=== PATIENT | female | born 1960 | race African-American/Black ===

== ENCOUNTER 2017-12-08 15:16 | Observation (INO) | payer OTHER ==
[2017-12-08] MEDS ORDERED: ONDANSETRON 4 MG/2 ML VIAL ONE ×2 (16:13→17:32)
[2017-12-08] MEDS ORDERED: ASPIRIN 81 MG CHEWABLE TABLET ONE (16:13)
[2017-12-08] MEDS ORDERED: PANTOPRAZOLE 40 MG INJ ONE (16:13)
[2017-12-08] MEDS ORDERED: Morphine 2 MG/2 ML SYR ONE (16:15)
[2017-12-08 16:37] LABS: Absolute Monocytes 0.8 K/uL (0.1-1.3); Absolute Neutrophil 8.5 K/uL (1.8-8.0); Basophils % 0.6 % (0-1.3); Eosinophils % 2.3 % (0-4.4); Hematocrit 38.9 % (36.0-45.0); Lymphocytes % 23.9 % (15.3-44.8); MCH 26.4 pg (27.0-35.0); MCV 83.2 fL (80-100); MPV 9.2 fL (7.6-11.3); RBC Red Blood Cell Count 4.68 M/uL (3.86-4.86)
[2017-12-08 16:45] LABS: Protime INR 0.97
[2017-12-08 16:48] LABS: Bicarbonate 26 mEq/L (21-31); Glucose Level 232 mg/dL (65-120); Potassium 3.4 mEq/L (3.6-5.0); Sodium Level 137 mEq/L (135-145)
[2017-12-08 16:54] LABS: ALT/SGPT 22 IU/L (10-60); AST/SGOT 21 IU/L (10-42); Albumin 3.7 g/dL (3.2-5.5); Alkaline Phosphatase 72 IU/L (42-121); BUN Blood Urea Nitrogen 10 mg/dL (6-20); Bilirubin Direct 0.1 mg/dL (0-0.2); Bilirubin Total 0.5 mg/dL (0.3-1.2); Creatine Phosphokinase 76 IU/L (22-269); Magnesium 1.8 mg/dL (1.8-2.5); Protein, Total 7.1 g/dL (6.0-8.3)
--- NOTE | 2017-12-08 16:54 | RAD REPORT ---
EXAM DESCRIPTION: RAD - Chest Single View - 12/08/2017 4:29 pm CLINICAL HISTORY: Chest pain COMPARISON: June 2017 TECHNIQUE: AP portable chest image was obtained 1625 hours . FINDINGS: Lungs are clear. Heart and vasculature are normal. No measurable pleural effusion and no p neumothorax. No gross bony abnormality seen. No acute aortic findings suspected. IMPRESSION: No acute cardiopulmonary process. No significant interval change.
[2017-12-08 16:57] LABS: CKMB Creatine Kinase MB 1.2 ng/ml (0.3-4.0)
[2017-12-08 17:04] LABS: Lipase 22 U/L (22-51)
[2017-12-08] MEDS ORDERED: FENTANYL CITR 100 MCG/2 ML ONE (17:32)
--- NOTE | 2017-12-08 18:08 | ER ---
Nurse's Notes [facility] Name: Karen Lyons Age: 57 yrs Sex: Female : 1960 Arrival Date: 12/08/2017 Time: 15:18 Bed 20 Private MD: Mila Moraes C Diagnosis: Chest pain, unspecified Presentation: 12/08 15:39 Presenting complaint: Patient states: " I started having CP at around 1030 and it ph hasn't gone away. I have also been having trouble keeping my blood sugar under 300." Pt reports sharp pain in center of chest, also reports nausea, denies SOB. Transition of care: patient was not received from another setting of care. Onset of symptoms was December 08, 2017. Initial Sepsis Screen: Does the patient meet any 2 criteria? No. Patient's initial sepsis screen is negative. Does the patient have a suspected source of infection? No. Patient's initial sepsis screen is negative. Care prior to arrival: None. 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 - Social history:: Smoking status: Patient/guardian denies using tobacco. Screenin:01 Abuse screen: Denies threats or abuse. Denies injuries from another. Nutritional aj1 screening: No deficits noted. Tuberculosis screening: No symptoms or risk factors identified. 19:45 Fall Risk No fall in past 12 months (0 pts). No secondary diagnosis (0 pts). IV access aj1 (20 points). Ambulatory Aid- None/Bed Rest/Nurse Assist (0 pts). Gait- Normal/Bed Rest/Wheelchair (0 pts) Mental Status- Oriented to own ability (0 pts). Total Dumont Fall Scale indicates No Risk (0-24 pts). Assessment: 16:01 General: Appears in no apparent distress. uncomfortable, Behavior is calm, cooperative, aj1 appropriate for age. Pain: Complains of pain in mid-sternal area Pain radiates to neck Pain currently is 8 out of 10 on a pain scale. Quality of pain is described as pressure, stabbing, Pain began at approximately 11:00 today Is continuous, Alleviated by nothing. Aggravated by nothing. Neuro: Level of Consciousness is awake, alert, obeys commands, Oriented to person, place, time, situation, Speech is normal, Facial symmetry appears normal. Cardiovascular: Reports chest pain, lightheadedness, Denies diaphoresis, palpitations, shortness of breath, syncope, Heart tones S1 S2 present Patient's skin is warm and dry. Rhythm is regular Chest pain is described as Pain is 8 out of 10 on a pain scale. quality is pressure, stabbing, is located in substernal area radiates neck began at 11:00 today. Respiratory: Airway is patent Respiratory effort is even, unlabored, Respiratory pattern is regular, symmetrical. GI: No signs and/or symptoms were reported involving the gastrointestinal system. : No signs and/or symptoms were reported regarding the genitourinary system. EENT: No signs and/or symptoms were reported regarding the EENT system. Derm: No signs and/or symptoms reported regarding the dermatologic system. Skin is pink, warm \\T\\ dry. normal. Musculoskeletal: No signs and/or symptoms reported regarding the musculoskeletal system. Circulation, motion, and sensation intact. 16:49 Reassessment: Patient appears in no apparent distress at this time. No changes from aj1 previously documented assessment. Patient and/or family updated on plan of care and expected duration. Pain level reassessed. Patient is alert, oriented x 3, equal unlabored respirations, skin warm/dry/pink. 17:40 Reassessment: Patient appears in no apparent distress at this time. No changes from aj1 previously documented assessment. Patient and/or family updated on plan of care and expected duration. Pain level reassessed. Patient is alert, oriented x 3, equal unlabored respirations, skin warm/dry/pink. Patient reports continued nausea and chest pain. Notified SENTHIL Bruno. 18:40 Reassessment: Patient appears in no apparent distress at this time. No changes from aj1 previously documented assessment. Patient and/or family updated on plan of care and expected duration. Pain level reassessed. Patient is alert, oriented x 3, equal unlabored respirations, skin warm/dry/pink. 19:40 Reassessment: Patient appears in no apparent distress at this time. No changes from aj1 previously documented assessment. Patient and/or family updated on plan of care and expected duration. Pain level reassessed. Patient is alert, oriented x 3, equal unlabored respirations, skin warm/dry/pink. Vital Signs: 15:40 BP 112 / 54; Pulse 87; Resp 18; Temp 97.9; Pulse Ox 99% ; Weight 108.41 kg; Height 5 ph ft. 5 in. (165.10 cm); Pain 7/10; 16:54 BP 122 / 66; Pulse 80; Resp 18; Pulse Ox 97% on R/A; aj1 17:45 BP 112 / 55; Pulse 72; Resp 18; Pulse Ox 99% ; aj1 18:45 BP 116 / 66; Pulse 76; Resp 18; Pulse Ox 95% on R/A; aj1 19:45 BP 117 / 58; Pulse 54; Resp 18; Pulse Ox 98% on R/A; aj1 15:40 Body Mass Index 39.77 (108.41 kg, 165.10 cm) ph ED Course: 15:18 Patient arrived in ED. mr 15:19 Mila Moraes MD is Private Physician. mr 15:33 [facility] Clark [facility]. cp 15:33 Brett Batista MD is Attending Physician. cp 15:40 Triage completed. ph 15:43 Arm band placed on Patient placed in an exam room. ph 16:01 Ivory Rogel, RN is Primary Nurse. aj1 16:01 Patient has correct armband on for positive identification. automobile sales consultant on. Pulse aj1 ox on. NIBP on. 16:01 No provider procedures requiring assistance completed. Patient maintains SpO2 aj1 saturation greater than 95% on room air. 16:10 EKG done, by laser technician. reviewed by Dilan NDIAYE. 3 16:28 XRAY Chest (1 view) In Process Unspecified. EDMS 16:28 Initial lab(s) drawn, by me, sent to lab. Missed attempt(s): 20 gauge in right dh3 antecubital area. Bleeding controlled, band aid applied, catheter tip intact. Missed attempt(s): 24 gauge in right wrist. Bleeding controlled, band aid applied, catheter tip intact. 16:40 Inserted saline lock: 22 gauge in right forearm, using aseptic technique. aj1 18:06 Mila Moraes MD is Hospitalizing Provider. cp 19:45 Report given to MINERVA Sloan on 2nd floor. aj1 19:45 Patient admitted, IV remains in place. aj1 Administered Medications: 16:40 Drug: Zofran 4 mg Route: IVP; Site: right forearm; aj1 20:46 Follow up: Response: No adverse reaction aj1 16:47 Drug: Aspirin Chewable Tablet 324 mg Route: PO; aj1 20:45 Follow up: Response: No adverse reaction aj1 16:47 Drug: morphine 2 mg Route: IVP; Site: right forearm; aj1 20:46 Follow up: Response: No adverse reaction aj1 16:47 Drug: ProTONIX 40 mg Route: IVP; Site: right forearm; aj1 20:46 Follow up: Response: No adverse reaction aj1 17:45 Drug: fentaNYL (PF) 25 mcg Route: IVP; Site: right forearm; aj1 20:47 Follow up: Response: No adverse reaction aj1 17:45 Drug: Zofran 4 mg Route: IVP; Site: right forearm; aj1 20:48 Follow up: Response: No adverse reaction aj1 18:21 Drug: Metoprolol 25 mg Route: PO; aj1 20:47 Follow up: Response: No adverse reaction aj1 18:22 Drug: GI Cocktail without - (Maalox Suspension 30 ml, Lidocaine Liquid 2 % 15 aj1 ml) Route: PO; 20:47 Follow up: Response: No adverse reaction aj1 18:22 Drug: Lovenox 40 mg Route: Sub-Q; Site: left lower abdomen; aj1 20:47 Follow up: Response: No adverse reaction aj1 Outcome: 18:07 Decision to Hospitalize by Provider. cp 20:00 Admitted to Tele accompanied by tech, via wheelchair, with chart. aj1 20:00 Condition: stable 20:00 Discharge instructions given to patient, Instructed on the need for admit, Demonstrated understanding of instructions. 20:48 Patient left the ED. aj1 Signatures: Dispatcher [employer] EDMS Ivory Rogel RN RN aj1 Alis Vasquez Patricia, RN RN ph Dilan Clark PA PA cp Herrera, Deanna dh3 Radha Diaz 3 Corrections: (The following items were deleted from the chart) 20: Admitted to Tele accompanied by tech, via wheelchair, with chart, aj1 aj1 20:43 Condition: stable aj1 aj1 20:43 Discharge instructions given to patient, Instructed on the need for admit, aj1 Demonstrated understanding of instructions, aj1
--- NOTE | 2017-12-08 18:08 | EDPHYS ---
Physician Documentation [facility] Name: Karen Lyons Age: 57 yrs Sex: Female : 1960 Arrival Date: 12/08/2017 Time: 15:18 Bed 20 Private MD: Mila Moraes C ED Physician Brett Batista HPI: 12/08 16:05 This 57 yrs old Black Female presents to ER via Ambulatory with complaints of Chest cp Pain. 16:05 The patient or guardian reports chest pain that is located primarily in the substernal cp area. 16:05 Onset: yesterday, and became worse this morning. cp 16:05 The pain radiates to neck. cp 16:05 Associated signs and symptoms: Pertinent positives: nausea, Pertinent negatives: cp abdominal pain, cough, dizziness, headache, lower extremity pain, lower extremity swelling, shortness of breath, syncope, vomiting. The chest pain is described as a pressure. Duration: The patient or guardian reports multiple episodes, that are intermittent. 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 - Social history:: Smoking status: Patient/guardian denies using tobacco. ROS: 16:08 Constitutional: Negative for body aches, chills, fever, poor PO intake. cp 16:08 Eyes: Negative for injury, pain, redness, and discharge. cp 16:08 ENT: Negative for drainage from ear(s), ear pain, sore throat, difficulty swallowing, difficulty handling secretions. 16:08 Neck: Negative for pain with movement, pain at rest, stiffness, tenderness, bony tenderness. 16:08 Cardiovascular: Positive for chest pain, Negative for edema, palpitations. 16:08 Respiratory: Negative for cough, shortness of breath, wheezing. 16:08 Abdomen/GI: Negative for abdominal pain, nausea, vomiting, and diarrhea, black/tarry stool, rectal bleeding. 16:08 Back: Negative for pain at rest, pain with movement, radiated pain. 16:08 : Negative for urinary symptoms. 16:08 Skin: Negative for cellulitis, rash. 16:08 Neuro: Negative for altered mental status, dizziness, headache, weakness. 16:08 All other systems are negative. Exam: 15:40 ECG was reviewed by the Attending Physician. cp 16:15 Constitutional: The patient appears in no acute distress, alert, awake, cp non-diaphoretic, non-toxic, well developed, well nourished, uncomfortable, overweight 16:15 Head/Face: Normocephalic, atraumatic. Eyes: Pupils equal round and reactive to light, cp extra-ocular motions intact. Lids and lashes normal. Conjunctiva and sclera are non-icteric and not injected. Cornea within normal limits. Periorbital areas with no swelling, redness, or edema. ENT: Nares patent. No nasal discharge, no septal abnormalities noted. Tympanic membranes are normal and external auditory canals are clear. Oropharynx with no redness, swelling, or masses, exudates, or evidence of obstruction, uvula midline. Mucous membranes moist. Neck: Trachea midline, no thyromegaly or masses palpated, and no cervical lymphadenopathy. Supple, full range of motion without nuchal rigidity, or vertebral point tenderness. No Meningismus. Chest/axilla: Normal chest wall appearance and motion. Nontender with no deformity. No lesions are appreciated. 16:15 Cardiovascular: Rate: normal, Rhythm: regular, Pulses: Pulses are 2+ in right radial artery and left radial artery. Edema: is not appreciated, JVD: is not appreciated. 16:15 Respiratory: the patient does not display signs of respiratory distress, Respirations: normal, no use of accessory muscles, no retractions, no splinting, no tachypnea, labored breathing, is not present, Breath sounds: are clear throughout, no decreased breath sounds, no stridor, no wheezing. 16:15 Abdomen/GI: Inspection: obese Bowel sounds: active, all quadrants, Palpation: abdomen is soft and non-tender, in all quadrants, rebound tenderness, is not appreciated, voluntary guarding, is not appreciated, involuntary guarding, is not appreciated. 16:15 Back: pain, is absent, ROM is normal. 16:15 Skin: cellulitis, is not appreciated, no rash present. 16:15 Neuro: Orientation: to person, place \T\ time. Mentation: lucid, able to follow commands, Cerebellar function: is grossly normal, Motor: moves all fours, strength is normal, Sensation: is normal. Vital Signs: 15:40 BP 112 / 54; Pulse 87; Resp 18; Temp 97.9; Pulse Ox 99% ; Weight 108.41 kg; Height 5 ph ft. 5 in. (165.10 cm); Pain 7/10; 16:54 BP 122 / 66; Pulse 80; Resp 18; Pulse Ox 97% on R/A; aj1 17:45 BP 112 / 55; Pulse 72; Resp 18; Pulse Ox 99% ; aj1 18:45 BP 116 / 66; Pulse 76; Resp 18; Pulse Ox 95% on R/A; aj1 19:45 BP 117 / 58; Pulse 54; Resp 18; Pulse Ox 98% on R/A; aj1 15:40 Body Mass Index 39.77 (108.41 kg, 165.10 cm) ph MDM: 15:33 Patient medically screened. cp 18:00 The patient was given aspirin in the Emergency Department. cp 18:00 Differential diagnosis: abnormal EKG, acute myocardial infarction, chest wall pain, cp gastroesophageal reflux disease (GERD), pericarditis, pleurisy, pneumonia, pneumothorax, pulmonary embolus, stable angina, unstable angina. Data reviewed: vital signs, nurses notes, lab test result(s), EKG, radiologic studies, plain films. Test interpretation: by ED physician or midlevel provider: ECG, plain radiologic studies. 18:05 Physician consultation: A Dimitry HU was called at 18:00, was contacted at 18:00, regarding admission, to the telemetry unit. patient's condition. 12/08 16:00 Order name: Basic Metabolic Panel; Complete Time: 17:07 12/08 17:07 Interpretation: Normal except: K 3.4; GLUC 232. 12/08 16:00 Order name: BNP; Complete Time: 17:07 12/08 16:00 Order name: CBC with Diff; Complete Time: 16:43 12/08 16:43 Interpretation: Normal except: WBC 12.6; MCH 26.4; MCHC 31.7; NEUT A 8.5. 12/08 16:00 Order name: Ckmb; Complete Time: 17:07 12/08 16:00 Order name: CPK; Complete Time: 17:07 cp 12/08 16:00 Order name: LFT's; Complete Time: 17:07 cp 12/08 16:00 Order name: Magnesium; Complete Time: 17:07 cp 12/08 16:00 Order name: PT-INR; Complete Time: 17:07 cp 12/08 16:00 Order name: Ptt, Activated; Complete Time: 17:07 cp 12/08 16:00 Order name: Troponin (emerg Dept Use Only); Complete Time: 17:07 cp 12/08 16:00 Order name: Lipase; Complete Time: 17:07 cp 12/08 18:13 Order name: Basic Metabolic Panel EDMS 12/08 18:13 Order name: Basic Metabolic Panel EDMS 12/08 18:13 Order name: CBC with Automated Diff EDMS 12/08 16:00 Order name: XRAY Chest (1 view); Complete Time: 17:07 cp 12/08 16:00 Order name: EKG; Complete Time: 16:01 cp 12/08 18:13 Order name: CONS Physician Consult EDMS 12/08 18:13 Order name: CBC with Automated Diff EDMS 12/08 18:13 Order name: Troponin I EDMS 12/08 18:13 Order name: Troponin I EDME 12/08 18:13 Order name: Troponin I EDME 12/08 16:00 Order name: Cardiac monitoring; Complete Time: 16:47 cp 12/08 16:00 Order name: EKG - Nurse/Tech; Complete Time: 16:48 cp 12/08 16:00 Order name: IV Saline Lock; Complete Time: 16:47 cp 12/08 16:00 Order name: Labs collected and sent; Complete Time: 16:48 cp 12/08 16:00 Order name: O2 Per Protocol; Complete Time: 16:48 cp 12/08 16:00 Order name: O2 Sat Monitoring; Complete Time: 16:48 cp 12/08 18:13 Order name: Regular EDMS 12/08 18:13 Order name: EKG Electrocardiogram EDMS 12/08 18:13 Order name: EKG Electrocardiogram EDMS 12/08 18:13 Order name: EKG Electrocardiogram EDMS 12/08 18:13 Order name: EKG Electrocardiogram EDME EC:40 Rate is 89 beats/min. Rhythm is regular. NV interval is normal. QRS interval is normal. cp QT interval is normal. No ST changes noted. Interpreted by me. Reviewed by me. Administered Medications: 16:40 Drug: Zofran 4 mg Route: IVP; Site: right forearm; aj1 20:46 Follow up: Response: No adverse reaction aj1 16:47 Drug: Aspirin Chewable Tablet 324 mg Route: PO; aj1 20:45 Follow up: Response: No adverse reaction aj1 16:47 Drug: morphine 2 mg Route: IVP; Site: right forearm; aj1 20:46 Follow up: Response: No adverse reaction aj1 16:47 Drug: ProTONIX 40 mg Route: IVP; Site: right forearm; aj1 20:46 Follow up: Response: No adverse reaction aj1 17:45 Drug: fentaNYL (PF) 25 mcg Route: IVP; Site: right forearm; aj1 20:47 Follow up: Response: No adverse reaction aj1 17:45 Drug: Zofran 4 mg Route: IVP; Site: right forearm; aj1 20:48 Follow up: Response: No adverse reaction aj1 18:21 Drug: Metoprolol 25 mg Route: PO; aj1 20:47 Follow up: Response: No adverse reaction aj1 18:22 Drug: GI Cocktail without - (Maalox Suspension 30 ml, Lidocaine Liquid 2 % 15 aj1 ml) Route: PO; 20:47 Follow up: Response: No adverse reaction aj1 18:22 Drug: Lovenox 40 mg Route: Sub-Q; Site: left lower abdomen; aj1 20:47 Follow up: Response: No adverse reaction aj1 Disposition: 21:05 Co-signature as Attending Physician, Brett Batista MD. rn Disposition: 12/08/17 18:07 Hospitalization ordered by Mila Moraes for Observation. Preliminary diagnosis is Chest pain, unspecified. - Bed requested for Telemetry/MedSurg (observation). - Status is Observation. aj1 - Condition is Stable. - Problem is new. - Symptoms have improved. UTI on Admission? No Signatures: Dispatcher [employer] EDMS Ivory Rogel RN RN aj1 Nicolasa Harkins RN RN mw Nieto, Roman, MD MD rn Hall, Patricia, RN RN Dilan Clark PA PA cp Corrections: (The following items were deleted from the chart) 19:29 18:07 Hospitalization Ordered by A Dimitry HU for Observation. Preliminary diagnosis is mw Chest pain, unspecified. Bed requested for Telemetry/MedSurg (observation). Status is Observation. Condition is Stable. Problem is new. Symptoms have improved. UTI on Admission? No. cp 20:48 19:29 12/08/2017 18:07 Hospitalization Ordered by A Dimitry HU for Observation. aj1 Preliminary diagnosis is Chest pain, unspecified. Bed requested for Telemetry/MedSurg (observation). Status is Observation. Condition is Stable. Problem is new. Symptoms have improved. UTI on Admission? No. mw
[2017-12-08] MEDS ORDERED: ACETAMINOPHEN 500 MG TAB PO PRN (18:09)
[2017-12-08] MEDS ORDERED: ONDANSETRON 4 MG/2 ML VIAL IV PRN (18:09)
[2017-12-08] MEDS ORDERED: Morphine 2 MG/2 ML SYR IV PRN (18:09)
[2017-12-08] MEDS ORDERED: GLUCAGON 1 MG/VIAL IM PRN (18:09)
[2017-12-08] MEDS ORDERED: D50W 25 GM/50 ML SYRINGE IV PRN (18:09)
[2017-12-08] MEDS ORDERED: MAGNE/ALUM HYDROXD 30 ML UCUP ONE (18:11)
[2017-12-08] MEDS ORDERED: METOPROLOL TAR 25 MG TAB ONE (18:11)
[2017-12-08] MEDS ORDERED: ENOXAPARIN 40 MG/0.4 ML SQ ONE (18:12)
[2017-12-08] MEDS ORDERED: LIDOCAINE VISCOUS 2% SOLN 15 ML UDC ONE (18:12)
[2017-12-08] MEDS: ENOXAPARIN 30 MG/0.3 ML SQ SCH (21:00)
[2017-12-08] MEDS: INSULIN -REGULAR HUMAN 50 UNIT/0.5 ML ML SQ SCH (21:00)
[2017-12-08 23:42] VITALS: BMI 39.7
[2017-12-09 04:54] LABS: Absolute Lymphocytes (CBC) 3.4 K/uL (0.7-4.9); Absolute Monocytes 0.9 K/uL (0.1-1.3); Absolute Neutrophil 6.6 K/uL (1.8-8.0); Basophils % 0.6 % (0-1.3); Eosinophils % 1.8 % (0-4.4); Hematocrit 37.9 % (36.0-45.0); Lymphocytes % 30.6 % (15.3-44.8); MCH 26.7 pg (27.0-35.0); MCV 83.7 fL (80-100); MPV 9.6 fL (7.6-11.3); RBC Red Blood Cell Count 4.53 M/uL (3.86-4.86)
[2017-12-09 06:01] LABS: Magnesium 1.9 mg/dL (1.8-2.5); Potassium 4.4 mEq/L (3.6-5.0); Thyroid Stimulating Hormone 2.53 uIU/mL (0.34-5.60)
--- NOTE | 2017-12-09 06:23 | HP ---
Date of Admission: 12/08/2017 Chief Complaint: Chest pain. History Of Present Illness: Ms. Lyons is a pleasant 57-year-old female patient who started to have some chest pain with left arm pain and pain in her left side of neck and left jaw area about a week a go and she took 1 aspirin at that particular time after she talked to her daughter and did not seek a md medical attention. She was doing fine until today when she [place] [facility] [place] when she started to have significant pressure type of pain in the center of her chest, and it was radiating to her neck and left jaw area. This intense pain lasted for 2-3 minutes and then her pain continued to a lesser severity and she went to [place] with her , and she wa s not feeling any better at all. So, they came back to [facility] and came to emergency room and her pain continued throughout this time until she received her aspirin and morphine in the emergency room, aft er that her pain has improved. Denies any shortness of breath but has some nausea associated with th is. I saw her in the emergency room this evening for this hospital admission. Allergies: NO KNOWN ALLERGIES. Medications: According to office records, she is on glimepiride 4 mg 2 times a day, Januvia 100 mg d aily, metformin 850 mg every day. Review of Systems: Cardiovascular: As mentioned above. All other systems reviewed and negative. Past Medical History: Significant for breast cancer, type 2 diabetes mellitus, uncontrolled. Past Surgical History: Hysterectomy in 2010, appendectomy, partial colectomy in 2010 and lumpectomy of left breast in 2002 due to breast cancer. Family History: Not pertinent. Social History: Prior history of smoking, not at present time. Use of alcohol negative. Physical Examination: Vital Signs: When she came into emergency room blood pressure 112/54, pulse 87, respiratory rate 18, temperature 97.9, pulse ox 99%, weight 108.41 kg, height 5 feet 5 inches. General: Awake, alert, oriented, not in distress. HEENT: Head atraumatic, normocephalic. Conjunctivae nonerythematous. Sclerae white. Mouth, no thr ush or edema noted. Ears/Nose, no mass, lesion, discharge noted. Neck: Supple. No JVD, lymph nodes, bruit, thyromegaly noted. Lungs: Bilateral good equal air entry. Clear to auscultation. No rhonchi. No rales. Heart: Normal heart sounds, no murmur or gallop. Abdomen: Soft, bowel sounds normal. No guarding, rigidity, tenderness, mass, hepatosplenomegaly, dis tention, or bruit noted. Extremities: No leg edema. No calf tenderness. Skin: No rash, ulcer, cellulitis. Lymphatics: No lymph node enlargement in neck, supraclavicular, infraclavicular region. Neuro: No focal neurological deficit. Chest: Unremarkable. External Genitalia: Deferred. Rectal: Deferred. Laboratory Data: EKG normal sinus rhythm, no acute ST-T wave changes. Chest x-ray, no acute cardiop ulmonary changes. White count 12.6, hemoglobin 12.4, platelets 352, PT and PTT normal. Sodium 137, potassium 3.4, chloride 103, bicarb 26, BUN 10, creatinine 0.76, glucose 232. Liver function tests u nremarkable. BNP 52. Troponin less than 0.03. Lipase 22. Impression: 1.Chest pain. 2.Hypokalemia. 3.Gyq-vnwjvbe-rimtuyfuy diabetes mellitus, uncontrolled. 4.Breast cancer, left breast. Plan: We will go ahead and admit the patient to hospital for further evaluation and management of th is problem. The patient is appropriate for observation. We will get serial cardiac enzymes. Consul t Cardiology. Replace electrolyte per protocol. We will get hemoglobin A1c and lipid profile done t omorrow morning. The patient is not compliant with her diet, exercise, or followup appointment and d epending on A1c results, we will decide further need for adjustment on diabetes medication. We will order echocardiogram and stress test to be done tomorrow morning. If her cardiac enzyme comes back a bnormal then we may have to consider a cardiac cath instead of stress test. We will give Lovenox per order. I will see her tomorrow for followup. SATINDER/MODL Voice ID: [id number]
[2017-12-09] MEDS ORDERED: ENOXAPARIN 30 MG/0.3 ML SQ ONE (06:30)
--- NOTE | 2017-12-09 06:35 | EKG ---
Test Date: 2017-12-08 Test Time: 15:32:55 School Laboratory Technician: SAADIA MEASUREMENT RESULTS: Intervals: Rate: 89 TX: 158 QRSD: 74 QT: 350 QTc: 425 [place]: P: 81 TX: 158 QRS: 34 T: 34 INTERPRETIVE STATEMENTS: Normal sinus rhythm Normal ECG Compared to ECG 07/23/2017 13:00:58 No significant changes Electronically Signed On 12-09-17 06:34:39 CDT by Otis Holder
[2017-12-09] MEDS: INSULIN -REGULAR HUMAN 50 UNIT/0.5 ML ML SQ SCH ×4 (07:30→20:29)
[2017-12-09] MEDS: ENOXAPARIN 30 MG/0.3 ML SQ SCH ×2 (07:48→20:29)
[2017-12-09] MEDS ORDERED: REGADENOSON 0.4 MG/5 ML SYR IV ONE (08:23)
[2017-12-09] MEDS: SITAGLIPTIN PHOS 100 MG TAB PO SCH (09:00)
--- NOTE | 2017-12-09 10:59 | ECHO ---
HEIGHT: 5 ft 5 in WEIGHT: 239 lb 0 oz DATE OF STUDY: 12/09/[address]: 2-DIMENSIONAL: YES M.MODE: YES DOPPLER: YES COLOR FLOW: YES TDS: NO PORTABLE: NO DEFINITY: NO BUBBLE STUDY: NO DIAGNOSIS: CHEST PAIN CARDIAC HISTORY: CATHERIZATION: NO SURGERY: NO PROSTHETIC VALVE: NO PACEMAKER: NO MEASUREMENTS (cm) DIASTOLIC (NORMALS) SYSTOLIC (NORMALS) IVSd 1.0 (0.6-1.2) LA Diam 3.5 (1.9-4.0) LVEF 52% LVIDd 4.4 (3.5-5.7) LVIDs 3.2 (2.0-3.5) %FS 26% LVPWd 1.0 (0.6-1.2) Ao Diam 2.5 (2.0-3.7) 2 DIMENSIONAL ASSESSMENT: RIGHT ATRIUM: NORMAL LEFT ATRIUM: NORMAL RIGHT VENTRICLE: NORMAL LEFT VENTRICLE: NORMAL TRICUSPID VALVE: NORMAL MITRAL VALVE: NORMAL PULMONIC VALVE: NORMAL AORTIC VALVE: NORMAL PERICARDIAL EFFUSION: NONE AORTIC ROOT: NORMAL LEFT VENTRICULAR WALL MOTION: DOPPLER/COLOR FLOW: TRACE MITRAL AND TRICUSPID REGURGITATION COMMENTS: NORMAL 2D ECHOCARDIOGRAM. TRACE MITRAL AND TRICUSPID REGURGITATION. TECHNOLOGIST: JOSE MANUEL HURTADO RDCS
--- NOTE | 2017-12-09 11:08 | RAD REPORT ---
EXAM DESCRIPTION: US - Abdomen Exam Complete - 12/09/2017 9:44 am CLINICAL HISTORY: Abdominal pain, possible cholelithiasis, breast cancer history COMPARISON: None. FINDINGS: Gallbladder size is normal. No gallstones, wall thickening or pericholecystic fluid. Commo n bile duct is normal with no common duct stone identified. Liver and spleen are normal in size. No f ocal splenic lesion. The liver shows a very coarsened, increased echogenicity with a diminished sonog raphic penetrance. This is a pattern typical for diffuse fatty infiltration. Other hepatic parenchyma l disease processes can give this pattern. No focal liver lesions seen. Ability to detect liver lesio ns is diminished in a fatty infiltration pattern. The pancreas is obscured. No hydronephrosis or suspicious mass in either kidney. Benign renal cysts are present. Aorta is obscured. No ascites or bulky lymphadenopathy. IMPRESSION: No gallbladder or biliary tree abnormality. Diffuse fatty infiltration pattern of the liver. This pattern can be seen as well other hepatic paren chymal disease processes. Ability to detect liver lesions is diminished in this setting. Pancreas and aorta are too obscured by bowel gas. Concerns for focal liver lesion, pancreatic abnormality or aortic aneurysm can be addressed with CT i maging.
[2017-12-09] MEDS: ASPIRIN EC 81 MG TAB PO SCH (12:23)
--- NOTE | 2017-12-09 12:29 | RAD REPORT ---
EXAM DESCRIPTION: NM - Rest Stress Cardiac Imaging - 12/09/2017 11:55 am CLINICAL HISTORY: Chest pain COMPARISON: October 2013 TECHNIQUE: The patient was administered 10.6 mCi of Tc 99m Sestamibi prior to resting SPECT imaging of the heart. The patient was then administered 31.9 mCi of Tc 99m Sestamibi following exercise or ph armacologic stress. Multiplanar SPECT images were reviewed. FINDINGS: The end diastolic volume is 83 ml, the end systolic volume is 38 ml, and the ejection frac tion is 55 %. End-diastolic volume measure slightly larger and ejection fraction measures 12 percenta ge points lower than the 2014 study. No stress-induced ischemic changes are identifiable. A small fixed defect is seen at the apex matchin g the 2014 study. A larger moderately large fixed defect involves the inferior wall. This was not pre sent on the prior study. IMPRESSION: No stress-induced ischemic change. Moderately large fixed defect inferior wall new from the 2014 study. This is favored to be scarring r ather than diaphragm attenuation artifact. Ventricular volumes and ejection fraction are normal range. However, the ejection fraction has decrea sed by 12 percentage points since 2014.
[2017-12-09 12:47] LABS: Urine Appearance CLEAR; Urine Bilirubin NEGATIVE (NEG); Urine Blood NEGATIVE (NEG); Urine Color YELLOW; Urine Glucose NEGATIVE (NEG); Urine Protein NEGATIVE (NEG); Urine Urobilinogen 0.2 mg/dL (0.2-1.0)
[2017-12-09 12:48] LABS: Urine Microscopic Reflex NO UMIC
--- NOTE | 2017-12-09 13:04 | CON ---
Identification: A 57-year-old woman. Chief Complaint: Chest pain. History Of Present Illness: Ms. Lyons has had chest pain twice in the last few weeks. One it was a ll in the left arm, numbness, not so much pain. She sought no medical attention for that. Then yest erday, about 10 hours or so after eating, she developed pain. She was in a car driving. She managed to do her errands 50 miles away from home. The pain continued. She came home. The pain continued and then she came to the emergency room. Since being in the emergency room, she has had normal cardi ac enzymes, normal EKG, and chest pain has resolved. Past Medical History: The patient has no history of heart disease. She had breast cancer in 2002 an d had chemotherapy, 5 rounds with a regimen that included 5-FU. It was in the left breast. She had a hysterectomy. She had a brachial plexus injury in the right arm. Multigravida. She does not have hypertension. She has underlying diabetes. Social History: She uses no tobacco. She is morbidly obese. Physical Examination: Vital Signs: 5 feet 5 inches, 239 pounds. HEENT: Normal. Lungs: Clear. Heart: no friction rub. No murmur or gallop. Abdomen: Soft. Extremities: Normal pulses. No cyanosis, clubbing, or edema. EKG normal. She is scheduled for a pharmacologic nuclear stress test and an echocardiogram. If those are normal, I would be very concerned that we should do a CT of the chest to rule out pulmonary embolus and do a n ultrasound of the abdomen to rule out gallstones. Thank you very much for your kind referral of Ms. Lyons. I will follow her with you. LINSEY Voice ID: [id number] Report ID: [id number]
--- NOTE | 2017-12-09 13:14 | TREADPHA ---
DX: CHEST PAIN Date of Study: 12/09/17 Ht: 5 5 Wt: 239 lb 0 oz Consulting Physician: JEAN MARIE MEDICATIONS: TYLENOL, ASPIRIN, DEXTROSE, GLUCAGEN, LOVENOX, NOVOLIN R ZOFRAN, JANUVIA. HISTORY: 57 YEAR OLD FEMALE WITH COMPLAINTS OF CHEST PAIN. HISTORY OF DIABETES MELLITUS. PHYSICIAL EXAMINATION: RESTING B.P.: 116/55 RESTING H.R.: 69 RESTING EKG: NORMAL. PROTOCOL: LEXISCAN EXERCISE TIME: 3:30 B.P. AT PEAK STRESS: 119/73 135/96 IMPRESSION: LEXISCAN INJECTED, CARDIOLITE INJECTED PER PROTOCOL, SEE NUCLEAR MEDICINE REPORT. NO CHEST PAIN. OCCASIONAL PREMATURE VENTRICULAR COMPLEXES NOTED THROUGHOUT TEST. NO SUPRA VENTRICULAR TACHYCARDA, NO VENTRICULAR TACHYCARDIA. NON DIAGNOSTIC EKG WITH LEXISCAN STRESS.
[2017-12-09 14:20] LABS: A1c Component 1.08 mg/dL; Hemoglobin A1c 10.1 % (4-6.0)
--- NOTE | 2017-12-09 19:49 | RAD REPORT ---
EXAM DESCRIPTION: CT - Chest For Pe Angio - 12/09/2017 7:33 pm CLINICAL HISTORY: Chest pain COMPARISON: 2014 TECHNIQUE: Dynamically enhanced axial 3 mm thick images of the chest were obtained during administra tion of <100> mL Isovue 370 IV contrast. Coronal and oblique reconstruction images were generated and reviewed. Exam utilizes a protocol for optimal evaluation of pulmonary arterial tree. All CT scans are performed using dose optimization technique as appropriate and may include automated exposure control or mA/KV adjustment according to patient size. FINDINGS: A pulmonary embolus is not seen. A thoracic aortic aneurysm is not noted. Mild hilar and mediastinal lymphadenopathy is stable A pleural effusion is not seen. A pericardial effusion is not seen. A 6.5 millimeter nodule is present within the lingula is unchanged and likely benign IMPRESSION: Negative for a pulmonary embolism.
--- NOTE | 2017-12-10 00:34 | PN ---
Date of Progress Note: 12/09/2017 Subjective: The patient was seen this morning for followup. No new complaints or problems reported by patient. Lying in bed, not in any distress. Objective: Vital Signs: Reviewed. HEENT: Unremarkable. Lungs: Clear to auscultation. Heart: Heart sounds normal. Abdomen: Soft. Bowel sounds normal. No guarding, rigidity, tenderness, or distention. Extremities: No leg edema. Laboratory Data: White count 11.1, hemoglobin 12.1, platelets 324. Sodium 139, potassium 4.4, chlor king 107, bicarb 27, BUN 12, creatinine 0.91, glucose 302, hemoglobin A1c 10.1, TSH 2.53, triglyceride 211, total cholesterol 145, LDL 67. The patient's stress test came back negative for stress-induced ischemia. Echocardiogram was unremarkable. Abdominal ultrasound showed fatty liver. No other acut e changes. Impression: 1.Chest pain. 2.Type 2 diabetes mellitus, uncontrolled. 3.Hyperlipidemia. 4.Fatty liver disease. Plan: We will continue current diabetes medications. Cardiology consultation is appreciated. We wi ll go ahead and get a CAT scan of the chest done per PE protocol to rule out pulmonary embolism and t hen decide further plan of treatment. We will make adjustment on her diabetes medication upon discha rge and consider to start her on statin therapy. The patient was advised to be compliant with her diet, exercise, and weight loss. SATINDER/MODL Voice ID: [id number] Report ID: [id number]
[2017-12-10 05:22] VITALS: O2SAT 97
[2017-12-10] MEDS: INSULIN -REGULAR HUMAN 50 UNIT/0.5 ML ML SQ SCH (08:05)
[2017-12-10] MEDS: SITAGLIPTIN PHOS 100 MG TAB PO SCH (08:05)
[2017-12-10] MEDS: ENOXAPARIN 30 MG/0.3 ML SQ SCH (08:05)
[2017-12-10] MEDS: ASPIRIN EC 81 MG TAB PO SCH (08:05)
[2017-12-10] MEDS ORDERED: MORPHINE 4 MG/ML SYR IV PRN (08:37)
[2017-12-10 12:46] VITALS: BP 109/53; TEMP 97.9
--- NOTE | 2017-12-11 06:01 | DS ---
Date of Discharge: 12/10/2017 Disposition: Discharged to go home. Physical Examination: HEENT: Unremarkable. Lungs: Clear to auscultation. Heart: Sounds normal. Abdomen: Soft, bowel sounds normal. No guarding, rigidity, tenderness, or distention. Extremities: No leg edema. Laboratory Data: White count yesterday 11.1, hemoglobin 12, platelets 324. Troponin less than 0.03 x3, triglyceride 211, cholesterol 145, hemoglobin A1c 10.1. Chest x-ray unremarkable. CAT scan of t he chest per PE protocol, negative for pulmonary embolism and approximately 6 mm pulmonary nodule in lung unchanged from 2016. Stress test negative for stress-induced ischemia. Echocardiogram shows ej ection fraction 53%, otherwise unremarkable. Hospital Course: A 57-year-old female patient admitted to the hospital with complaints of chest pain . Please see dictated H and P for more information. The patient was evaluated in the ER. She was a dmitted to the hospital. Cardiology consultation was obtained. CA was ruled out by getting serial c ardiac enzymes. The patient had a negative stress test. Abdominal ultrasound showed evidence of fat ty liver disease, otherwise no other acute changes. Her diabetes is not under good control. She brett es her medication as prescribed, but not doing any exercise and probably not compliant with diet. We did talk about importance of controlling her diabetes with diet, exercise, weight loss, and medicati ons. At this point, we will go ahead and stop all her oral hypoglycemic medication and I have instru cted her to start taking Toujeo insulin. She was started at 15 units at bedtime and every 3 days, sh e will need 3 more units as long as her morning blood sugar reading before breakfast remains higher t fish 130. The patient will also start Victoza in the morning 0.6 mg subcutaneous injection daily for 1 week then 1.2 mg subcutaneous injection daily for 1 week, and then 1.8 mg subcutaneous injection da modesta to continue. We will also start her on atorvastatin 20 mg daily in the evening time and aspirin 81 mg p.o. daily. The patient will follow up at my office in 2-3 weeks and she will bring her finger stick blood sugar readings result and she was advised to check her sugar before breakfast and before supper. The patient was given written instruction regarding her medication and also gave her all thi s instruction personally and then after discharge from the hospital, she came to office and she was g iven sample of Farhat and Marlene and I explained how to use those medications. Final Diagnoses: 1.Chest pain. 2.Type 2 diabetes mellitus, uncontrolled. 3.Mixed hyperlipidemia. 4.Left breast cancer. 5.Pulmonary nodule. 6.Hypokalemia. 7.Fatty liver disease. SATINDER/MODL Voice ID: [id number] Report ID: [id number]
== END 2017-12-10 10:50 | disposition home or self-care (01) ==
LOC: ER 15:16 → ERHOLD 18:09 → 2ND 19:49
PROVIDERS: ADMIT Internal Medicine; ATTEND Internal Medicine
DX: R07.9 Chest pain, unspecified (principal); E11.65 Type 2 diabetes mellitus with hyperglycemia; E78.2 Mixed hyperlipidemia; R91.1 Solitary pulmonary nodule; E87.6 Hypokalemia; K76.0 Fatty (change of) liver, not elsewhere classified; Z85.3 Personal history of malignant neoplasm of breast; Z91.040 Latex allergy status; E66.01 Morbid (severe) obesity due to excess calories; Z68.39 Body mass index [BMI] 39.0-39.9, adult
CPT/HCPCS: 36415; 71045; 71275; 76700; 78452; 80048; 80061; 80076; 81003; 82550; 82553; 82962; 83036; 83690; 83735; 83880; 84443; 84484; 85025; 85610; 85730; 93005; 93017; 93306; 96372; 96374; 96375; 99285; A9500; C9113; G0378; J1650; J2270; J2405; J2785; J3010; Q9967

== ENCOUNTER 2018-03-12 16:24 | Emergency (ER) | payer OTHER ==
[2018-03-12] MEDS ORDERED: NA CHLORIDE 0.9% 1,000 ML ONE ×2 (17:47→20:00)
[2018-03-12] MEDS ORDERED: ONDANSETRON 4 MG/2 ML VIAL ONE ×2 (17:47→20:37)
[2018-03-12 18:17] LABS: ALT/SGPT 26 U/L (12-78); AST/SGOT 18 U/L (15-37); Albumin 3.8 g/dL (3.4-5.0); Alkaline Phosphatase 81 U/L (45-117); BUN Blood Urea Nitrogen 7 mg/dL (7-18); Bicarbonate 29 mmol/L (21-32); Bilirubin Direct 0.1 mg/dL (0-0.2); Bilirubin Total 0.5 mg/dL (0.2-1.0); CKMB Creatine Kinase MB < 1.0 ng/mL (0.3-3.6); Creatine Phosphokinase 78 U/L (26-192); Glucose Level 105 mg/dL (74-106); Lipase 82 U/L (73-393); Magnesium 2.3 mg/dL (1.8-2.4); NT PRO-BNP 26 pg/mL (<125); Potassium 3.8 mmol/L (3.5-5.1); Protein, Total 8.3 g/dL (6.4-8.2); Sodium Level 139 mmol/L (136-145)
--- NOTE | 2018-03-12 18:46 | RAD REPORT ---
EXAM DESCRIPTION: RAD - Chest Single View - 03/12/2018 6:25 pm CLINICAL HISTORY: Chest pain COMPARISON: November 2017 TECHNIQUE: AP portable chest image was obtained 1822 hours . FINDINGS: Lungs are clear. Heart and vasculature are normal. No measurable pleural effusion and no p neumothorax. No gross bony abnormality seen. No acute aortic findings suspected. IMPRESSION: No acute cardiopulmonary process. No significant interval change.
[2018-03-12 19:05] LABS: Absolute Lymphocytes (CBC) 2.1 K/uL (0.7-4.9); Absolute Monocytes 0.7 K/uL (0.1-1.3); Absolute Neutrophil 7.7 K/uL (1.8-8.0); Basophils % 0.4 % (0-1.3); Eosinophils % 0.6 % (0-4.4); Hematocrit 26.1 % (36.0-45.0); MCV 82.7 fL (80-100); MPV 9.2 fL (7.6-11.3); Monocytes % 6.2 % (3.3-12.3); RBC Red Blood Cell Count 3.16 M/uL (3.86-4.86)
[2018-03-12 19:07] LABS: Protime INR 1.4
[2018-03-12] MEDS ORDERED: MAGNE/ALUM HYDROXD 30 ML UCUP ONE (19:32)
[2018-03-12] MEDS ORDERED: LIDOCAINE VISCOUS 2% SOLN 15 ML UDC ONE (19:33)
--- NOTE | 2018-03-12 19:54 | RAD REPORT ---
EXAM DESCRIPTION: US - Abdomen Exam Limited - 03/12/2018 7:11 pm CLINICAL HISTORY: Abdominal pain COMPARISON: None. FINDINGS: No gallstones, sludge or other abnormalities within the gallbladder lumen. There is no wal l thickening or pericholecystic fluid. No common duct stone or biliary tree dilatation identified. Partially imaged liver shows diffuse fatty infiltration. This has been previously diagnosed. IMPRESSION: Normal gallbladder and biliary tree ultrasound. Fatty liver.
[2018-03-12] MEDS ORDERED: FAMOTIDINE 20 MG/2 ML VIAL IV ONE (20:00)
[2018-03-12] MEDS ORDERED: PANTOPRAZOLE 40 MG INJ ONE (20:37)
--- NOTE | 2018-03-12 20:37 | ER ---
Nurse's Notes [facility] Name: Karen Lyons Age: 57 yrs Sex: Female : 1960 Arrival Date: 03/12/2018 Time: 16:27 Bed 23 Private MD: Mayank Moraes Diagnosis: Nausea and vomiting;Epigastric abdominal tenderness Presentation: 03/12 16:32 Presenting complaint: Patient states: epigastric pain, vomiting, pain in neck and left la1 arm since this morning. Transition of care: patient was not received from another setting of care. Onset of symptoms was March 12, 2018. Risk Assessment: Do you want to hurt yourself or someone else? Patient reports no desire to harm self or others. Initial Sepsis Screen: Does the patient meet any 2 criteria? HR > 90 bpm. No. Patient's initial sepsis screen is negative. Does the patient have a suspected source of infection? No. Patient's initial sepsis screen is negative. Care prior to arrival: None. 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 - Social history:: Smoking status: Patient/guardian denies using tobacco. - Ebola Screening: : No symptoms or risks identified at this time. Screenin:58 Abuse screen: Denies threats or abuse. Denies injuries from another. Nutritional aj screening: No deficits noted. Tuberculosis screening: No symptoms or risk factors identified. Fall Risk None identified. Assessment: 17:58 General: Appears in no apparent distress. comfortable, Behavior is calm, cooperative, aj appropriate for age. Pain: Complains of pain in epigastric area and right upper quadrant. Neuro: Level of Consciousness is awake, alert, obeys commands, Oriented to person, place, time, situation, Appropriate for age. Respiratory: Airway is patent Respiratory effort is even, unlabored, Respiratory pattern is regular, symmetrical. GI: Abdomen is obese, Bowel sounds present X 4 quads. Abd is soft and non tender X 4 quads. Reports upper abdominal pain, epigastric pain, nausea, vomiting. Derm: Skin is intact, is healthy with good turgor, Skin is pink, warm \T\ dry. normal. 20:45 Reassessment: Patient appears in no apparent distress at this time. No changes from aj previously documented assessment. Patient and/or family updated on plan of care and expected duration. Pain level reassessed. Patient is alert, oriented x 3, equal unlabored respirations, skin warm/dry/pink. Patient PO challenging on Diet lemon venetie ira soda Patient states symptoms have improved. Vital Signs: 16:33 BP 121 / 69; Pulse 118; Resp 19; Temp 98.3(TE); Pulse Ox 100% on R/A; Weight 104.33 kg; la1 Height 5 ft. 5 in. (165.10 cm); Pain 8/10; 17:58 BP 116 / 65; Pulse 112; Resp 22; Pulse Ox 97% on R/A; aj 18:50 BP 111 / 66; Pulse 108; Resp 18; Pulse Ox 99% on R/A; aj 20:43 BP 118 / 64; Pulse 96; Resp 18; Pulse Ox 99% on R/A; aj 16:33 Body Mass Index 38.27 (104.33 kg, 165.10 cm) la1 ED Course: 16:27 Patient arrived in ED. mr 16:27 Mayank Moraes MD is Private Physician. mr 16:33 Triage completed. la1 16:34 Arm band placed on left wrist. la1 16:43 Masoud Ventura MD is Attending Physician. gs 17:02 EKG done, by a&p technician. reviewed by Masoud Ventura MD. dt2 17:34 Doreen Robert, MINERVA is Primary Nurse. aj 17:58 Patient has correct armband on for positive identification. Placed in gown. Bed in low aj position. stamping die maker on. Pulse ox on. NIBP on. 17:58 Inserted saline lock: 22 gauge in right wrist, using aseptic technique. Blood collected.aj 18:25 XRAY Chest (1 view) In Process Unspecified. EDMS 19:10 Ultrasound completed. Patient tolerated well. sg3 19:11 US Abdomen Limited In Process Unspecified. EDMS 19:45 Dilan Clark PA is PHCP. cp 20:36 Sharan Mcleod MD is Referral Physician. cp 20:45 No provider procedures requiring assistance completed. aj 20:59 IV discontinued, intact, bleeding controlled, No redness/swelling at site. Pressure aj dressing applied. Administered Medications: 17:49 Drug: NS 0.9% 1000 ml Route: IV; Rate: 1 bolus; Site: right wrist; aj 18:30 Follow up: Response: No adverse reaction; IV Status: Completed infusion; IV Intake: aj 1000ml 17:49 Drug: Zofran 4 mg Route: IVP; Site: right wrist; aj 18:18 Follow up: Response: Nausea is decreased aj 19:31 Drug: GI Cocktail without - (Maalox Suspension 30 ml, Lidocaine Liquid 2 % 15 aj ml) Route: PO; 20:36 Follow up: Response: No adverse reaction aj 19:58 Drug: NS 0.9% 1000 ml Route: IV; Rate: 1 bolus; Site: right wrist; aj 21:01 Follow up: Response: No adverse reaction; IV Status: Order to discontinue infusion; IV aj Intake: 500ml 19:58 Drug: Pepcid 20 mg Route: IVP; Site: right wrist; aj 20:36 Follow up: Response: No adverse reaction aj 20:35 Drug: Zofran 4 mg Route: IVP; Site: right wrist; aj 21:01 Follow up: Response: No adverse reaction; Nausea is decreased aj 20:36 Drug: ProTONIX 40 mg Route: IVP; Site: right wrist; aj 21:01 Follow up: Response: No adverse reaction aj Intake: 18:30 IV: 1000ml; Total: 1000ml. aj 21:01 IV: 500ml; Total: 1500ml. aj Outcome: 20:37 Discharge ordered by . cp 20:59 Discharged to home ambulatory. aj 20:59 Condition: good 20:59 Discharge instructions given to patient, Instructed on discharge instructions, follow up and referral plans. medication usage, Demonstrated understanding of instructions, follow-up care, medications, Prescriptions given X 3. 21:08 Patient left the ED. aj Signatures: Dispatcher [employer] EDHI Doreen Robert RN RN aj Rivera, Maria mr Attema, Lee, RN RN la1 Dilan Clark PA PA cp Starr, Gregory, MD MD Yohana Spencer sg3 Ellen Cabrera dt2 Corrections: (The following items were deleted from the chart) 19:58 19:58 NS 0.9% 1000 ml IV at 1 bolus in right antecubital aj aj
--- NOTE | 2018-03-12 20:37 | EDPHYS ---
Physician Documentation [facility] Name: Karen Lyons Age: 57 yrs Sex: Female : 1960 Arrival Date: 03/12/2018 Time: 16:27 Bed 23 Private MD: Mayank Villagomez ED Physician Masoud Ventura HPI: 03/13 07:45 This 57 yrs old Black Female presents to ER via Ambulatory with complaints of Abdominal gs Pain, Vomiting. 07:45 The patient presents to the emergency department with nausea, vomiting. Onset: The gs symptoms/episode began/occurred yesterday. Possible causes: possible restart of dm meds has happened before. The symptoms are aggravated by food , The symptoms are alleviated by nothing. Associated signs and symptoms: Pertinent negatives: diarrhea. Severity of symptoms: At their worst the symptoms were severe in the emergency department the symptoms are unchanged. The patient has experienced similar episodes in the past, a few times. radiated up in chest is burning. OPERATIONS LEAD: 03/12 21:00 LMP N/A - Hysterectomy aj Historical: - Allergies: 16:33 Latex, Natural Rubber; la1 - Home Meds: 21:00 Glipizide Oral [Active]; Januvia Oral [Active]; Metformin Oral [Active]; aj - PMHx: 16:33 Cancer, Breast; Diabetes - NIDDM; la1 - PSHx: 21:00 Left Breast Sx; Hysterectomy; aj - Immunization history:: Adult Immunizations up to date. - Social history:: Smoking status: Patient/guardian denies using tobacco. - Ebola Screening: : No symptoms or risks identified at this time. ROS: 03/13 07:45 All other systems are negative. gs Exam: 07:45 Head/Face: Normocephalic, atraumatic. Eyes: Pupils equal round and reactive to light, gs extra-ocular motions intact. Lids and lashes normal. Conjunctiva and sclera are non-icteric and not injected. Cornea within normal limits. Periorbital areas with no swelling, redness, or edema. ENT: Nares patent. No nasal discharge, no septal abnormalities noted. Tympanic membranes are normal and external auditory canals are clear. Oropharynx with no redness, swelling, or masses, exudates, or evidence of obstruction, uvula midline. Mucous membranes moist. Neck: Trachea midline, no thyromegaly or masses palpated, and no cervical lymphadenopathy. Supple, full range of motion without nuchal rigidity, or vertebral point tenderness. No Meningismus. Chest/axilla: Normal chest wall appearance and motion. Nontender with no deformity. No lesions are appreciated. Cardiovascular: Regular rate and rhythm with a normal S1 and S2. No gallops, murmurs, or rubs. Normal PMI, no JVD. No pulse deficits. Respiratory: Lungs have equal breath sounds bilaterally, clear to auscultation and percussion. No rales, rhonchi or wheezes noted. No increased work of breathing, no retractions or nasal flaring. Back: No spinal tenderness. No costovertebral tenderness. Full range of motion. Skin: Warm, dry with normal turgor. Normal color with no rashes, no lesions, and no evidence of cellulitis. MS/ Extremity: Pulses equal, no cyanosis. Neurovascular intact. Full, normal range of motion. Neuro: Awake and alert, GCS 15, oriented to person, place, time, and situation. Cranial nerves II-XII grossly intact. Motor strength 5/5 in all extremities. Sensory grossly intact. Cerebellar exam normal. Normal gait. 07:45 Constitutional: The patient appears alert, awake. 07:45 Abdomen/GI: Palpation: moderate abdominal tenderness, in the epigastric area and right upper quadrant, rebound tenderness, is not appreciated. 07:45 ECG was reviewed by the Attending Physician. Vital Signs: 03/12 16:33 BP 121 / 69; Pulse 118; Resp 19; Temp 98.3(TE); Pulse Ox 100% on R/A; Weight 104.33 kg; la1 Height 5 ft. 5 in. (165.10 cm); Pain 8/10; 17:58 BP 116 / 65; Pulse 112; Resp 22; Pulse Ox 97% on R/A; aj 18:50 BP 111 / 66; Pulse 108; Resp 18; Pulse Ox 99% on R/A; aj 20:43 BP 118 / 64; Pulse 96; Resp 18; Pulse Ox 99% on R/A; aj 16:33 Body Mass Index 38.27 (104.33 kg, 165.10 cm) la1 MDM: 17:32 Patient medically screened. 03/13 07:45 Differential diagnosis: Nonspecific abd pain, cholecystitis, pancreatitis. Data reviewed: vital signs, nurses notes. Response to treatment: the patient's symptoms have markedly improved after treatment, and as a result, I will discharge patient. 07:54 ED course: notified pt of anemia will follow with dr villagomez.. gs 03/12 17:34 Order name: Basic Metabolic Panel; Complete Time: 19:12 03/12 17:34 Order name: CBC with Diff; Complete Time: 19:12 03/12 20:14 Interpretation: Normal except: RBC 3.16; HGB 8.5; HCT 26.1. cp 03/12 17:34 Order name: Ckmb; Complete Time: 19:12 03/12 17:34 Order name: CPK; Complete Time: 19:12 03/12 17:34 Order name: LFT's; Complete Time: 19:12 03/12 17:34 Order name: Magnesium; Complete Time: 19:12 03/12 17:34 Order name: NT PRO-BNP; Complete Time: 19:12 03/12 17:34 Order name: PT-INR; Complete Time: 19:12 03/12 17:34 Order name: Ptt, Activated; Complete Time: 19:12 03/12 17:34 Order name: Troponin (emerg Dept Use Only); Complete Time: 19:12 03/12 17:34 Order name: XRAY Chest (1 view); Complete Time: 19:12 03/12 18:00 Order name: Lipase; Complete Time: 19:12 [facility] 03/12 17:34 Order name: Cardiac monitoring; Complete Time: 17:54 03/12 17:34 Order name: EKG - Nurse/Tech; Complete Time: 17:54 03/12 17:34 Order name: IV Saline Lock; Complete Time: 17:54 03/12 17:34 Order name: Labs collected and sent; Complete Time: 17:54 03/12 17:34 Order name: O2 Per Protocol; Complete Time: 17:54 03/12 17:34 Order name: O2 Sat Monitoring; Complete Time: 17:54 03/12 17:34 Order name: Urine Dipstick-Ancillary (obtain specimen); Complete Time: 21:02 03/12 18:35 Order name: US Abdomen Limited; Complete Time: 20:13 03/12 20:14 Order name: PO challenge; Complete Time: 20:45 cp EC:45 Rate is 109 beats/min. Rhythm is regular. MI interval is normal. QRS interval is gs normal. T waves are Flattened. Clinical impression: NSR w/ Non-specific ST/T Changes. Interpreted by me. Administered Medications: 03/12 17:49 Drug: NS 0.9% 1000 ml Route: IV; Rate: 1 bolus; Site: right wrist; aj 18:30 Follow up: Response: No adverse reaction; IV Status: Completed infusion; IV Intake: aj 1000ml 17:49 Drug: Zofran 4 mg Route: IVP; Site: right wrist; aj 18:18 Follow up: Response: Nausea is decreased aj 19:31 Drug: GI Cocktail without - (Maalox Suspension 30 ml, Lidocaine Liquid 2 % 15 aj ml) Route: PO; 20:36 Follow up: Response: No adverse reaction aj 19:58 Drug: NS 0.9% 1000 ml Route: IV; Rate: 1 bolus; Site: right wrist; aj 21:01 Follow up: Response: No adverse reaction; IV Status: Order to discontinue infusion; IV aj Intake: 500ml 19:58 Drug: Pepcid 20 mg Route: IVP; Site: right wrist; aj 20:36 Follow up: Response: No adverse reaction aj 20:35 Drug: Zofran 4 mg Route: IVP; Site: right wrist; aj 21:01 Follow up: Response: No adverse reaction; Nausea is decreased aj 20:36 Drug: ProTONIX 40 mg Route: IVP; Site: right wrist; aj 21:01 Follow up: Response: No adverse reaction Disposition: 03/13 08:00 Chart complete. cp 15:57 Co-signature as Attending Physician, Masoud Ventura MD. Disposition: 03/12/18 20:37 Discharged to Home. Impression: Nausea and vomiting, Epigastric abdominal tenderness. - Condition is Stable. - Discharge Instructions: Gastritis, Adult, Nausea and Vomiting, Adult. - Prescriptions for Carafate 1 gram Oral Tablet - take 1 tablet by ORAL route 4 times per day take on an empty stomach, beginning on waking and last dose at bedtime. dissolve tablet in small amount warm water prior to ingestion; 100 tablet. Protonix 40 mg Oral Tablet - take 1 tablet by ORAL route once daily; 30 tablet. Zofran 4 mg Oral Tablet - take 1 tablet by ORAL route every 12 hours As needed; 20 tablet. - Medication Reconciliation Form, Thank You Letter, Antibiotic Education, Prescription Opioid Use form. - Follow up: Sharan Mcleod MD; When: 2 - 3 days; Reason: Recheck today's complaints. - Problem is new. - Symptoms have improved. Signatures: Dispatcher [employer] EDMA Doreen Robert RN RN aj Curly Rivera RN RN la1 Dilan Clark PA PA cp Masoud Ventura MD MD gs Corrections: (The following items were deleted from the chart) 03/12 17:59 17:37 LIPASE+C.LAB.BRZ ordered. EDMA EDMS 19:32 19:31 Giardia Antigen Screen+MR.LAB.BRZ ordered. [facility] EDMS 21:08 20:37 03/12/2018 20:37 Discharged to Home. Impression: Nausea and vomiting; Epigastric aj abdominal tenderness. Condition is Stable. Forms are Medication Reconciliation Form, Thank You Letter, Antibiotic Education, Prescription Opioid Use. Follow up: Sharan Mcleod; When: 2 - 3 days; Reason: Recheck today's complaints. Problem is new. Symptoms have improved. cp
[2018-03-12 22:23] VITALS: TEMP 98.3
[2018-03-12 22:26] VITALS: O2SAT 99
[2018-03-12 22:27] VITALS: BP 118/64
--- NOTE | 2018-03-14 07:49 | EKG ---
Test Date: 2018-03-12 Test Time: 16:56:02 Tree Surgeon: JAY MEASUREMENT RESULTS: Intervals: Rate: 109 NV: 152 QRSD: 72 QT: 302 QTc: 406 [place]: P: 69 NV: 152 QRS: 29 T: 36 INTERPRETIVE STATEMENTS: Sinus tachycardia Nonspecific T wave abnormality Abnormal ECG Compared to ECG 12/08/2017 15:32:55 T-wave abnormality now present Sinus rhythm no longer present Electronically Signed On 03-14-18 07:45:44 CDT by Will Lester
== END 2018-03-12 21:08 | disposition home or self-care (01) ==
LOC: ER 16:24
DX: R10.816 Epigastric abdominal tenderness (principal); E11.9 Type 2 diabetes mellitus without complications; Z85.3 Personal history of malignant neoplasm of breast; Z91.040 Latex allergy status; Z91.048 Other nonmedicinal substance allergy status
CPT/HCPCS: 36415; 71045; 76705; 80048; 80076; 82550; 82553; 83690; 83735; 83880; 84484; 85025; 85610; 85730; 93005; 96361; 96374; 96375; 99285; C9113; J2405; J7030

== ENCOUNTER 2018-08-11 22:53 | Emergency (ER) | payer OTHER ==
[2018-08-12] MEDS ORDERED: INSULIN -REGULAR HUMAN 50 UNIT/0.5 ML ML ONE ×2 (00:59→01:07)
[2018-08-12] MEDS ORDERED: NA CHLORIDE 0.9% 1,000 ML ONE (00:59)
[2018-08-12 01:11] LABS: Potassium 3.7 mmol/L (3.5-5.1)
--- NOTE | 2018-08-12 01:26 | ER ---
Nurse's Notes [facility] Name: Karen Lyons Age: 58 yrs Sex: Female : 1960 Arrival Date: 08/11/2018 Time: 22:56 Bed 15 Private MD: Mila Moraes C Diagnosis: Hyperglycemia, unspecified;Left flank pain Presentation: 08/11 23:01 Presenting complaint: Patient states: I have had a pain in my back that started this jb4 morning and a pain in my left leg that has been getting worse for the past 3 days. 23:01 Transition of care: patient was not received from another setting of care. Onset of jb4 symptoms was August 08, 2018. Risk Assessment: Do you want to hurt yourself or someone else? Patient reports no desire to harm self or others. Initial Sepsis Screen: Does the patient meet any 2 criteria? No. Patient's initial sepsis screen is negative. Does the patient have a suspected source of infection? No. Patient's initial sepsis screen is negative. Care prior to arrival: None. 23:01 Method Of Arrival: Ambulatory jb4 23:01 Acuity: TONYA 3 jb4 Triage Assessment: 23:01 General: Appears in no apparent distress. uncomfortable, Behavior is calm, cooperative, jb4 appropriate for age. Pain: Complains of pain in left low back and medial aspect of left thigh Pain does not radiate. Pain currently is 8 out of 10 on a pain scale. Quality of pain is described as stabbing, Pain began 2-3 days ago. Is continuous. EENT: No signs and/or symptoms were reported regarding the EENT system. Neuro: Level of Consciousness is awake, alert, obeys commands, Oriented to person, place, time, situation. Cardiovascular: Patient's skin is warm and dry. Respiratory: Airway is patent Respiratory effort is even, unlabored, Respiratory pattern is regular, symmetrical. GI: No signs and/or symptoms were reported involving the gastrointestinal system. : Reports " my urine has been concentrated lately". Derm: Skin is intact, Skin is dry, Skin is normal, Skin temperature is warm. Musculoskeletal: Circulation, motion, and sensation intact. Historical: - Allergies: 23: Latex, Natural Rubber; jb4 - Home Meds: 23:01 metformin 850 mg oral tab [Active]; Toujeo SoloStar subcutaneous 50 units subcutaneous jb4 [Active]; - PMHx: 23:01 Cancer, Breast; Diabetes - NIDDM; jb4 - PSHx: 23:01 Hysterectomy; left breast lumpectomy; right arm surgery; jb4 - Immunization history:: Adult Immunizations up to date, Flu vaccine is up to date. - Social history:: Smoking status: Patient/guardian denies using tobacco, Patient/guardian denies using alcohol. - Ebola Screening: : No symptoms or risks identified at this time. Screenin: Abuse screen: Denies threats or abuse. Nutritional screening: No deficits noted. jb4 Tuberculosis screening: No symptoms or risk factors identified. Fall Risk None identified. Assessment: 23:01 General: See triage assessment.. Neuro: Level of Consciousness is awake, alert, obeys jb4 commands, Oriented to person, place, time, situation, Moves all extremities. Gait is unsteady, Speech is slurred, Facial symmetry appears normal, Pupils are PERRLA. 08/12 00:10 Reassessment: Patient appears in no apparent distress at this time. Patient and/or jb4 family updated on plan of care and expected duration. Pain level reassessed. Patient is alert, oriented x 3, equal unlabored respirations, skin warm/dry/pink. Pt is back from CT. 01:00 Reassessment: Patient appears in no apparent distress at this time. Patient and/or jb4 family updated on plan of care and expected duration. Pain level reassessed. Patient is alert, oriented x 3, equal unlabored respirations, skin warm/dry/pink. Pt is resting in bed with family at the bedside. 01:48 Reassessment: Patient appears in no apparent distress at this time. Patient and/or jb4 family updated on plan of care and expected duration. Pain level reassessed. Patient is alert, oriented x 3, equal unlabored respirations, skin warm/dry/pink. Discussed D/c, F/u with pt, denies questions or concerns. Vital Signs: 08/11 23:01 BP 110 / 49; Pulse 80; Resp 18; Temp 97.6(O); Pulse Ox 100% on R/A; Weight 104.33 kg jb4 (R); Height 5 ft. 5 in. (165.10 cm) (R); Pain 8/10; 08/12 00:10 BP 112 / 53; Pulse 80; Resp 16; Pulse Ox 99% on R/A; jb4 01:00 BP 108 / 59; Pulse 79; Resp 16; Pulse Ox 98% on R/A; jb4 01:45 BP 108 / 54; Pulse 79; Resp 16; Pulse Ox 99% on R/A; jb4 08/11 23:01 Body Mass Index 38.27 (104.33 kg, 165.10 cm) jb4 ED Course: 08/11 22:56 Patient arrived in ED. es 22:57 Mila Moraes MD is Private Physician. es 23:01 Arm band placed on left wrist. jb4 23:01 Patient has correct armband on for positive identification. Bed in low position. Call jb4 light in reach. Side rails up X 1. Pulse ox on. NIBP on. 23:05 Stephanie Pablo FNP-C is PHCP. kb 23:05 Dilan Mansfield MD is Attending Physician. kb 23:16 Ian Salgado, MINERVA is Primary Nurse. jb4 23:18 Triage completed. jb4 08/12 00:14 CT completed. Patient tolerated procedure well. Patient moved to CT via wheelchair. eh Patient moved back from CT. 00:28 Stone Protocol In Process Unspecified. EDMS 00:35 Initial lab(s) drawn, by me, sent to lab. Inserted saline lock: 20 gauge in right jb4 antecubital area, using aseptic technique. Blood collected. 01:50 No provider procedures requiring assistance completed. IV discontinued, intact, jb4 bleeding controlled. Administered Medications: 01:01 Drug: Insulin Regular Human 5 units {Co-Signature: aa1 (Tammy Hawley RN).} Route: Sub-Q; jb4 Site: right lower abdomen; 01:41 Follow up: Response: No adverse reaction jb4 01:02 Drug: NS 0.9% 1000 ml Route: IV; Rate: 1000 ml; Site: right antecubital; jb4 01:40 Follow up: Response: No adverse reaction; IV Status: Completed infusion jb4 Point of Care Testing: Blood Glucose: 00:25 Blood Glucose: 300 mg/dL; jb4 01:30 Blood Glucose: 286 mg/dL; jb4 Ranges: Outcome: 01:26 Discharge ordered by . kb 01:50 Discharged to home ambulatory, with significant other. jb4 01:50 Condition: stable 01:50 Discharge instructions given to patient, significant other, Instructed on discharge instructions, follow up and referral plans. Demonstrated understanding of instructions, follow-up care. 01:51 Patient left the ED. jb4 Signatures: Dispatcher [employer] Stephanie Quiroz, MANAGER STUDENT SERVICES-C MANAGER STUDENT SERVICES-Ckb Lata Castellanos Ervin eh Bryson, James, RN RN jb4 Tammy Hawley RN aa1 Corrections: (The following items were deleted from the chart) 08/11 23:29 23:01 Patient has correct armband on for positive identification. Call light in reach. jb4 Side rails up X 1. jb4
--- NOTE | 2018-08-12 01:26 | EDPHYS ---
Physician Documentation [facility] Name: Karen Lyons Age: 58 yrs Sex: Female : 1960 Arrival Date: 08/11/2018 Time: 22:56 Bed 15 Private MD: Mila Moraes C ED Physician Dilan Mansfield HPI: 08/12 00:40 This 58 yrs old Black Female presents to ER via Ambulatory with complaints of Back kb Pain, Thigh Pain. 00:40 The patient complains of pain in the left flank. The pain does not radiate. Onset: The kb symptoms/episode began/occurred this morning. Modifying factors: The symptoms are alleviated by nothing. the symptoms are aggravated by palpation/percussion, urination. Associated signs and symptoms: The patient has no apparent associated signs or symptoms. Severity of pain: At its worst the pain was moderate in the emergency department the pain is unchanged. The patient has not experienced similar symptoms in the past. The patient has not recently seen a physician. Pt reports left flank pain that started this morning. Also reports left posterior thigh pain that started a few days ago. "I want to make sure it isn't cellulitis or an abscess starting up.". Historical: - Allergies: 08/11 23:01 Latex, Natural Rubber; jb4 - Home Meds: 23:01 metformin 850 mg oral tab [Active]; Toujeo SoloStar subcutaneous 50 units subcutaneous jb4 [Active]; - PMHx: 23:01 Cancer, Breast; Diabetes - NIDDM; jb4 - PSHx: 23:01 Hysterectomy; left breast lumpectomy; right arm surgery; jb4 - Immunization history:: Adult Immunizations up to date, Flu vaccine is up to date. - Social history:: Smoking status: Patient/guardian denies using tobacco, Patient/guardian denies using alcohol. - Ebola Screening: : No symptoms or risks identified at this time. ROS: 08/12 00:35 Constitutional: Negative for fever, chills, and weight loss, ENT: Negative for injury, kb pain, and discharge, Neck: Negative for injury, pain, and swelling, Cardiovascular: Negative for chest pain, palpitations, and edema, Respiratory: Negative for shortness of breath, cough, wheezing, and pleuritic chest pain, Abdomen/GI: Negative for abdominal pain, nausea, vomiting, diarrhea, and constipation, : Negative for injury, bleeding, discharge, and swelling, Skin: Negative for injury, rash, and discoloration, Neuro: Negative for headache, weakness, numbness, tingling, and seizure. Back: Positive for flank pain, on the left, Negative for injury or acute deformity, decreased range of motion, pain at rest, pain with movement, radiated pain. MS/extremity: Positive for injury or acute deformity, pain, swelling, tenderness, of the left hamstring. Exam: 00:38 Constitutional: This is a well developed, well nourished patient who is awake, alert, kb and in no acute distress. Head/Face: Normocephalic, atraumatic. Chest/axilla: Normal chest wall appearance and motion. Nontender with no deformity. No lesions are appreciated. Cardiovascular: Regular rate and rhythm with a normal S1 and S2. No gallops, murmurs, or rubs. Normal PMI, no JVD. No pulse deficits. Respiratory: Lungs have equal breath sounds bilaterally, clear to auscultation and percussion. No rales, rhonchi or wheezes noted. No increased work of breathing, no retractions or nasal flaring. Abdomen/GI: Soft, non-tender, with normal bowel sounds. No distension or tympany. No guarding or rebound. No evidence of tenderness throughout. Skin: Warm, dry with normal turgor. Normal color with no rashes, no lesions, and no evidence of cellulitis. MS/ Extremity: Pulses equal, no cyanosis. Neurovascular intact. Full, normal range of motion. Neuro: Awake and alert, GCS 15, oriented to person, place, time, and situation. Cranial nerves II-XII grossly intact. Motor strength 5/5 in all extremities. Sensory grossly intact. Cerebellar exam normal. Normal gait. 00:38 Back: CVA tenderness, that is mild, is noted on the left. Vital Signs: 08/11 23:01 BP 110 / 49; Pulse 80; Resp 18; Temp 97.6(O); Pulse Ox 100% on R/A; Weight 104.33 kg jb4 (R); Height 5 ft. 5 in. (165.10 cm) (R); Pain 8/10; 08/12 00:10 BP 112 / 53; Pulse 80; Resp 16; Pulse Ox 99% on R/A; jb4 01:00 BP 108 / 59; Pulse 79; Resp 16; Pulse Ox 98% on R/A; jb4 01:45 BP 108 / 54; Pulse 79; Resp 16; Pulse Ox 99% on R/A; jb4 08/11 23:01 Body Mass Index 38.27 (104.33 kg, 165.10 cm) jb4 MDM: 08/11 23:05 Patient medically screened. kb 08/12 00:39 Data reviewed: vital signs, nurses notes. Data interpreted: Pulse oximetry: on room air kb is 99 %. Interpretation: normal. 01:20 Counseling: I had a detailed discussion with the patient and/or guardian regarding: the kb historical points, exam findings, and any diagnostic results supporting the discharge/admit diagnosis, lab results, radiology results, the need for outpatient follow up, a family practitioner, to return to the emergency department if symptoms worsen or persist or if there are any questions or concerns that arise at home. 08/11 23:40 Order name: Urine Dipstick--Ancillary (enter results) [facility] 08/12 00:28 Order name: Stone Protocol [facility] 08/12 00:51 Order name: Basic Metabolic Panel; Complete Time: 01:12 [facility] 08/11 23:25 Order name: Urine Dipstick-Ancillary (obtain specimen); Complete Time: 23:44 kb 08/12 00:31 Order name: IV Start; Complete Time: 00:44 kb 08/12 01:27 Order name: Blood Glucose Level; Complete Time: 01:41 kb Administered Medications: 01:01 Drug: Insulin Regular Human 5 units {Co-Signature: aa1 (Tammy Hawley RN).} Route: Sub-Q; jb4 Site: right lower abdomen; 01:41 Follow up: Response: No adverse reaction jb4 01:02 Drug: NS 0.9% 1000 ml Route: IV; Rate: 1000 ml; Site: right antecubital; jb4 01:40 Follow up: Response: No adverse reaction; IV Status: Completed infusion jb4 Point of Care Testing: Blood Glucose: 00:25 Blood Glucose: 300 mg/dL; jb4 01:30 Blood Glucose: 286 mg/dL; jb4 Ranges: Critical Glucose Levels:Adult <50 mg/dl or >400 mg/dl <40 mg/dl or >180 mg/dl Disposition: 06:30 Co-signature as Attending Physician, Dilan Mansfield MD I agree with the assessment and corazon plan of care. Disposition: 08/12/18 01:26 Discharged to Home. Impression: Hyperglycemia, unspecified, Left flank pain. - Condition is Stable. - Discharge Instructions: Hyperglycemia, [id number], Flank Pain, [id number]. - Medication Reconciliation Form, Thank You Letter, Antibiotic Education, Prescription Opioid Use form. - Follow up: Emergency Department; When: As needed; Reason: Worsening of condition. Follow up: Private Physician; When: 2 - 3 days; Reason: Recheck today's complaints, Continuance of care, Re-evaluation by your physician. Signatures: Dispatcher [employer] EDStephanie Dacosta, DEN-C DEN-Dilan Martinez MD MD cha Bryson, James RN RN jb4 Tammy Hawley RN aa1 Corrections: (The following items were deleted from the chart) 01:51 01:26 08/12/2018 01:26 Discharged to Home. Impression: Hyperglycemia, unspecified; Left jb4 flank pain. Condition is Stable. Forms are Medication Reconciliation Form, Thank You Letter, Antibiotic Education, Prescription Opioid Use. Follow up: Emergency Department; When: As needed; Reason: Worsening of condition. Follow up: Private Physician; When: 2 - 3 days; Reason: Recheck today's complaints, Continuance of care, Re-evaluation by your physician. kb
[2018-08-12 02:19] VITALS: TEMP 97.6
[2018-08-12 02:24] VITALS: BP 108/54; O2SAT 99
[2018-08-12 07:23] LABS: Urine Blood TRACE (NEG); Urine Glucose 1+ (NEG); Urine Protein NEGATIVE (NEG)
--- NOTE | 2018-08-12 07:54 | RAD REPORT ---
EXAM DESCRIPTION: CT - Stone Protocol - 08/12/2018 3:35 am CLINICAL HISTORY: Left-sided flank pain, abdominal pain, prior hysterectomy A preliminary report was provided at the time of the study and reviewed prior to final report. COMPARISON: CT imaging February 2011 TECHNIQUE: Axial 5 mm thick images were obtained without oral or IV contrast. The [id number] span s the entirety of the system partially obscuring uppermost abdomen and lung bases. All CT scans are performed using dose optimization technique as appropriate and may include automated exposure control or mA/KV adjustment according to patient size. FINDINGS: No hydronephrosis is present and no obstructing ureteral calculi. In the anterior lower po le left kidney there is a 2.6 centimeter homogeneous low-density mass. In the inferior most left lowe r pole there is a 20 millimeter round low-attenuation mass. No associated fat or calcification. Both masses were present but smaller on the 2010 study. Both show attenuation values compatible with cysts . Urinary bladder is fully contracted limiting assessment. No bladder calculi seen. Uterus is absent. Ovaries are absent or atrophic. No adnexal abnormality. No significant adrenal finding. Imaged portions of the liver, spleen and pancreas show no suspicious findings on non-contrast imaging . Small accessory splenic nodule is present. Gallbladder is contracted. No biliary tree dilatation. No dilated bowel loops or bowel wall thickening. No mass lesion identifiable. Patient has a few small mesenteric lymph nodes present. No mass or bulky lymphadenopathy. A small fat only hernia is present at the umbilicus not clearly dif ferent from 2011. No free air, free fluid or inflammatory stranding. No significant bony abnormality. IMPRESSION: No hydronephrosis, obstructing calculus or acute finding. Isodense masses and pyelonephritis are not excluded on stone protocol technique. Lower pole left renal cysts are present but have increased in size since 2010. The remainder the study shows no emergent finding. A few small mesenteric lymph nodes are present.
== END 2018-08-12 01:51 | disposition home or self-care (01) ==
LOC: ER 22:53
DX: E11.65 Type 2 diabetes mellitus with hyperglycemia (principal); M54.9 Dorsalgia, unspecified; Z79.4 Long term (current) use of insulin; Z85.3 Personal history of malignant neoplasm of breast
CPT/HCPCS: 36415; 74176; 76377; 80048; 81003; 82962; J7030

== ENCOUNTER 2018-11-03 10:13 | Emergency (ER) | payer OTHER ==
--- NOTE | 2018-11-03 12:01 | RAD REPORT ---
EXAM DESCRIPTION: RAD - Chest Single View - 11/03/2018 11:47 am CLINICAL HISTORY: Cough, chest pain, shortness of breath COMPARISON: February 2018 TECHNIQUE: AP portable chest image was obtained 1142 hours . FINDINGS: Lungs are clear. Heart and vasculature are normal. No measurable pleural effusion and no p neumothorax. No acute bony abnormality seen. No acute aortic findings suspected. IMPRESSION: No acute cardiopulmonary process. No significant interval change.
[2018-11-03] MEDS ORDERED: ALBUTEROL 2.5 MG/3 ML NEB SOL ONE (12:11)
[2018-11-03] MEDS ORDERED: HYDROCODONE/CHLORPHEN 5 ML/OSYR ONE (12:11)
[2018-11-03] MEDS ORDERED: IPRATROPIUM BROM 0.5MG/2.5ML ONE (12:11)
[2018-11-03] MEDS ORDERED: NA CHLORIDE 0.9% 1,000 ML ONE (12:12)
[2018-11-03 12:20] LABS: Absolute Lymphocytes (CBC) 2.5 K/uL (0.7-4.9); Absolute Monocytes 0.7 K/uL (0.1-1.3); Absolute Neutrophil 6.3 K/uL (1.8-8.0); Basophils % 0.7 % (0-1.3); Eosinophils % 2.8 % (0-4.4); Hematocrit 42.6 % (36.0-45.0); Lymphocytes % 25.4 % (15.3-44.8); MPV 9.1 fL (7.6-11.3); Monocytes % 6.8 % (3.3-12.3); RBC Red Blood Cell Count 5.21 M/uL (3.86-4.86)
[2018-11-03 12:37] LABS: ALT/SGPT 21 U/L (12-78); AST/SGOT 14 U/L (15-37); Albumin 3.5 g/dL (3.4-5.0); Alkaline Phosphatase 82 U/L (45-117); BUN Blood Urea Nitrogen 9 mg/dL (7-18); Bicarbonate 27 mmol/L (21-32); Bilirubin Direct < 0.1 mg/dL (0-0.2); Bilirubin Total 0.3 mg/dL (0.2-1.0); Glucose Level 151 mg/dL (74-106); Magnesium 2.2 mg/dL (1.8-2.4); NT PRO-BNP 18 pg/mL (<125); Potassium 3.7 mmol/L (3.5-5.1); Protein, Total 7.7 g/dL (6.4-8.2); Sodium Level 139 mmol/L (136-145); Troponin (Emerg Dept Use Only) < 0.02 ng/mL (0.0-0.045)
[2018-11-03 12:40] LABS: Protime INR 0.99
--- NOTE | 2018-11-03 13:27 | ER ---
Nurse's Notes [facility] Name: Karen Lyons Age: 58 yrs Sex: Female : 1960 Arrival Date: 11/03/2018 Time: 10:15 Bed 5 Private MD: Mila Moraes C Diagnosis: Acute bronchitis, unspecified Presentation: 11/03 10:23 Presenting complaint: Patient states: i feel like its pneumonia chest pain, i feel tw2 short of breath, this is day 4, i am coughing up yellow thick stuff, trying otc stuff but nothing is working, low grade temp. Transition of care: patient was not received from another setting of care. Onset of symptoms was November 03, 2018. Risk Assessment: Do you want to hurt yourself or someone else? Patient reports no desire to harm self or others. Initial Sepsis Screen: Does the patient meet any 2 criteria? No. Patient's initial sepsis screen is negative. Does the patient have a suspected source of infection? No. Patient's initial sepsis screen is negative. Care prior to arrival: None. 10:23 Method Of Arrival: Ambulatory tw2 10:23 Acuity: TONYA 3 tw2 Triage Assessment: 10:25 General: Appears in no apparent distress. well groomed, Behavior is calm, cooperative, tw2 appropriate for age. Pain: Complains of pain in pain with deep breathing. Cardiovascular: Reports shortness of breath. Respiratory: Reports cough that is productive, pain with respiration. GI: Reports diarrhea. Historical: - Allergies: 10:27 Latex, Natural Rubber; tw2 - Home Meds: 10:27 Glipizide Oral [Active]; Januvia Oral [Active]; metformin 850 mg Oral tab [Active]; tw2 Toujeo SoloStar 50 units subcutaneous [Active]; - PMHx: 10:27 Cancer, Breast; Diabetes - NIDDM; tw2 - PSHx: 10:27 Hysterectomy; left breast lumpectomy; right arm surgery; tw2 - Immunization history:: Adult Immunizations. - Social history:: Smoking status: . - Ebola Screening: : Patient denies travel to an Ebola-affected area in the 21 days before illness onset. Screenin:13 Abuse screen: Denies threats or abuse. Denies injuries from another. Nutritional bp screening: No deficits noted. Tuberculosis screening: No symptoms or risk factors identified. Fall Risk None identified. Assessment: 10:30 General: Appears in no apparent distress. uncomfortable, obese, Behavior is calm, bp cooperative, appropriate for age. Pain: Complains of pain in chest Pain does not radiate. Pain began gradually. Neuro: Level of Consciousness is awake, alert, obeys commands, Oriented to person, place, time, situation, Appropriate for age. Cardiovascular: Rhythm is sinus rhythm. Respiratory: Reports cough that is Airway is patent Respiratory effort is even, unlabored, Respiratory pattern is regular, symmetrical. GI: No signs and/or symptoms were reported involving the gastrointestinal system. : No signs and/or symptoms were reported regarding the genitourinary system. EENT: Reports nasal congestion. Derm: No deficits noted. Musculoskeletal: Circulation, motion, and sensation intact. Range of motion: intact in all extremities. 12:00 Reassessment: ALL CURRENT ORDERS COMPLETED, RESULTS PENDING, NEB IN PROCESS. bp 13:26 Reassessment: VS STABLE ON MONITOR, RESULTS PENDING FOR DISPO. bp 13:42 Reassessment: PT D/C HOME AMBULATORY, DX WITH BRONCHITIS. bp Vital Signs: 10:24 BP 142 / 88; Pulse 83; Resp 17; Temp 97.2(TE); Pulse Ox 100% on R/A; Weight 103.42 kg tw2 (R); Height 5 ft. 5 in. (165.10 cm) (R); Pain 8/10; 12:20 BP 110 / 61; Pulse 79; Resp 14; Pulse Ox 100% ; bp 13:25 BP 114 / 56; Pulse 81; Resp 16; Pulse Ox 100% ; bp 10:24 Body Mass Index 37.94 (103.42 kg, 165.10 cm) tw2 10:24 pain when i take a deep breath tw2 ED Course: 10:15 Patient arrived in ED. mr 10:16 Mila Moraes MD is Private Physician. mr 10:24 Triage completed. tw2 10:25 Arm band placed on. tw2 10:27 Patient maintains SpO2 saturation greater than 95% on room air. tw2 10:30 Patient has correct armband on for positive identification. Bed in low position. Call bp light in reach. Side rails up X2. Pulse ox on. NIBP on. 10:31 EKG completed in triage. Results shown to MD. tw2 11:29 Dilan Clark PA is PHCP. cp 11:29 Zbigniew Venegas MD is Attending Physician. cp 11:46 X-ray completed. Portable x-ray completed in exam room. jr1 11:49 Chest Single View XRAY In Process Unspecified. EDMS 11:51 Leo Figueroa, RN is Primary Nurse. bp 12:10 Inserted saline lock: 20 gauge in right forearm, using aseptic technique. Blood bp collected. 13:43 No provider procedures requiring assistance completed. IV discontinued, intact, bp bleeding controlled, No redness/swelling at site. Pressure dressing applied. Administered Medications: 12:00 Drug: Tussionex Pennkinetic ER 5 ml Route: PO; bp 13:45 Follow up: Response: No adverse reaction bp 12:00 Drug: Albuterol 2.5 mg Route: Inhalation; bp 12:00 Drug: AtroVENT Aerosol 0.5 mg Route: Inhalation; bp 12:00 Drug: NS 0.9% 1000 ml Route: IV; Rate: 125 ml/hr; Site: right forearm; bp 13:44 Follow up: IV Status: Completed infusion; IV Intake: 250ml bp 12:00 Drug: NS 0.9% 500 ml Route: IV; Rate: bolus; Site: right forearm; bp 13:44 Follow up: IV Status: Completed infusion; IV Intake: 500ml bp Intake: 13:44 IV: 500ml; Total: 500ml. bp 13:44 IV: 250ml; Total: 750ml. bp Outcome: 13:27 Discharge ordered by MD. cp 13:43 Discharged to home ambulatory, with family. bp 13:43 Condition: stable 13:43 Discharge instructions given to patient, Instructed on discharge instructions, follow up and referral plans. medication usage, Demonstrated understanding of instructions, follow-up care, medications, Prescriptions given X 3. 13:45 Patient left the ED. bp Signatures: Dispatcher [employer] EDAL Lyudmila Vasquez Jennifer jr1 Dilan Clark PA PA cp Wise, Tara, RN RN tw2 Leo Figueroa, RN RN bp Corrections: (The following items were deleted from the chart) 13:43 13:42 BP 115 / 40; Pulse 77bpm; Resp 16bpm; Pulse Ox 97%; bp bp
--- NOTE | 2018-11-03 13:28 | EDPHYS ---
Physician Documentation [facility] Name: Karen Lyons Age: 58 yrs Sex: Female : 1960 Arrival Date: 11/03/2018 Time: 10:15 Bed 5 Private MD: Mila Moraes C ED Physician Zbigniew Venegas HPI: 11/03 11:00 This 58 yrs old Black Female presents to ER via Ambulatory with complaints of Cough, cp Chest Pain. 11:00 The patient or guardian reports cough, that is intermittent, with productive sputum, cp that is yellow. 11:00 Onset: The symptoms/episode began/occurred 4 day(s) ago. Severity of symptoms: in the emergency department the symptoms are unchanged, despite home interventions. Associated signs and symptoms: Pertinent positives: chest pain, with cough, Pertinent negatives: diarrhea, fever, sore throat, vomiting. Historical: - Allergies: 10:27 Latex, Natural Rubber; tw2 - Home Meds: 10:27 Glipizide Oral [Active]; Januvia Oral [Active]; metformin 850 mg Oral tab [Active]; tw2 Toujeo SoloStar 50 units subcutaneous [Active]; - PMHx: 10:27 Cancer, Breast; Diabetes - NIDDM; tw2 - PSHx: 10:27 Hysterectomy; left breast lumpectomy; right arm surgery; tw2 - Immunization history:: Adult Immunizations. - Social history:: Smoking status: . - Ebola Screening: : Patient denies travel to an Ebola-affected area in the 21 days before illness onset. ROS: 11:05 Constitutional: Negative for body aches, chills, fever, poor PO intake. cp 11:05 Eyes: Negative for injury, pain, redness, and discharge. cp 11:05 ENT: Negative for drainage from ear(s), ear pain, sore throat, difficulty swallowing, difficulty handling secretions. 11:05 Cardiovascular: Positive for chest pain, with cough, Negative for edema, palpitations. 11:05 Respiratory: Positive for cough, with yellow sputum, Negative for shortness of breath, wheezing. 11:05 Abdomen/GI: Negative for abdominal pain, nausea, vomiting, and diarrhea, constipation. 11:05 Back: Negative for decreased range of motion, pain at rest, pain with movement. 11:05 Skin: Negative for cellulitis, rash. 11:05 Neuro: Negative for altered mental status, headache, weakness. 11:05 All other systems are negative. Exam: 10:37 ECG was reviewed by the Attending Physician. cp 11:12 Constitutional: The patient appears in no acute distress, alert, awake, cp non-diaphoretic, non-toxic, well developed, well nourished. 11:12 Head/Face: Normocephalic, atraumatic. Eyes: Pupils equal round and reactive to light, cp extra-ocular motions intact. Lids and lashes normal. Conjunctiva and sclera are non-icteric and not injected. Cornea within normal limits. Periorbital areas with no swelling, redness, or edema. ENT: Nares patent. No nasal discharge, no septal abnormalities noted. Tympanic membranes are normal and external auditory canals are clear. Oropharynx with no redness, swelling, or masses, exudates, or evidence of obstruction, uvula midline. Mucous membranes moist. 11:12 Neck: ROM/movement: is normal, is supple, without pain, no range of motions limitations, no nuchal rigidity. 11:12 Chest/axilla: Inspection: normal, Palpation: is normal, no crepitus, no tenderness. 11:12 Cardiovascular: Rate: normal, Rhythm: regular, Edema: is not appreciated, JVD: is not appreciated. 11:12 Respiratory: the patient does not display signs of respiratory distress, Respirations: normal, no use of accessory muscles, no retractions, no splinting, no tachypnea, labored breathing, is not present, Breath sounds: bronchial sounds, are not appreciated, decreased breath sounds, are not appreciated, stridor, is not appreciated, wheezing: is not appreciated. 11:12 Abdomen/GI: Inspection: abdomen appears normal, Bowel sounds: active, all quadrants. 11:12 Back: pain, is absent, ROM is normal. 11:12 Skin: cellulitis, is not appreciated, no rash present. 11:12 Neuro: Orientation: to person, place \T\ time. Mentation: is normal, Cerebellar function: is grossly normal, Motor: moves all fours, strength is normal, Sensation: is normal. Vital Signs: 10:24 BP 142 / 88; Pulse 83; Resp 17; Temp 97.2(TE); Pulse Ox 100% on R/A; Weight 103.42 kg tw2 (R); Height 5 ft. 5 in. (165.10 cm) (R); Pain 8/10; 12:20 BP 110 / 61; Pulse 79; Resp 14; Pulse Ox 100% ; bp 13:25 BP 114 / 56; Pulse 81; Resp 16; Pulse Ox 100% ; bp 10:24 Body Mass Index 37.94 (103.42 kg, 165.10 cm) tw2 10:24 pain when i take a deep breath tw2 MDM: 11:33 Patient medically screened. cp 12:00 Differential Diagnosis: Bronchitis Influenza Viral Syndrome Pneumonia Other pulmonary cp embolism, CHF. 13:20 Data reviewed: vital signs, nurses notes, lab test result(s), EKG, radiologic studies, cp plain films. 13:20 Test interpretation: by ED physician or midlevel provider: ECG, plain radiologic cp studies. Counseling: I had a detailed discussion with the patient and/or guardian regarding: the historical points, exam findings, and any diagnostic results supporting the discharge/admit diagnosis, lab results, radiology results, the need for outpatient follow up, a family practitioner, to return to the emergency department if symptoms worsen or persist or if there are any questions or concerns that arise at home. Response to treatment: the patient's symptoms have markedly improved after treatment. ED course: VSS. Symptoms improved with meds. Will discharge to home for continued monitoring. 11/03 11:48 Order name: Influenza Screen (a \T\ B); Complete Time: 12:56 cp 11/03 11:50 Order name: Basic Metabolic Panel; Complete Time: 12:56 cp 11/03 12:56 Interpretation: Normal except: GLUC 151. cp 11/03 11:50 Order name: CBC with Diff; Complete Time: 12:56 cp 11/03 12:56 Interpretation: Normal except: RBC 5.21; MCH 26.1; MCHC 31.9. cp 11/03 11:50 Order name: LFT's; Complete Time: 12:56 cp 11/03 12:56 Interpretation: Normal except: AST 14; GLOB 4.2; A/G 0.8. cp 11/03 11:50 Order name: Magnesium; Complete Time: 12:56 cp 11/03 11:50 Order name: NT PRO-BNP; Complete Time: 12:56 cp 11/03 10:53 Order name: Chest Single View XRAY; Complete Time: 12:56 ss 11/03 11:50 Order name: PT-INR; Complete Time: 12:56 cp 11/03 11:50 Order name: Troponin (emerg Dept Use Only); Complete Time: 12:56 cp 11/03 11:54 Order name: D-Dimer; Complete Time: 12:56 cp 11/03 10:17 Order name: EKG; Complete Time: 10:17 ss 11/03 10:17 Order name: EKG - Nurse/Tech; Complete Time: 10:31 ss 11/03 11:50 Order name: Cardiac monitoring; Complete Time: 12:19 cp 11/03 11:50 Order name: IV Saline Lock; Complete Time: 12:19 cp 11/03 11:50 Order name: Labs collected and sent; Complete Time: 12:19 cp 11/03 11:50 Order name: O2 Per Protocol; Complete Time: 12:19 cp 11/03 11:50 Order name: O2 Sat Monitoring; Complete Time: 12:19 cp EC:37 Rate is 84 beats/min. Rhythm is regular. RI interval is normal. QRS interval is normal. cp QT interval is normal. Interpreted by me. Reviewed by me. Administered Medications: 12:00 Drug: Tussionex Pennkinetic ER 5 ml Route: PO; bp 13:45 Follow up: Response: No adverse reaction bp 12:00 Drug: Albuterol 2.5 mg Route: Inhalation; bp 12:00 Drug: AtroVENT Aerosol 0.5 mg Route: Inhalation; bp 12:00 Drug: NS 0.9% 1000 ml Route: IV; Rate: 125 ml/hr; Site: right forearm; bp 13:44 Follow up: IV Status: Completed infusion; IV Intake: 250ml bp 12:00 Drug: NS 0.9% 500 ml Route: IV; Rate: bolus; Site: right forearm; bp 13:44 Follow up: IV Status: Completed infusion; IV Intake: 500ml bp Disposition: 16:28 Co-signature as Attending Physician, Zbigniew Venegas MD I agree with the assessment and kdr plan of care. Disposition: 11/03/18 13:27 Discharged to Home. Impression: Acute bronchitis, unspecified. - Condition is Stable. - Discharge Instructions: Acute Bronchitis, Adult. - Prescriptions for Albuterol Sulfate 90 mcg/actuation - inhale 1-2 puff by INHALATION route every 4-6 hours; 1 Inhaler. Guaifenesin AC 10- 100 mg/5 mL Oral Liquid - take 10 milliliters by ORAL route every 4 hours As needed; 180 milliliter. Amoxicillin 875 mg Oral Tablet - take 1 tablet by ORAL route every 12 hours for 10 days; 20 tablet. - Medication Reconciliation Form, Thank You Letter, Antibiotic Education, Prescription Opioid Use form. - Follow up: Private Physician; When: 2 - 3 days; Reason: Worsening of condition. - Problem is new. - Symptoms have improved. Signatures: Dispatcher [employer] EDMS Zbigniew Venegas MD MD [facility] Lisa Bains RN RN ss Dilan Clark PA PA cp Rebecca Sims, MINERVA RN tw2 Leo Figueroa RN RN bp Corrections: (The following items were deleted from the chart) 13:45 13:27 11/03/2018 13:27 Discharged to Home. Impression: Acute bronchitis, unspecified. bp Condition is Stable. Forms are Medication Reconciliation Form, Thank You Letter, Antibiotic Education, Prescription Opioid Use. Follow up: Private Physician; When: 2 - 3 days; Reason: Worsening of condition. Problem is new. Symptoms have improved. cp
[2018-11-03 13:59] VITALS: TEMP 97.2; O2SAT 100
[2018-11-03 14:02] VITALS: BP 114/56
== END 2018-11-03 13:45 | disposition home or self-care (01) ==
LOC: ER 10:13
DX: J20.9 Acute bronchitis, unspecified (principal); C50.919 Malignant neoplasm of unspecified site of unspecified female breast; E11.9 Type 2 diabetes mellitus without complications
CPT/HCPCS: 36415; 71045; 80048; 80076; 83735; 83880; 84484; 85025; 85379; 85610; 87804; 93005; 96360; 96361; 99285; J7030

== ENCOUNTER 2019-07-07 22:19 | Emergency (ER) | payer OTHER ==
[2019-07-08] MEDS ORDERED: TRAMADOL HCL 50 MG TAB ONE (00:33)
[2019-07-08] MEDS ORDERED: KETOROLAC 30 MG/ML INJ ONE ×2 (00:34→00:38)
[2019-07-08] MEDS ORDERED: CLINDAMYCIN HCL 150 MG CAP ONE (00:34)
--- NOTE | 2019-07-08 00:49 | EDPHYS ---
Physician Documentation [facility] Name: Karen Lyons Age: 58 yrs Sex: Female : 1960 Arrival Date: 07/07/2019 Time: 22:26 Bed 4 Private MD: ED Physician Neil Taveras HPI: 07/08 04:33 This 58 yrs old Black Female presents to ER via Ambulatory with complaints of Ear Pain, tw4 Neck Pain, >24Hrs Old, PAIN ON LEFT SIDE OF FACE. 04:33 The patient presents with pain, that is acute. The complaints affect the left ear and tw4 left jaw. Onset: The symptoms/episode began/occurred today. Modifying factors: The symptoms are alleviated by nothing, the symptoms are aggravated by touching. Associated signs and symptoms: The patient has no apparent associated signs or symptoms. Severity of symptoms: At their worst the symptoms were moderate in the emergency department the symptoms are unchanged. The patient has not experienced similar symptoms in the past. Historical: - Allergies: 07/07 22:46 Latex, Natural Rubber; rr5 - Home Meds: 22:46 Glipizide Oral [Active]; Januvia Oral [Active]; metformin 850 mg Oral tab [Active]; rr5 Toujeo SoloStar 50 units subcutaneous [Active]; - PMHx: 22:46 Cancer, Breast; Diabetes - NIDDM; rr5 - PSHx: 22:46 lymph nodes removed left breast; Hysterectomy; rr5 - Immunization history:: Adult Immunizations up to date. - Social history:: Smoking status: Patient/guardian denies using tobacco, Patient/guardian denies using alcohol, street drugs. - Ebola Screening: : Patient negative for fever greater than or equal to 101.5 degrees Fahrenheit, and additional compatible Ebola Virus Disease symptoms Patient denies exposure to infectious person Patient denies travel to an Ebola-affected area in the 21 days before illness onset. ROS: 07/08 04:33 Constitutional: Negative for fever, chills, and weight loss, Cardiovascular: Negative tw4 for chest pain, palpitations, and edema, Respiratory: Negative for shortness of breath, cough, wheezing, and pleuritic chest pain, Abdomen/GI: Negative for abdominal pain, nausea, vomiting, diarrhea, and constipation, Back: Negative for injury and pain, MS/Extremity: Negative for injury and deformity, Skin: Negative for injury, rash, and discoloration, Neuro: Negative for headache, weakness, numbness, tingling, and seizure. ENT: Positive for ear pain. Neck: Positive for pain with movement, pain at rest. Exam: 04:33 Constitutional: This is a well developed, well nourished patient who is awake, alert, tw4 and in no acute distress. Head/Face: Normocephalic, atraumatic. ENT: Nares patent. No nasal discharge, no septal abnormalities noted. Tympanic membranes are normal and external auditory canals are clear. Oropharynx with no redness, swelling, or masses, exudates, or evidence of obstruction, uvula midline. Mucous membranes moist. 04:33 Cardiovascular: Regular rate and rhythm with a normal S1 and S2. No gallops, murmurs, or rubs. Normal PMI, no JVD. No pulse deficits. Respiratory: Lungs have equal breath sounds bilaterally, clear to auscultation and percussion. No rales, rhonchi or wheezes noted. No increased work of breathing, no retractions or nasal flaring. 04:33 ENT: Ear canal(s): 04:33 Neck: External neck: swelling, that is mild, of the left submandibular area and left sternocleidomastoid, C-spine: appears grossly normal, Thyroid: appears normal, Trachea: is midline with no obvious abnormalities, ROM/movement: limited range of motion, that is mild, when rotating to the left, Lymph nodes: lymphadenopathy is appreciated, anterior cervical nodes, preauricular nodes, post auricular nodes. Vital Signs: 07/07 22:40 BP 114 / 59; Pulse 99; Resp 19; Temp 98.5; Pulse Ox 100% ; Weight 103.42 kg; Height 5 rr5 ft. 5 in. (165.10 cm); Pain 9/10; 23:30 BP 109 / 53; Pulse 97; Resp 16; Pulse Ox 97% on R/A; rr5 07/08 00:30 BP 125 / 63; Pulse 94; Resp 17; Pulse Ox 98% on R/A; rr5 01:10 BP 104 / 57; Pulse 85; Resp 18; Temp 98; Pulse Ox 99% on R/A; Pain 7/10; rr5 07/07 22:40 Body Mass Index 37.94 (103.42 kg, 165.10 cm) rr5 MDM: 07/07 22:53 Patient medically screened. tw4 07/08 04:33 Differential diagnosis: otitis media, otitis externa. Data reviewed: vital signs, tw4 nurses notes. Counseling: I had a detailed discussion with the patient and/or guardian regarding: the historical points, exam findings, and any diagnostic results supporting the discharge/admit diagnosis. Medication response: Toradol markedly relieved the patient's pain. Response to treatment: and as a result, I will discharge patient, administer antibiotics augmentin. Special discussion: I discussed with the patient/guardian in detail that at this point there is no indication for admission to the hospital. It is understood, however, that if the symptoms persist or worsen the patient needs to return immediately for re-evaluation. 07/08 00:55 Order name: Glucose, Ancillary Testing EDMS Administered Medications: 00:40 Drug: Cleocin 300 mg Route: PO; rr5 01:16 Follow up: Response: No adverse reaction rr5 00:40 Drug: traMADol 50 mg {Note: rasss 0.} Route: PO; rr5 01:16 Follow up: Response: No adverse reaction; RASS: Alert and Calm (0) rr5 00:45 Drug: TORadol 60 mg Route: IM; Site: right gluteus; rr5 01:16 Follow up: Response: No adverse reaction rr5 Disposition: 07/08/19 00:48 Discharged to Home. Impression: Acute lymphadenitis of face, head and neck. - Condition is Stable. - Discharge Instructions: Lymphadenopathy. - Prescriptions for Augmentin 875- 125 mg Oral Tablet - take 1 tablet by ORAL route every 12 hours for 10 days; 20 tablet. Ibuprofen 800 mg Oral Tablet - take 1 tablet by ORAL route every 8 hours As needed take with food; 30 tablet. Tramadol 50 mg Oral Tablet - take 1 tablet by ORAL route every 8 hours as needed; 12 tablet. - Medication Reconciliation Form, Thank You Letter, Antibiotic Education, Prescription Opioid Use form. - Follow up: Private Physician; When: Upon discharge from the Emergency Department; Reason: Recheck today's complaints, Continuance of care. - Problem is new. - Symptoms have improved. Signatures: Neil Taveras MD MD tw4 Alvarez, Brad, RN RN rr5 Corrections: (The following items were deleted from the chart) 01:17 00:48 07/08/2019 00:48 Discharged to Home. Impression: Acute lymphadenitis of face, rr5 head and neck. Condition is Stable. Forms are Medication Reconciliation Form, Thank You Letter, Antibiotic Education, Prescription Opioid Use. Follow up: Private Physician; When: Upon discharge from the Emergency Department; Reason: Recheck today's complaints, Continuance of care. Problem is new. Symptoms have improved. tw4
--- NOTE | 2019-07-08 00:49 | ER ---
Nurse's Notes [facility] Name: Karen Lyons Age: 58 yrs Sex: Female : 1960 Arrival Date: 07/07/2019 Time: 22:26 Bed 4 Private MD: Diagnosis: Acute lymphadenitis of face, head and neck Presentation: 07/07 22:40 Presenting complaint: Patient states: i have a sore throat for couple of weeks on and rr5 off. now I felt some lumps on the left side of my neck and my left face, left ear and left neck is hurting. 22:40 Transition of care: patient was not received from another setting of care. Onset of rr5 symptoms was June 2019. Risk Assessment: Do you want to hurt yourself or someone else? Patient reports no desire to harm self or others. Initial Sepsis Screen: Does the patient meet any 2 criteria? No. Patient's initial sepsis screen is negative. Does the patient have a suspected source of infection? No. Patient's initial sepsis screen is negative. Care prior to arrival: None. 22:40 Method Of Arrival: Ambulatory rr5 22:40 Acuity: TONYA 3 rr5 Historical: - Allergies: 22:46 Latex, Natural Rubber; rr5 - Home Meds: 22:46 Glipizide Oral [Active]; Januvia Oral [Active]; metformin 850 mg Oral tab [Active]; rr5 Toujeo SoloStar 50 units subcutaneous [Active]; - PMHx: 22:46 Cancer, Breast; Diabetes - NIDDM; rr5 - PSHx: 22:46 lymph nodes removed left breast; Hysterectomy; rr5 - Immunization history:: Adult Immunizations up to date. - Social history:: Smoking status: Patient/guardian denies using tobacco, Patient/guardian denies using alcohol, street drugs. - Ebola Screening: : Patient negative for fever greater than or equal to 101.5 degrees Fahrenheit, and additional compatible Ebola Virus Disease symptoms Patient denies exposure to infectious person Patient denies travel to an Ebola-affected area in the 21 days before illness onset. Screenin:40 Fall Risk None identified. Total Dumont Fall Scale indicates No Risk (0-24 pts). rr5 22:47 Abuse screen: Denies threats or abuse. Denies injuries from another. Nutritional rr5 screening: No deficits noted. Tuberculosis screening: No symptoms or risk factors identified. Assessment: 22:40 General: Appears in no apparent distress. uncomfortable, Behavior is calm, cooperative, rr5 appropriate for age. Pain: Complains of pain in left ear, left face, left neck Pain does not radiate. Pain currently is 9 out of 10 on a pain scale. Quality of pain is described as aching, Pain began gradually, Is intermittent. Neuro: Level of Consciousness is awake, alert, obeys commands, Oriented to person, place, time, situation, Appropriate for age. Cardiovascular: Capillary refill < 3 seconds Patient's skin is warm and dry. Respiratory: Airway is patent Respiratory effort is even, unlabored, Respiratory pattern is regular, symmetrical. GI: No signs and/or symptoms were reported involving the gastrointestinal system. : No signs and/or symptoms were reported regarding the genitourinary system. EENT: Throat is clear with gag reflex present, neck lumps palpated left neck. Reports pain in neck and ear when swallowing Pain is 9 out of 10 on a pain scale. 22:40 Derm: Skin is intact, is healthy with good turgor, Skin temperature is warm. rr5 Musculoskeletal: Circulation, motion, and sensation intact. Capillary refill < 3 seconds. 23:30 Reassessment: Patient appears in no apparent distress at this time. Patient is alert, rr5 oriented x 3, equal unlabored respirations, skin warm/dry/pink. awaiting for ED provider. 07/08 00:30 Reassessment: Patient appears in no apparent distress at this time. Patient is alert, rr5 oriented x 3, equal unlabored respirations, skin warm/dry/pink. 00:55 Reassessment: Patient appears in no apparent distress at this time. Patient is alert, rr5 oriented x 3, equal unlabored respirations, skin warm/dry/pink. patient requested to check her blood sugar. 01:00 Reassessment: Patient appears in no apparent distress at this time. Patient is alert, rr5 oriented x 3, equal unlabored respirations, skin warm/dry/pink. discharge instruction given and explained without complaints made. verbalized understanding. Patient states symptoms have improved. Vital Signs: 07/07 22:40 BP 114 / 59; Pulse 99; Resp 19; Temp 98.5; Pulse Ox 100% ; Weight 103.42 kg; Height 5 rr5 ft. 5 in. (165.10 cm); Pain 9/10; 23:30 BP 109 / 53; Pulse 97; Resp 16; Pulse Ox 97% on R/A; rr5 07/08 00:30 BP 125 / 63; Pulse 94; Resp 17; Pulse Ox 98% on R/A; rr5 01:10 BP 104 / 57; Pulse 85; Resp 18; Temp 98; Pulse Ox 99% on R/A; Pain 7/10; rr5 07/07 22:40 Body Mass Index 37.94 (103.42 kg, 165.10 cm) rr5 ED Course: 07/07 22:26 Patient arrived in ED. cf2 22:28 Brad Alvarez, RN is Primary Nurse. rr5 22:40 Arm band placed on. rr5 22:41 Patient has correct armband on for positive identification. Placed in gown. Bed in low rr5 position. Call light in reach. Pulse ox on. NIBP on. 22:44 Triage completed. rr5 22:53 Neil Taveras MD is Attending Physician. tw4 23:50 Awaiting ED provider evaluation, Awaiting: CN aware. rr5 07/08 01:15 No provider procedures requiring assistance completed. Patient did not have IV access rr5 during this emergency room visit. Administered Medications: 00:40 Drug: Cleocin 300 mg Route: PO; rr5 01:16 Follow up: Response: No adverse reaction rr5 00:40 Drug: traMADol 50 mg {Note: rasss 0.} Route: PO; rr5 01:16 Follow up: Response: No adverse reaction; RASS: Alert and Calm (0) rr5 00:45 Drug: TORadol 60 mg Route: IM; Site: right gluteus; rr5 01:16 Follow up: Response: No adverse reaction rr5 Outcome: 00:48 Discharge ordered by . tw4 01:15 Discharged to home ambulatory, with family. rr5 01:15 Condition: stable 01:15 Discharge instructions given to patient, Instructed on discharge instructions, Demonstrated understanding of instructions, follow-up care, medications, Prescriptions given X 3. 01:17 Patient left the ED. rr5 Signatures: Neil Taveras MD MD tw4 Brad Alvarez, RN RN rr5 Dayana Lam cf2 Corrections: (The following items were deleted from the chart) 00:19 00:00 Awaiting ED provider evaluation, rr5 rr5
[2019-07-08 04:27] VITALS: BP 104/57; TEMP 98; O2SAT 99
== END 2019-07-08 01:17 | disposition home or self-care (01) ==
LOC: ER 22:19
DX: L04.0 Acute lymphadenitis of face, head and neck (principal); Z91.040 Latex allergy status; E11.9 Type 2 diabetes mellitus without complications; Z85.3 Personal history of malignant neoplasm of breast
CPT/HCPCS: 82947; 96372; 99283

== ENCOUNTER 2019-12-24 20:04 | Emergency (ER) | payer OTHER ==
[2019-12-24] MEDS ORDERED: TETANUS & DIPHTHERIA TOX,ADULT 0.5 ML VIAL ONE (20:50)
[2019-12-24 21:02] VITALS: BP 137/65; TEMP 97.8; O2SAT 99
--- NOTE | 2019-12-26 18:16 | ER ---
Nurse's Notes [facility] Name: Karen Lyons Age: 59 yrs Sex: Female : 1960 Arrival Date: 12/24/2019 Time: 20:09 Bed 10 Private MD: Diagnosis: Puncture Wound right Foot Presentation: 12/23 20:15 Chief complaint: Patient states: [place] , and rv accidentally stepped on a hammer and had a small wound on the outside of the heel, right foot. I think a need a tetanus shot. Coronavirus screen: Proceed with normal triage. Ebola Screen: No symptoms or risks identified at this time. 20:15 Method Of Arrival: Ambulatory rv 20:17 Initial Sepsis Screen: Does the patient meet any 2 criteria? No. Patient's initial rv sepsis screen is negative. Does the patient have a suspected source of infection? No. Patient's initial sepsis screen is negative. Risk Assessment: Do you want to hurt yourself or someone else? Patient reports no desire to harm self or others. Onset of symptoms was December 22, 2019 at 19:00. 20:17 Acuity: TONYA 5 rv Triage Assessment: 20:22 General: Appears comfortable, Behavior is calm, cooperative. Pain: Complains of pain in rv right foot. Pain: Pain currently is 5 out of 10 on a pain scale. Neuro: Level of Consciousness is awake, alert, obeys commands, Oriented to person, place, time, situation. Cardiovascular: Patient's skin is warm and dry. Respiratory: Airway is patent. Musculoskeletal: Swelling absent. Injury Description: abrasion on right foot. Historical: - Allergies: 20:19 Latex, Natural Rubber; rv - PMHx: 20:19 Cancer, Breast; Diabetes - NIDDM; rv - PSHx: 20:19 None; rv - Immunization history:: Last tetanus immunization: unknown. - Social history:: Smoking status: Patient denies any tobacco usage or history of. Screenin:24 Abuse screen: Denies threats or abuse. Denies injuries from another. Nutritional rv screening: No deficits noted. Tuberculosis screening: No symptoms or risk factors identified. Fall Risk None identified. Vital Signs: 20:17 BP 137 / 65; Pulse 98; Resp 18; Temp 97.8; Pulse Ox 99% on R/A; Weight 103.42 kg; rv Height 5 ft. 5 in. (165.10 cm); Pain 5/10; 20:17 Body Mass Index 37.94 (103.42 kg, 165.10 cm) rv ED Course: 20:09 Patient arrived in ED. bp1 20:18 Triage completed. rv 20:19 Arm band placed on Patient placed in the treatment room, on a stretcher, Patient rv notified of wait time. 20:21 Veto Brunson MD is Attending Physician. [facility] 20:22 Lyle Longo RN is Primary Nurse. rv 20:24 Patient has correct armband on for positive identification. Call light in reach. rv 20:24 No provider procedures requiring assistance completed. rv 20:54 Patient did not have IV access during this emergency room visit. rv Administered Medications: 20:45 Drug: Tetanus-Diphtheria Toxoid Adult 0.5 ml {Network Associate: [employer]. Exp: rv 09/09/2021. Lot #: [id number]. } Route: IM; Site: right deltoid; 20:54 Follow up: Response: Medication administered at discharge. rv Outcome: 20:50 Discharge ordered by . 7 20:54 Discharged to home ambulatory. rv 20:54 Condition: good 20:54 Discharge instructions given to patient, Instructed on discharge instructions, follow up and referral plans. medication usage, wound care, Demonstrated understanding of instructions, follow-up care, medications, Prescriptions given X 1. 20:55 Patient left the ED. rv Signatures: Lyle Longo RN RN rv Sonali Marie bp1 Veto Brunson MD MD [facility] Corrections: (The following items were deleted from the chart) 20:24 20:15 Chief complaint: Patient states: working in the [employer] and accidentally rv stepped on a hammer and had a small wound on the outside of the heel, right foot. rv
--- NOTE | 2019-12-26 18:16 | EDPHYS ---
Physician Documentation [facility] Name: Karen Lyons Age: 59 yrs Sex: Female : 1960 Arrival Date: 12/24/2019 Time: 20:09 Bed 10 Private MD: ANETA Physician Veto Brunson HPI: 12/23 20:39 This 59 yrs old Black Female presents to ER via Ambulatory with complaints of Foot mh7 Injury. 20:39 The patient presents with. mh7 20:40 The patient presents with an injury. The complaints affect the right foot. Context: The mh7 problem was sustained at home, resulted from the patient stepping on sharp metal, while not wearing shoes, Mechanism of Injury: Unknown the patient can fully bear weight, the patient is able to ambulate, without difficulty. Onset: The symptoms/episode began/occurred 2 day(s) ago. Modifying factors: The symptoms are alleviated by sitting, the symptoms are aggravated by weight bearing. Associated signs and symptoms: Pertinent negatives: calf tenderness, fever, nausea, numbness, rash, swelling, tingling, vomiting, warmth, weakness. Patient states that she stepped on a prashanth hammer while cleaning her house. It caused avulsion of skin on the plantar right foot. Denies any bleeding, numbness/tingling, fever.. Historical: - Allergies: 20:19 Latex, Natural Rubber; rv - PMHx: 20:19 Cancer, Breast; Diabetes - NIDDM; rv - PSHx: 20:19 None; rv - Immunization history:: Last tetanus immunization: unknown. - Social history:: Smoking status: Patient denies any tobacco usage or history of. ROS: 20:40 Constitutional: Negative for fever, chills, and weight loss, Eyes: Negative for injury, mh7 pain, redness, and discharge, ENT: Negative for injury, pain, and discharge, Neck: Negative for injury, pain, and swelling, Cardiovascular: Negative for chest pain, palpitations, and edema, Respiratory: Negative for shortness of breath, cough, wheezing, and pleuritic chest pain, Abdomen/GI: Negative for abdominal pain, nausea, vomiting, diarrhea, and constipation, Back: Negative for injury and pain, : Negative for injury, bleeding, discharge, and swelling, Neuro: Negative for headache, weakness, numbness, tingling, and seizure, Psych: Negative for depression, anxiety, suicide ideation, homicidal ideation, and hallucinations, Allergy/Immunology: Negative for hives, rash, and allergies, Endocrine: Negative for neck swelling, polydipsia, polyuria, polyphagia, and marked weight changes. Exam: 20:40 Constitutional: This is a well developed, well nourished patient who is awake, alert, mh7 and in no acute distress. Head/Face: Normocephalic, atraumatic. Chest/axilla: Normal chest wall appearance and motion. Nontender with no deformity. No lesions are appreciated. Cardiovascular: Regular rate and rhythm with a normal S1 and S2. No gallops, murmurs, or rubs. Normal PMI, no JVD. No pulse deficits. Respiratory: Lungs have equal breath sounds bilaterally, clear to auscultation and percussion. No rales, rhonchi or wheezes noted. No increased work of breathing, no retractions or nasal flaring. Abdomen/GI: Soft, non-tender, with normal bowel sounds. No distension or tympany. No guarding or rebound. No evidence of tenderness throughout. Back: No spinal tenderness. No costovertebral tenderness. Full range of motion. Skin: Warm, dry with normal turgor. Normal color with no rashes, no lesions, and no evidence of cellulitis. 20:40 Neuro: Awake and alert, GCS 15, oriented to person, place, time, and situation. Cranial nerves II-XII grossly intact. Motor strength 5/5 in all extremities. Sensory grossly intact. Cerebellar exam normal. Normal gait. Psych: Awake, alert, with orientation to person, place and time. Behavior, mood, and affect are within normal limits. 20:40 Musculoskeletal/extremity: Extremities: noted in the right foot: Small wound with avulsed skin without active bleeding, tenderness, swelling, erythema, or discharge on plantar right foot lateral aspect., ROM: intact in all extremities, Circulation is intact in all extremities. Pulses: are normal with no appreciated deficits, Perfusion: the patient is normally perfused throughout, Perfusion: the extremity is normally perfused throughout, Calf tenderness, is absent, Edema, is not appreciated, Sensation intact. Compartment Syndrome exam of affected extremity: is normal. no pain, no numbness, no tingling, no sensation deficit, no palor, no weak pulses, Joints: All joints appear normal with full range of motion. Weight bearing: able to fully bear weight, without difficulty, Tendon exam: specific tendon testing normal through active and passive range of motion Vital Signs: 20:17 BP 137 / 65; Pulse 98; Resp 18; Temp 97.8; Pulse Ox 99% on R/A; Weight 103.42 kg; rv Height 5 ft. 5 in. (165.10 cm); Pain 5/10; 20:17 Body Mass Index 37.94 (103.42 kg, 165.10 cm) rv MDM: 20:32 Patient medically screened. [facility] 20:40 Differential diagnosis: cellulitis, laceration, puncture wound. Data reviewed: vital [facility] signs, nurses notes. Administered Medications: 20:45 Drug: Tetanus-Diphtheria Toxoid Adult 0.5 ml {Enrobing Machine Feeder: [employer]. Exp: rv 09/09/2021. Lot #: [id number]. } Route: IM; Site: right deltoid; 20:54 Follow up: Response: Medication administered at discharge. rv Disposition: 12/24/19 20:50 Discharged to Home. Impression: Puncture Wound right Foot. - Condition is Stable. - Discharge Instructions: Puncture Wound, [id number]. - Prescriptions for Cipro 500 mg Oral Tablet - take 1 tablet by ORAL route every 12 hours for 7 days; 14 tablet. - Medication Reconciliation Form, Thank You Letter, Antibiotic Education, Prescription Opioid Use form. - Follow up: Private Physician; When: 1 - 2 days; Reason: Worsening of condition, Re-evaluation by your physician. - Problem is new. - Symptoms have improved. Signatures: Lyle Longo RN RN rv Veto Brunson MD MD [facility] Corrections: (The following items were deleted from the chart) 20:55 20:50 12/24/2019 20:50 Discharged to Home. Impression: Puncture Wound right Foot. rv Condition is Stable. Forms are Medication Reconciliation Form, Thank You Letter, Antibiotic Education, Prescription Opioid Use. Follow up: Private Physician; When: 1 - 2 days; Reason: Worsening of condition, Re-evaluation by your physician. Problem is new. Symptoms have improved. [facility]
== END 2019-12-24 20:55 | disposition home or self-care (01) ==
LOC: ER 20:04
DX: S91.331A Puncture wound without foreign body, right foot, initial encounter (principal); W26.8XXA Contact with other sharp object(s), not elsewhere classified, initial encounter; Y93.E9 Activity, other interior property and clothing maintenance; Y92.009 Unspecified place in unspecified non-institutional (private) residence as the place of occurrence of the external cause; Z23 Encounter for immunization; Z85.3 Personal history of malignant neoplasm of breast; Z91.040 Latex allergy status; Z91.048 Other nonmedicinal substance allergy status
CPT/HCPCS: 90471; 90714; 99283

== ENCOUNTER 2021-10-27 18:47 | Emergency (ER) | payer OTHER ==
--- OUTSIDE RECORDS SUMMARY | 2021-10-27 18:50 | XMS REPORT | Continuity of Care Document ---
:1960 Author Organization [facility] t Address [address] [place] [address] Dr. Foley [address] [place] [id number] Care Team Providers Name Role Phone Unavailable Unavailable Unavailable Problems This patient has no known problems. Allergies, Adverse Reactions, Alerts This patient has no known allergies or adverse reactions. Medications This patient has no known medications. Procedures This patient has no known procedures. Encounters Start End Encounter Admission Attending Care Care Encounter Source Date/Time Date/Time Type Type Clinicians Facility Department ID 2021-08-29 Outpatient SHELLY BRAVO [id number] 17:47:06 Karoline lopez Results This patient has no known results.
[2021-10-27] MEDS ORDERED: HYDROCODONE/APAP 7.5/325 MG TAB ONE (19:17)
--- NOTE | 2021-10-27 19:38 | EDPHYS ---
Physician Documentation [facility] Name: Karen Lyons Age: 61 yrs Sex: Female : 1960 Arrival Date: 10/27/2021 Time: 18:49 Bed 11 Private MD: ED Physician Brett Batista HPI: 10/27 19:14 This 61 yrs old Black Female presents to ER via Ambulatory with complaints of Heel Pain.kb 19:14 The patient presents with pain, tenderness. The complaints affect the left Achilles. kb Onset: The symptoms/episode began/occurred 3 day(s) ago. Context: resulted from misstep off of a step, The patient can fully bear weight on the affected extremity. the patient is able to ambulate. Associated signs and symptoms: The patient has no apparent associated signs or symptoms. Modifying factors: The symptoms are alleviated by nothing, the symptoms are aggravated by weight bearing, movement. Severity of symptoms: At their worst the symptoms were moderate, in the emergency department the symptoms are unchanged. The patient has not experienced similar symptoms in the past. The patient has not recently seen a physician. Historical: - Allergies: 18:57 Latex, Natural Rubber; jl7 - PMHx: 18:57 Cancer, Breast; Diabetes - NIDDM; jl7 - PSHx: 18:57 Total abdominal hysterectomy; jl7 - Immunization history:: Client reports receiving the 2nd dose of the Covid vaccine. - Social history:: Smoking status: Patient denies any tobacco usage or history of. ROS: 19:13 Constitutional: Negative for fever, chills, and weight loss. kb 19:13 MS/extremity: Positive for pain, of the left Achilles. 19:13 All other systems are negative. Exam: 19:13 Constitutional: This is a well developed, well nourished patient who is awake, alert, kb and in no acute distress. Head/Face: Normocephalic, atraumatic. ENT: Moist Mucous membranes Cardiovascular: Regular rate and rhythm with a normal S1 and S2. No gallops, murmurs, or rubs. No pulse deficits. Respiratory: Respirations even and unlabored. No increased work of breathing. Talking in full sentences Skin: Warm, dry with normal turgor. Normal color. Neuro: Awake and alert, GCS 15, oriented to person, place, time, and situation. Moves all extremities. Normal gait. Psych: Awake, alert, with orientation to person, place and time. Behavior, mood, and affect are within normal limits. 19:13 Musculoskeletal/extremity: Extremities: grossly normal except: noted in the left Achilles: pain, tenderness, ROM: intact in all extremities, Circulation is intact in all extremities. Sensation intact. Weight bearing: able to fully bear weight. Vital Signs: 18:55 BP 129 / 59; Pulse 98; Resp 17; Pulse Ox 96% ; Weight 99.79 kg; Height 5 ft. 5 in. jl7 (165.10 cm); Pain 7/10; 19:58 BP 125 / 66; Pulse 78; Resp 18; Pulse Ox 100% on R/A; ld1 18:55 Body Mass Index 36.61 (99.79 kg, 165.10 cm) jl7 MDM: 19:00 Patient medically screened. kb 19:12 Data reviewed: vital signs, nurses notes. Data interpreted: Pulse oximetry: on room air kb is 96 %. Interpretation: normal. Counseling: I had a detailed discussion with the patient and/or guardian regarding: the historical points, exam findings, and any diagnostic results supporting the discharge/admit diagnosis, radiology results, the need for outpatient follow up, a orthopedic surgeon, to return to the emergency department if symptoms worsen or persist or if there are any questions or concerns that arise at home. 10/27 19:08 Order name: Ankle Left 3 View XRAY 10/27 19:37 Order name: Aircast Ankle Splint; Complete Time: 19:51 kb Administered Medications: 19:22 Drug: Mission (HYDROcodone-acetaminophen) (7.5 mg-325 mg) 1 tabs Route: PO; ld1 19:27 Follow up: Response: No adverse reaction ld1 Disposition: 10/28 07:21 Co-signature as Attending Physician, Brett Batista MD. rn Disposition Summary: 10/27/21 19:38 Discharge Ordered Location: Home kb Condition: Stable kb Diagnosis - Pain in left ankle and joints of left foot kb Followup: kb - With: Emergency Department - When: As needed - Reason: Worsening of condition Followup: kb - With: Private Physician - When: 2 - 3 days - Reason: Recheck today's complaints, Continuance of care, Re-evaluation by your physician Discharge Instructions: - Discharge Summary Sheet kb - Ankle Pain kb Forms: - Medication Reconciliation Form kb - Thank You Letter kb - Antibiotic Education kb - Prescription Opioid Use kb Prescriptions: - Diclofenac Sodium 75 mg Oral tablet,delayed release (DR/EC) - take 1 tablet by ORAL route 2 times per day As needed; 30 tablet; Refills: 0, kb Product Selection Permitted - orphenadrine citrate 100 mg Oral tablet extended release - take 1 tablet by ORAL route 2 times per day As needed; 10 tablet; Refills: 0, kb Product Selection Permitted Signatures: Dispatcher [employer] EDStephanie Dacosta, AIRCRAFT ENGINE [employer]CH[employer]IC-C AIRCRAFT ENGINE CYLINDER MECHANIC-CkBrett Guerra MD MD rn Nakul Gatica RN RN jl7 Kathrin Choudhary RN RN ld1
--- NOTE | 2021-10-27 19:38 | ER ---
Nurse's Notes [facility] Name: Karen Lyons Age: 61 yrs Sex: Female : 1960 Arrival Date: 10/27/2021 Time: 18:49 Bed 11 Private MD: Diagnosis: Pain in left ankle and joints of left foot Presentation: 10/27 18:55 Chief complaint: Patient states: Left heel/ankle pain x 3 -4 days, stepped off a ledge jl7 kind of weird and it's just gotten worse. Coronavirus screen: At this time, the client does not indicate any symptoms associated with coronavirus-19. Ebola Screen: No symptoms or risks identified at this time. Initial Sepsis Screen: Does the patient meet any 2 criteria? No. Patient's initial sepsis screen is negative. Does the patient have a suspected source of infection? No. Patient's initial sepsis screen is negative. Risk Assessment: Do you want to hurt yourself or someone else? Patient reports no desire to harm self or others. Onset of symptoms was October 24, 2021. 18:55 Method Of Arrival: Ambulatory jl7 18:55 Acuity: TONYA 4 jl7 Triage Assessment: 18:57 General: Appears in no apparent distress. uncomfortable, Behavior is calm, cooperative, jl7 appropriate for age. Pain: Complains of pain in left Achilles Pain currently is 7 out of 10 on a pain scale. Historical: - Allergies: 18:57 Latex, Natural Rubber; jl7 - PMHx: 18:57 Cancer, Breast; Diabetes - NIDDM; jl7 - PSHx: 18:57 Total abdominal hysterectomy; jl7 - Immunization history:: Client reports receiving the 2nd dose of the Covid vaccine. - Social history:: Smoking status: Patient denies any tobacco usage or history of. Screenin:58 Abuse screen: Denies threats or abuse. Denies injuries from another. Nutritional ld1 screening: No deficits noted. Tuberculosis screening: No symptoms or risk factors identified. Fall Risk None identified. Assessment: 19:58 Reassessment: see triage assessment. ld1 Vital Signs: 18:55 BP 129 / 59; Pulse 98; Resp 17; Pulse Ox 96% ; Weight 99.79 kg; Height 5 ft. 5 in. jl7 (165.10 cm); Pain 7/10; 19:58 BP 125 / 66; Pulse 78; Resp 18; Pulse Ox 100% on R/A; ld1 18:55 Body Mass Index 36.61 (99.79 kg, 165.10 cm) jl7 ED Course: 18:49 Patient arrived in ED. as 18:57 Triage completed. jl7 18:57 Arm band placed on right wrist. jl7 18:59 [facility]-C [facility]. kb 19:00 Brett Batista MD is Attending Physician. kb 19:13 Kathrin Choudhary, RN is Primary Nurse. ld1 19:39 Ankle Left 3 View XRAY In Process Unspecified. EDMS 19:59 Patient has correct armband on for positive identification. Placed in gown. Bed in low ld1 position. Call light in reach. Side rails up X2. electronic device monitor on. Pulse ox on. NIBP on. Door closed. Noise minimized. Warm blanket given. 19:59 No provider procedures requiring assistance completed. Patient did not have IV access ld1 during this emergency room visit. Administered Medications: 19:22 Drug: Medora (HYDROcodone-acetaminophen) (7.5 mg-325 mg) 1 tabs Route: PO; ld1 19:27 Follow up: Response: No adverse reaction ld1 Outcome: 19:38 Discharge ordered by . kb 19:59 Discharged to home ambulatory, with family. ld1 19:59 Condition: stable 19:59 Discharge instructions given to patient, Instructed on discharge instructions, follow up and referral plans. medication usage, Demonstrated understanding of instructions, follow-up care, medications, Prescriptions given X 2. 19:59 Patient left the ED. ld1 Signatures: Dispatcher [employer] EDHI Stephanie Pablo FNP-C FNP-Ckb Martinez, Amelia as Leal, Jahala RN RN jl7 Kathrin Choudhary, RN RN ld1
--- NOTE | 2021-10-27 19:51 | RAD REPORT ---
EXAM DESCRIPTION: RAD - Ankle Left 3 View - 10/27/2021 7:37 pm CLINICAL HISTORY: PAIN COMPARISON: No comparisons FINDINGS: Moderate posterior calcaneal spur is present. Slight bony fragmentation adjacent to the me dial malleolus is likely related to old injury. No acute fracture or dislocation seen.
[2021-10-27 20:59] VITALS: BP 125/66; O2SAT 100
== END 2021-10-27 19:59 | disposition home or self-care (01) ==
LOC: ER 18:47
DX: M25.572 Pain in left ankle and joints of left foot (principal); E11.9 Type 2 diabetes mellitus without complications; Z85.3 Personal history of malignant neoplasm of breast; Z91.040 Latex allergy status
CPT/HCPCS: 99284

== ENCOUNTER 2022-04-03 13:13 | Inpatient (IN) | payer OTHER ==
--- OUTSIDE RECORDS SUMMARY | 2022-04-03 13:16 | XMS REPORT | Continuity of Care Document ---
:1960 Author Organization [facility] t Address [address] [place] [address] [place] [address] Care Team Providers Name Role Phone Danis Attending Clinician Unavailable Danis Admitting Clinician Unavailable Payers Payer Name Policy Type Policy Number Effective Date Expiration Date [facility] [id number] (PPO) Problems Condition Condition Condition Status Onset Resolution Last Treating Co mments Source Name Details Category Date Date Treatment Clinician Date Body mass Body Mass Problem Active Kevin veronica index 30+ Index 30+ 8-02 Fami ly - obesity - Obesity 00:00: Prac tic 00 e Morbid Morbid Problem Active [facility] obesity Obesity 8-02 Family 00:00: Practic 00 e Type 2 Type 2 Problem Active [facility] diabetes Diabetes 8-02 Family mellitus Mellitus 00:00: Practi c 00 e Allergies, Adverse Reactions, Alerts Allergy Allergy Status Severity Reaction(s) Onset Inactive Treating Comm ents Source Name Type Date Date Clinician Farxiga Allergy Active Moderate Other [facility] to Family substanc Practic e e Metformi Allergy Active Severe Diarrhea Chaudhry ge n to Family substanc Practic e e Medications Ordered Filled Start Stop Current Ordering Indication Dosage Frequency Signature Comments Components Source Medication Medication Date Date Medication? Clinician (SIG) Name Name albuterol albuterol No albuterol [facility] sulfate HFA sulfate HFA sulfate Family 90 90 HFA 90 Practic mcg/actuati mcg/actuati mcg/actuat e on aerosol on aerosol ion inhaler inhaler aerosol INHAL 1 TO INHAL 1 TO inhaler 2 PUFFS 2 PUFFS INHAL 1 TO EVERY 4 TO EVERY 4 TO 2 PUFFS 6 HOURS 6 HOURS EVERY 4 TO NEEDED FOR NEEDED FOR 6 HOURS DIFFICULTY DIFFICULTY NEEDED FOR BREATHING BREATHING DIFFICULTY BREATHING atorvastati atorvastati No 1 Q1D atorvastat [facility] n 20 mg n 20 mg in 20 mg Famil y tablet Take tablet Take tablet Practic 1 tablet 1 tablet Take 1 e every day every day tablet by oral by oral every day route. route. by oral route. azithromyci [facility]ithromyci [facility] n 250 mg n 250 mg in 250 mg Fa [place] tablet TAKE tablet TAKE tablet Practic 2 TABLETS 2 TABLETS TAKE 2 e BY MOUTH ON BY MOUTH ON TABLETS BY DAY 1 THEN DAY 1 THEN MOUTH ON 1 TABLET 1 TABLET DAY 1 THEN EVERY DAY EVERY DAY 1 TABLET FOR 4 DAYS FOR 4 DAYS EVERY DAY FOR 4 DAYS azithromyci azithromyci No [facility] n 500 mg n 500 mg in 500 mg Fa edwin tablet TAKE tablet TAKE tablet Practic 1 TABLET BY 1 TABLET BY TAKE 1 e MOUTH EVERY MOUTH EVERY TABLET BY DAY FOR 5 DAY FOR 5 MOUTH DAYS DAYS EVERY DAY FOR 5 DAYS BD BD No BD [facility] Ultra-Fine Ultra-Fine Ultra-Fine Family Short Pen Short Pen Short Pen Practic Needle 31 Needle 31 Needle 31 e gauge x gauge x gauge x 5/16" USE 16" USE 16" USE DIRECTED DIRECTED ONCE DAILY ONCE DAILY DIRECTED ONCE DAILY benzonatate benzonatate No [facility] 100 mg 100 mg e 100 mg Family capsule capsule capsule Practi c TAKE 1 TAKE 1 TAKE 1 e CAPSULE BY CAPSULE BY CAPSULE BY MOUTH EVERY MOUTH EVERY MOUTH 8 HOURS 8 HOURS EVERY 8 NEEDED FOR NEEDED FOR HOURS COUGH COUGH NEEDED FOR COUGH benzonatate benzonatate No [facility] 200 mg 200 mg e 200 mg Family capsule capsule capsule Practi c TAKE 1 TAKE 1 TAKE 1 e CAPSULE BY CAPSULE BY CAPSULE BY MOUTH EVERY MOUTH EVERY MOUTH 8 HOURS 8 HOURS EVERY 8 NEEDED FOR NEEDED FOR HOURS COUGH COUGH NEEDED FOR COUGH [facility] mine-pseudo mine-pseudo amine-pseu Family ephedrine-D ephedrine-D doephedrin Practic M 2 mg-30 M 2 mg-30 e-DM 2 e mg-10 mg/5 mg-10 mg/5 mg-30 mL oral mL oral mg-10 mg/5 syrup TAKE syrup TAKE mL oral 10 ML BY 10 ML BY syrup TAKE MOUTH EVERY MOUTH EVERY 10 ML BY 6 HOURS 6 HOURS MOUTH NEEDED NEEDED EVERY 6 HOURS NEEDED Easy Touch Easy Touch No Easy Touch [facility] 31 gauge x 31 gauge x 31 gauge x Family 316" 16" 10/09" Practic needle USE needle USE needle USE e DIRECTED DIRECTED FOUR TIMES FOUR TIMES DIRECTED DAILY DAILY FOUR TIMES DAILY Flovent HFA Flovent HFA No Flovent [facility] 44 44 HFA 44 Family mcg/actuati mcg/actuati mcg/actuat Practic on aerosol on aerosol ion e inhaler inhaler aerosol INHAL 1 TO INHAL 1 TO inhaler 2 PUFFS 2 PUFFS INHAL 1 TO EVERY 12 EVERY 12 2 PUFFS HOURS RINSE HOURS RINSE EVERY 12 MOUTH AFTER MOUTH AFTER HOURS USE USE RINSE MOUTH AFTER USE fluconazole fluconazole No fluconazol [facility] 150 mg 150 mg e 150 mg Family tablet TAKE tablet TAKE tablet Practic 1 TABLET BY 1 TABLET BY TAKE 1 e MOUTH ONCE MOUTH ONCE TABLET BY A WEEK A WEEK MOUTH ONCE A WEEK gabapentin gabapentin No 1capsul TID gabapentin [facility] 300 mg 300 mg e(s) 300 mg Family capsule capsule capsule Practi c Take 1 Take 1 Take 1 e capsule 3 capsule 3 capsule 3 times a day times a day times a by oral by oral day by route. route. oral route. Guaiatussin Guaiatussin No Chrisaiatussi [facility] AC 10 AC 10 n AC 10 Family mg-100 mg/5 mg-100 mg/5 mg-100 Practic mL oral mL oral mg/5 mL e liquid TAKE liquid TAKE oral BY MOUTH 1 BY MOUTH 1 liquid TEASPOONFUL TEASPOONFUL TAKE BY EVERY 6 EVERY 6 MOUTH 1 HOURS HOURS TEASPOONFU NEEDD FOR NEEDD FOR L EVERY 6 COUGH COUGH HOURS NEEDD FOR COUGH Humalog Humalog No Humalog Alen Leger (U-100) (U-100) (U-100) Practi c Insulin 100 Insulin 100 Insulin e unit/mL unit/mL 100 subcutaneou subcutaneou unit/mL s s subcutaneo ADMINISTER ADMINISTER us 2 TO 10 2 TO 10 ADMINISTER UNITS UNDER UNITS UNDER 2 TO 10 THE SKIN THE SKIN UNITS THREE TIMES THREE TIMES UNDER THE DAILY WITH DAILY WITH SKIN THREE MEAL MEAL TIMES DAILY WITH MEAL Humalog Humalog No Humalog [facility] U-200 U-200 U-200 Practic Insulin 200 Insulin 200 Insulin e unit/mL (3 unit/mL (3 200 mL) mL) unit/mL (3 subcutaneou subcutaneou mL) s Give s Give subcutaneo before before us Give meals for meals for before glucose glucose meals for >200 using >200 using glucose CF 1:30: CF 1:30: >200 using TDD 50 TDD 50 CF 1:30: TDD 50 ivermectin ivermectin ivermectin [facility] 3 mg tablet 3 mg tablet 3 mg F amily TAKE 7 TAKE 7 tablet Practic TABLET BY TABLET BY TAKE 7 e MOUTH EVERY MOUTH EVERY TABLET BY DAY FOR 5 DAY FOR 5 MOUTH DAYS DAYS EVERY DAY FOR 5 DAYS meloxicam meloxicam meloxicam [facility] 15 mg 15 mg 15 mg Family tablet TAKE tablet TAKE tablet Practic 1 TABLET BY 1 TABLET BY TAKE 1 e MOUTH DAILY MOUTH DAILY TABLET BY WITH FOOD WITH FOOD MOUTH DAILY WITH FOOD metformin metformin No 1 BID metformin [facility] ER 500 mg ER 500 mg ER 500 mg Family 24 hr 24 hr 24 hr Practic tablet,exte tablet,exte tablet,ext e nded nded ended release release release Take 1 Take 1 Take 1 tablet tablet tablet twice a day twice a day twice a by oral by oral day by route with route with oral route meals for meals for with meals 30 days. 30 days. for 30 days. OneTouch OneTouch No 3strip( Q1D OneTouch [facility] Verio test Verio test s) Verio test Family strips Take strips Take strips Practic 3 strips 3 strips Take 3 e every day every day strips by miscell. by miscell. every day route for route for by 30 days. 30 days. miscell. route for 30 days. oseltamivir oseltamivir oseltamivi [facility] 75 mg 75 mg r 75 mg Family capsule capsule capsule Practi c TAKE 1 TAKE 1 TAKE 1 e CAPSULE BY CAPSULE BY CAPSULE BY MOUTH TWICE MOUTH TWICE MOUTH DAILY FOR 5 DAILY FOR 5 TWICE DAYS DAYS DAILY FOR 5 DAYS Ozempic Ozempic No .5mg Q1W Ozempic [facility] e 0.25 mg or 0.25 mg or 0.25 mg or Family 0.5 mg (2 0.5 mg (2 0.5 mg (2 Practic mg/1.5 mL) mg/1.5 mL) mg/1.5 mL) e subcutaneou subcutaneou subcutaneo s pen s pen us pen injector injector injector Inject 0.5 Inject 0.5 Inject 0.5 mg every mg every mg every week by week by week by subcutaneou subcutaneou subcutaneo s route for s route for us route 30 days. 30 days. for 30 days. Pepcid AC Pepcid AC No 1 BID Pepcid AC [facility] 20 mg 20 mg 20 mg Family tablet Take tablet Take tablet Practic 1 tablet 1 tablet Take 1 e twice a day twice a day tablet by oral by oral twice a route. route. day by oral route. Marlene Doherty [facility] U-300 U-300 U-300 [facility] SoloStar 70 SoloStar Practic units a day units a day 70 units a e day Marlene Doherty [facility] U-300 U-300 U-[facility] 300 unit/mL 300 unit/mL 300 e (3 mL) (3 mL) unit/mL (3 subcutaneou subcutaneou mL) s insulin s insulin subcutaneo pen Give 30 pen Give 30 us insulin units and units and pen Give increase as increase as 30 units directed: directed: and TDD 100 TDD 100 increase as directed: TDD 100 [facility] Fam modesta U-300 U-300 U-300 Practic Insulin 300 Insulin 300 Insulin e unit/mL unit/mL 300 (1.5 mL) (1.5 mL) unit/mL subcutaneou subcutaneou (1.5 mL) s pen s pen subcutaneo INJECT 70 INJECT 70 us pen UNITS UNITS INJECT 70 SUBCUTANEOU SUBCUTANEOU UNITS SLY ONCE SLY ONCE SUBCUTANEO DAILY AT DAILY AT USLY ONCE BEDTIME BEDTIME DAILY AT BEDTIME Immunizations Ordered Immunization Filled Immunization Date Status Commen ts Source Name Name influenza, influenza, 2020-08-14 Completed [facility] unspecified unspecified 00:00:00 Practice formulation formulation COVID-19, mRNA, COVID-19, mRNA, 2020-08-14 Completed [facility] age Family LNP-S, PF, 100 LNP-S, PF, 100 00:00:00 Practi ce mcg/0.5 mL dose mcg/0.5 mL dose (Moderna) (Moderna) Vital Signs Vital Name Observation Time Observation Value Comments Source BP Diastolic 2022-02-25 00:00:00 71 mm[Hg] [facility] Height 2022-02-25 00:00:00 65 [in_i] [facility] BMI (Body Mass 2022-02-25 00:00:00 39.1 kg/m2 [facility] Index) Practice BP Systolic 2022-02-25 00:00:00 122 mm[Hg] [facility] Body Weight 2022-02-25 00:00:00 235 [lb_av] [facility] Procedures Procedure Date / Time Performed Performing Clinician [facility] e EMPLOYMENT REPRESENTATIVE Surgery 2011-07-27 00:00:00 [facility] Ray carpenter (Gynecology) Practice Lumpectomy 1999-07-27 00:00:00 [facility] Ray carpenter Practice Plan of Care Planned Activity Planned Date Details Comments Source Diagnostic Test 2022-02-25 glucose, fingerstick, Kevin Leger Pending 00:00:00 blood [code = Practice glucose, fingerstick, blood] Diagnostic Test 2022-02-25 hemoglobin A1C, [facility] amil Pending 00:00:00 fingerstick [code = Practice hemoglobin A1C, fingerstick] Future Appointment 2022-04-08 Patricia Anand [facility] 13:45:[address] Practice [address], [place] [address] Future Appointment 2022-04-08 Patricia Anand [facility] 00:00:[address] Practice [address], [place] [address] Encounters Start End Encounter Admission Attending Care Care Encounter Source Date/Time Date/Time Type Type Clinicians Facility Department ID 2021-08-29 Outpatient MDA MDA [id number] 17:47:06 Anderso n 2022-03-24 2022-03-24 Outpatient Daniel_T VFP VFP [id number] 3-20 [facility] 00:00:00 00:00:00 [id number] Family Practic e 2022-03-16 2022-03-16 Outpatient Daniel_T VFP VFP [id number] 3-20 [facility] 00:00:00 00:00:00 [id number] Family Practic e 2022-02-25 2022-02-25 Outpatient Daniel_T VFP VFP [id number] 10-13 [facility] 00:00:00 00:00:00 [id number] Family Practic e 2022-02-25 2022-02-25 Immanuel VFP [place] - [id number] V illage 00:00:00 00:00:00 Juancarlos [facility] Family [facility] Practi [place]marie HU: [id number] VM_HOU_Shad e [facility] [place] [facility], [address], [place] [address] , Ph. 2022-01-30 2022-01-30 Outpatient [facility] [id number] 10-13 [facility] 10:09:00 10:09:00 [id number] Family Practic e Results Test Description Test Time Test Comments Results Result Comments Source Hemoglobin A1c measurement device panel 2022-02-25 14:46:36 Test Item Value Reference Range Interpretation Comme nts Hemoglobin A1c/Hemoglobin.total in Blood (test code = 4548-4) 11.4 % 5.7-6.4 [facility] in Capillary [id number] 14:44:18 Test Item Value Reference Range Interpretation Comments Blood Glucose: mg/dl (test code = Blood 296 Glucose: mg/dl) [facility]
[2022-04-03] MEDS ORDERED: VANCOMYCIN 1 GM/VIAL ONE (14:22)
[2022-04-03] MEDS ORDERED: NA CHLORIDE 0.9% 250 ML ONE (14:23)
[2022-04-03] MEDS ORDERED: NA CHLORIDE 0.9% 100 ML ONE (14:23)
[2022-04-03] MEDS ORDERED: NA CHLORIDE 0.9% 2,000 ML ONE (14:23)
[2022-04-03] MEDS ORDERED: ONDANSETRON 4 MG/2 ML VIAL ONE ×2 (14:23→18:52)
[2022-04-03] MEDS ORDERED: PIPERACIL/TAZO 3.375 GM VIAL IV ONE (14:23)
[2022-04-03] MEDS ORDERED: NA CHLORIDE 0.9% 1,000 ML ONE (14:26)
[2022-04-03 14:41] LABS: Absolute Lymphocytes (CBC) 2.7 K/uL (0.7-4.9); Hematocrit 39.8 % (36.0-45.0); Lymphocytes % 12.2 % (15.3-44.8); MPV 8.9 fL (7.6-11.3); RBC Red Blood Cell Count 4.79 M/uL (3.86-4.86)
[2022-04-03 14:45] LABS: Urine Blood Negative (Negative); Urine Glucose Negative (Negative); Urine Protein Trace (Negative); Urine Specific Gravity 1.025 (1.005-1.030); Urine pH 5.5 (5.0-7.0)
[2022-04-03 14:54] LABS: Urine Bacteria <20 /HPF (<20); Urine Mucus Slight /HPF (None Seen); Urine RBC <5 /HPF (None Seen)
[2022-04-03 14:55] LABS: Albumin 3.4 g/dL (3.4-5.0); Bilirubin Total 0.6 mg/dL (0.2-1.0); Potassium 3.4 mmol/L (3.5-5.1); Protein, Total 7.2 g/dL (6.4-8.2)
[2022-04-03 15:15] LABS: Platelet Estimate ADEQ; Toxic Granulation 1+
[2022-04-03 15:16] LABS: Blood Morphology Comment NOT SEEN (NOT SEEN)
[2022-04-03 15:18] LABS: SARS-CoV-2 Antigen Rapid Res Negative (Negative)
[2022-04-03] MEDS ORDERED: PROMETHAZINE INJ 25 MG/ML AMP ONE (15:37)
[2022-04-03] MEDS ORDERED: FENTANYL CITR 100 MCG/2 ML ONE (15:38)
--- NOTE | 2022-04-03 15:54 | ER ---
Nurse's Notes [facility] Name: Karen Lyons Age: 61 yrs Sex: Female : 1960 Arrival Date: 04/03/2022 Time: 13:15 Bed 2 Private MD: Diagnosis: Cellulitis of the Left Breast;Sepsis, unspecified organism Presentation: 04/03 13:58 Chief complaint: Patient states: This morning my left breast is swollen and reddened. ld1 Pt reports having breast cancer and had a lumpectomy on my left breast. C/O left breast pain, nausea, chills, fever. Pt reports having a 101 fever at home - took 4 tylenol prior to arrival. Coronavirus screen: At this time, the client does not indicate any symptoms associated with coronavirus-19. Ebola Screen: No symptoms or risks identified at this time. Risk Assessment: Do you want to hurt yourself or someone else? Patient reports no desire to harm self or others. Onset of symptoms was April 03, 2022. 13:58 Method Of Arrival: Ambulatory ld1 13:58 Acuity: TONYA 3 ld1 13:58 Initial Sepsis Screen: Does the patient meet any 2 criteria? RR > 20 per min. Temp ld1 <36.0*C (96.8*F)) or > 38.3*C (100.9*F). HR > 90 bpm. Yes Does the patient have a suspected source of infection? Yes: Skin breakdown/wound If YES to both, name of provider notified: Kamaljit Soria DO Triage Assessment: 14:02 General: Appears in no apparent distress. comfortable, Behavior is calm, cooperative, ld1 appropriate for age. Pain: Complains of pain in left breast Pain does not radiate. Pain currently is 9 out of 10 on a pain scale. Quality of pain is described as throbbing. EENT: No signs and/or symptoms were reported regarding the EENT system. Neuro: Level of Consciousness is awake, alert, obeys commands, Oriented to person, place, time, Appropriate for age. Cardiovascular: Capillary refill < 3 seconds Patient's skin is warm and dry. Respiratory: Airway is patent Respiratory effort is even, unlabored. GI: Abdomen is round non-distended. : No signs and/or symptoms were reported regarding the genitourinary system. Derm: No signs and/or symptoms reported regarding the dermatologic system. Musculoskeletal: No signs and/or symptoms reported regarding the musculoskeletal system. Historical: - Allergies: 14:02 Latex, Natural Rubber; ld1 - PMHx: 14:02 Cancer, Breast; Diabetes - NIDDM; ld1 - PSHx: 14:02 Total abdominal hysterectomy; ld1 - Immunization history:: Adult Immunizations up to date, Client reports receiving the 2nd dose of the Covid vaccine. - Social history:: Smoking status: Patient denies any tobacco usage or history of. Patient/guardian denies using alcohol. Screenin:05 Abuse screen: Denies threats or abuse. Denies injuries from another. Nutritional ph screening: No deficits noted. Tuberculosis screening: No symptoms or risk factors identified. Fall Risk None identified. Assessment: 14:15 General: Appears uncomfortable, Behavior is calm, cooperative, Reports chills for 0-12 aa5 hours, fever for 0-12 hours. Pain: Complains of pain in left breast Pain does not radiate. Pain currently is 7 out of 10 on a pain scale. Quality of pain is described as tender, Pain began today Is continuous, Aggravated by touch. Neuro: Level of Consciousness is awake, alert, obeys commands, Oriented to person, place, time, situation. Cardiovascular: Heart tones S1 S2 present Rhythm is regular. Respiratory: Airway is patent Respiratory effort is even, unlabored, Respiratory pattern is regular, symmetrical. GI: Abdomen is round Bowel sounds present X 4 quads. Abd is soft and non tender X 4 quads. : No signs and/or symptoms were reported regarding the genitourinary system. EENT: No signs and/or symptoms were reported regarding the EENT system. Derm: Skin is pink, warm \T\ dry. Redness noted to left breast, left breast hot to touch and tender to touch, pt denies any bleeding, denies any drainage to left breast. Musculoskeletal: Range of motion: intact in all extremities. 14:40 Reassessment: Patient is alert, oriented x 3, equal unlabored respirations, skin aa5 warm/dry/pink. 15:40 Reassessment: Patient is alert, oriented x 3, equal unlabored respirations, skin aa5 warm/dry/pink. pt c/o pain to left breast and nausea, PLAY BACK OPERATOR was notified. . 16:20 Reassessment: Pt resting with eyes closed, easy to awaken to verbal stimuli, pt reports aa5 pain and nausea have decreased, states feeling better. Pt notified of wait time for bed assignment. . Cardiovascular: Rhythm is sinus rhythm. Respiratory: Airway is patent Respiratory effort is relaxed, Respiratory pattern is regular, symmetrical. Derm: Skin is pink, warm \T\ dry. 17:00 Reassessment: Resting in bed with eyes closed, respirations are relaxed. . aa5 18:00 Reassessment: Pt reports she ate dinner and tolerated well. . aa5 18:37 Reassessment: Dr. Moraes (pt's PCP) at bedside. Pt c/o headache and c/o nausea, Dr. Moraes aa5 ordered Zofran and Tylenol. . 19:30 Reassessment: Patient is alert, oriented x 3, equal unlabored respirations, skin bb warm/dry/pink. pt moved to room 408 via wheelchair accompanied by this RN and family. Bedside report given to Sima RN on arrival. Vital Signs: 13:58 BP 110 / 85; Pulse 112; Resp 20; Temp 98.9(O); Pulse Ox 97% on R/A; Weight 103.87 kg; ld1 Height 5 ft. 3 in. (160.02 cm); Pain 9/10; 16:20 BP 127 / 61; Pulse 92; Resp 18 S; Temp 98.9(O); Pulse Ox 99% on R/A; aa5 17:07 BP 126 / 81; Pulse 88; Resp 16; Pulse Ox 99% on R/A; ph 18:30 BP 131 / 69; Pulse 98; Resp 16 S; Temp 98.6(TE); Pulse Ox 100% on R/A; aa5 13:58 Body Mass Index 40.56 (103.87 kg, 160.02 cm) ld1 ED Course: 13:15 Patient arrived in ED. rg4 13:15 [facility] jh7 13:15 Kamaljit Soria DO is Attending Physician. jh7 14:01 Triage completed. ld1 14:02 Arm band placed on right wrist. ld1 14:09 Chelsey Crystal, RN is Primary Nurse. aa5 14:30 Inserted saline lock: 20 gauge in right antecubital area, using aseptic technique. IV aa5 inserted by RADHA Woodall. 14:30 Initial lab(s) drawn, by earth science laboratory technician, sent to lab. aa5 14:30 1st set of blood cultures collected by earth science laboratory technician and 2nd set collected by thermal technician. aa5 15:00 No provider procedures requiring assistance completed. aa5 15:13 Chest Single View XRAY In Process Unspecified. EDMS 15:23 US Extrmty Nonvasular Limited In Process Unspecified. EDMS 15:52 Sergio Larkin is Hospitalizing Provider. [facility] 16:02 Hospitalizing Provider role handed off by Sergio Larkin [facility] 16:02 Mayank Moraes MD is Hospitalizing Provider. [facility] 16:30 PHCP role handed off by La Theodore FNP [facility] 16:30 Humphrey Sears PA is PHCP. [facility] 17:05 Patient has correct armband on for positive identification. Bed in low position. Call ph light in reach. Side rails up X2. Client placed on continuous cardiac and pulse oximetry monitoring. NIBP monitoring applied. Door closed. Noise minimized. Lights dimmed. Warm blanket given. 19:00 Report given to Jc RN and Miracle RN. aa5 19:30 Patient admitted, IV remains in place. bb Administered Medications: 14:40 Drug: NS 0.9% (30 ml/kg) 30 ml/kg Route: IV; Rate: bolus; Site: right antecubital; aa5 16:34 Follow up: IV Status: Completed infusion; IV Intake: 2000ml ; Only 2000mls administered aa5 per PLAY BACK OPERATOR 14:40 Drug: Zofran (Ondansetron) 4 mg Route: IVP; Site: right antecubital; aa5 15:00 Follow up: Response: No adverse reaction aa5 14:40 Drug: Zosyn (piperacillin-tazobactam) 3.375 grams Route: IVPB; Infused Over: 60 mins; aa5 Site: right antecubital; 15:40 Follow up: Response: No adverse reaction; IV Status: Completed infusion aa5 15:40 Drug: vancoMYCIN 1 grams Route: IVPB; Infused Over: 2 hrs; Site: right antecubital; aa5 15:50 Follow up: Response: No adverse reaction aa5 17:40 Follow up: Response: No adverse reaction; IV Status: Completed infusion aa5 15:45 Drug: Phenergan (promethazine) 12.5 mg Route: IVP; Site: right antecubital; ph 16:22 Follow up: Response: No adverse reaction aa5 15:51 Drug: fentaNYL (PF) 50 mcg Route: IVP; Site: right antecubital; ph 16:22 Follow up: Response: No adverse reaction; RASS: Drowsy (-1) aa5 18:50 Drug: Zofran (Ondansetron) 4 mg Route: IVP; Site: right antecubital; aa5 19:00 Follow up: Response: No adverse reaction aa5 18:50 Drug: Tylenol 500 mg Route: PO; aa5 Medication: 17:05 VIS not applicable for this client. ph Intake: 16:34 IV: 2000ml; Total: 2000ml. aa5 Outcome: 15:53 Decision to Hospitalize by Provider. 7 19:21 Patient left the ED. iw 19:30 Admitted to Tele accompanied by nurse, family with patient, via wheelchair, room 408, bb with chart. 19:30 Condition: stable Signatures: Dispatcher [employer] EDMS Humphrey Sears PA PA jmm Ballard, Brenda, RN RN bb Maggie Lanier RN MINERVA Chelsey Crystal RN MINERVA aa5 Sanaz Mullins RN RN ph Garcia, Rubi rg4 Dibbern, Lauren, RN RN ld1 La Theodore, PATIENT TRANSPORTATION DRIVER PATIENT TRANSPORTATION DRIVER 7 Corrections: (The following items were deleted from the chart) 14:02 13:58 Pulse 112bpm; Resp 20bpm; Pulse Ox 97% RA; Temp 98.9F Oral; 103.87 kg; Height 5 ld1 ft. 3 in.; BMI: 40.5; Pain 9/10; ld1 14:29 13:58 Initial Sepsis Screen: Does the patient meet any 2 criteria? No. Patient's ld1 initial sepsis screen is negative. Does the patient have a suspected source of infection? No. Patient's initial sepsis screen is negative. ld1 16:24 16:20 Pulse 92bpm; Resp 18bpm; Spontaneous; Pulse Ox 99% RA; Temp 98.9F Oral; aa5 aa5 16:33 15:15 vancoMYCIN 1 grams IVPB in right antecubital over 2 hrs ph aa5 16:34 16:34 IV Status: Completed infusion; IV Intake: 2000ml aa5 aa5 19:42 14:15 Derm: Skin is pink, warm \T\ dry. aa5 aa5
--- NOTE | 2022-04-03 15:54 | EDPHYS ---
Physician Documentation [facility] Name: Karen Lyons Age: 61 yrs Sex: Female : 1960 Arrival Date: 04/03/2022 Time: 13:15 Bed 2 Private MD: ED Physician Kamaljit Soria HPI: 04/03 14:05 This 61 yrs old Black Female presents to ER via Ambulatory with complaints of Breast jh7 Problem. 14:05 Onset: The symptoms/episode began/occurred last night. Associated signs and symptoms: jh7 Pertinent positives: fever, Pertinent negatives: abdominal pain, chest pain, shortness of breath. Patient reports severe left breast swelling, redness, and tenderness starting last night. Reports that she had a fever of 101.8 at home, and took tylenol MANUFACTURING COORDINATOR. States that she took a COVID test at home and it was negative. She has a history of breast cancer in 1999 that has been in remission since then. Also reports a history of diabetes.. Historical: - Allergies: 14:02 Latex, Natural Rubber; ld1 - PMHx: 14:02 Cancer, Breast; Diabetes - NIDDM; ld1 - PSHx: 14:02 Total abdominal hysterectomy; ld1 - Immunization history:: Adult Immunizations up to date, Client reports receiving the 2nd dose of the Covid vaccine. - Social history:: Smoking status: Patient denies any tobacco usage or history of. Patient/guardian denies using alcohol. ROS: 15:46 Eyes: Negative for injury, pain, redness, and discharge, Neck: Negative for injury, jh7 pain, and swelling, Cardiovascular: Negative for chest pain, palpitations, and edema, Respiratory: Negative for shortness of breath, cough, wheezing, and pleuritic chest pain, Abdomen/GI: Negative for abdominal pain, nausea, vomiting, diarrhea, and constipation, Back: Negative for injury and pain, MS/Extremity: Negative for injury and deformity, Neuro: Negative for headache, weakness, numbness, tingling, and seizure. 15:46 Constitutional: Positive for chills, fever. 15:46 Skin: Positive for cellulitis, erythema, swelling. 15:46 All other systems are negative. Exam: 14:25 ECG was reviewed by the Attending Physician. ms3 15:46 Chest/axilla: Breasts: cellulitis, that is severe, tenderness, that is moderate, of the jh7 left breast, No nipple discharge, induration, or palpable mass noted. 15:46 Constitutional: This is a well developed, well nourished patient who is awake, alert, jh7 and in no acute distress. 15:46 Head/Face: Normocephalic, atraumatic. Eyes: Pupils equal round and reactive to light, jh7 extra-ocular motions intact. Lids and lashes normal. Conjunctiva and sclera are non-icteric and not injected. Cornea within normal limits. Periorbital areas with no swelling, redness, or edema. ENT: Nares patent. No nasal discharge, no septal abnormalities noted. Oropharynx with no redness, swelling, or masses, exudates, or evidence of obstruction, uvula midline. Mucous membranes moist. Cardiovascular: Regular rate and rhythm with a normal S1 and S2. No gallops, murmurs, or rubs. Normal PMI, no JVD. No pulse deficits. Respiratory: Lungs have equal breath sounds bilaterally, clear to auscultation and percussion. No rales, rhonchi or wheezes noted. No increased work of breathing, no retractions or nasal flaring. Abdomen/GI: Soft, non-tender, with normal bowel sounds. No distension or tympany. No guarding or rebound. No evidence of tenderness throughout. Back: No spinal tenderness. No costovertebral tenderness. Full range of motion. 15:46 MS/ Extremity: Pulses equal, no cyanosis. Neurovascular intact. Full, normal range of motion. Neuro: Awake and alert, GCS 15, oriented to person, place, time, and situation. Motor strength 5/5 in all extremities. Sensory grossly intact. Normal gait. 15:46 Skin: cellulitis, that is severe, on the left breast. Vital Signs: 13:58 BP 110 / 85; Pulse 112; Resp 20; Temp 98.9(O); Pulse Ox 97% on R/A; Weight 103.87 kg; ld1 Height 5 ft. 3 in. (160.02 cm); Pain 9/10; 16:20 BP 127 / 61; Pulse 92; Resp 18 S; Temp 98.9(O); Pulse Ox 99% on R/A; aa5 17:07 BP 126 / 81; Pulse 88; Resp 16; Pulse Ox 99% on R/A; ph 18:30 BP 131 / 69; Pulse 98; Resp 16 S; Temp 98.6(TE); Pulse Ox 100% on R/A; aa5 13:58 Body Mass Index 40.56 (103.87 kg, 160.02 cm) ld1 MDM: 14:03 Patient medically screened. [facility] 15:46 Differential diagnosis: bacterial infection, Inflammatory breast cancer, cellulitis, [facility] breast abscess. Data reviewed: vital signs, nurses notes, lab test result(s), radiologic studies, doppler, plain films. Data interpreted: Pulse oximetry: is 97 %. Interpretation: normal. Physician consultation: Ian Hemphill MD was called at 15:20, was contacted at 15:20, regarding patient's condition, Advised admission and IV antibiotics. Stated that he would pass off the information to Dr. Bowen who is on tomorrow.. 04/03 14:01 Order name: Blood Culture Adult (2) [facility] 04/03 14:01 Order name: CBC with Diff; Complete Time: 15:24 [facility] 04/03 14:01 Order name: CMP; Complete Time: 14:57 [facility] 04/03 14:01 Order name: Lactate; Complete Time: 14:57 [facility] 04/03 14:01 Order name: Protime (+inr); Complete Time: 16:34 [facility] 04/03 14:01 Order name: Ptt, Activated; Complete Time: 16:34 [facility] 04/03 14:01 Order name: Urine Microscopic Only; Complete Time: 14:57 [facility] 04/03 14:45 Order name: Urine Dipstick-Ancillary; Complete Time: 14:50 [facility] 04/03 14:46 Order name: Glucose, Ancillary Testing; Complete Time: 14:50 [facility] 04/03 14:48 Order name: SARS RAPID; Complete Time: 15:24 [facility] 04/03 15:16 Order name: Manual Differential; Complete Time: 15:24 [facility] 04/03 18:02 Order name: Basic Metabolic Panel [facility] 04/03 18:02 Order name: Basic Metabolic Panel [facility] 04/03 18:02 Order name: CBC with Automated Diff [facility] 04/03 14:01 Order name: Chest Single View XRAY; Complete Time: 16:20 [facility] 04/03 14:01 Order name: Accucheck; Complete Time: 14:44 [facility] 04/03 14:01 Order name: Cardiac monitoring; Complete Time: 14:44 [facility] 04/03 14:01 Order name: US Extrmty Nonvasular Limited; Complete Time: 16:13 [facility] 04/03 17:21 Order name: Diet Ada 1800 Antolin; Complete Time: 17:22 aa5 04/03 18:02 Order name: CONS Physician Consult [facility] 04/03 18:02 Order name: 60g Consistent Carbohydrate (ADA 1800/2000) [facility] 04/03 18:02 Order name: CBC with Automated Diff [facility] 04/03 14:01 Order name: EKG - Nurse/Tech; Complete Time: 14:44 [facility] 04/03 14:01 Order name: IV Saline Lock - Large Bore; Complete Time: 14:44 [facility] 04/03 14:01 Order name: Labs collected and sent; Complete Time: 14:44 [facility] 04/03 14:01 Order name: O2 Per Protocol; Complete Time: 14:44 [facility] 04/03 14:01 Order name: O2 Sat Monitoring; Complete Time: 14:44 [facility] EC:25 Rate is 99 beats/min. Rhythm is regular. QRS [place] is Normal. [place] interval is normal. ms3 Clinical impression: Normal ECG. Interpreted by me. Reviewed by me. Administered Medications: 14:40 Drug: NS 0.9% (30 ml/kg) 30 ml/kg Route: IV; Rate: bolus; Site: right antecubital; aa5 16:34 Follow up: IV Status: Completed infusion; IV Intake: 2000ml ; Only 2000mls administered aa5 per PAYROLL TECHNICIAN 14:40 Drug: Zofran (Ondansetron) 4 mg Route: IVP; Site: right antecubital; aa5 15:00 Follow up: Response: No adverse reaction aa5 14:40 Drug: Zosyn (piperacillin-tazobactam) 3.375 grams Route: IVPB; Infused Over: 60 mins; aa5 Site: right antecubital; 15:40 Follow up: Response: No adverse reaction; IV Status: Completed infusion aa5 15:40 Drug: vancoMYCIN 1 grams Route: IVPB; Infused Over: 2 hrs; Site: right antecubital; aa5 15:50 Follow up: Response: No adverse reaction aa5 17:40 Follow up: Response: No adverse reaction; IV Status: Completed infusion aa5 15:45 Drug: Phenergan (promethazine) 12.5 mg Route: IVP; Site: right antecubital; ph 16:22 Follow up: Response: No adverse reaction aa5 15:51 Drug: fentaNYL (PF) 50 mcg Route: IVP; Site: right antecubital; ph 16:22 Follow up: Response: No adverse reaction; RASS: Drowsy (-1) aa5 18:50 Drug: Zofran (Ondansetron) 4 mg Route: IVP; Site: right antecubital; aa5 19:00 Follow up: Response: No adverse reaction aa5 18:50 Drug: Tylenol 500 mg Route: PO; aa5 Disposition: 16:22 Co-signature as Attending Physician, Kamaljit Soria DO I agree with the assessment and ms3 plan of care. Disposition Summary: 04/03/22 15:53 Hospitalization Ordered Hospitalization Status: Inpatient Admission [facility] Location: Telemetry/MedSur (Inpatient) [facility] Condition: Stable [facility] Problem: new [facility] Symptoms: are unchanged [facility] Bed/Room Type: Standard [facility] Provider: Mayank Moraes(04/03/22 16:03) [facility] Room Assignment: [facility](04/03/22 18:29) Diagnosis - Cellulitis of the Left Breast [facility] - Sepsis, unspecified organism [facility] Forms: - Medication Reconciliation Form [facility] - SBAR form [facility] Signatures: Dispatcher [employer] EDMS Nina Christian Diana, RN RN dw Mickail, Joel, PA PA jmm Calderon, Audri, RN RN aa5 Sanaz Mullins RN RN ph Sims, Marcus, DO DO ms3 Kathrin Choudhary RN RN ld1 La Theodore FNP CANCELLATION CLERK [facility] Corrections: (The following items were deleted from the chart) 15:47 14:05 Patient reports severe left breast swelling, redness, and tenderness starting [facility] last night. Reports that she had a fever of 101.8 at home, and took tylenol MANUFACTURING COORDINATOR. States that she took a COVID test at home and it was negative.. [facility] 16:03 15:53 Sergio Larkin [place] [address] 16:07 15:46 Chest/axilla: Breasts: cellulitis, that is severe, jh7 jh7 18: 15:53 jh7 18 18:[address] [place] [address]
--- NOTE | 2022-04-03 16:11 | RAD REPORT ---
EXAM DESCRIPTION: US - Extremity Nonvascular Limited - 04/03/2022 3:33 pm CLINICAL HISTORY: L breast cellulitis vs. abscess. hx of breast CA COMPARISON: No comparisons FINDINGS: Sonographic evaluation of the periareolar left breast soft tissues performed. Retroareolar dilated ducts are identified. There are edematous changes in the breast tissues more pronounced in t he 6 o'clock periareolar region. However, there is no defined abscess or drainable fluid collection i dentifiable. IMPRESSION: Infectious/inflammatory findings are evident in the left breast. At this time, no absces s or drainable fluid collection is defined.
--- NOTE | 2022-04-03 16:16 | RAD REPORT ---
EXAM DESCRIPTION: RAD - Chest Single View - 04/03/2022 3:11 pm CLINICAL HISTORY: MALAISE COMPARISON: Portable 11/03/2018, 03/12/2018 TECHNIQUE: AP portable chest image was obtained 04/03/2022 3:11 pm . FINDINGS: Lung volumes are low. Under penetrated technique, shallow inspiration and large body habit us are all limiting factors. No acute lung parenchymal process suspected. No suspicious mass or acute infiltrates seen. A few small areas of nodularity are present and not clearly different from prior i maging. These are accentuated by the low lung volumes. Lung base atelectasis seen. Heart and vasculature are normal. No measurable pleural effusion and no pneumothorax. No acute bony a bnormality seen. No acute aortic findings suspected. IMPRESSION: No acute cardiopulmonary process. Limited low lung volume examination not significantly different from comparison.
[2022-04-03 16:33] LABS: Protime INR 1.03
[2022-04-03] MEDS ORDERED: ONDANSETRON 4 MG/2 ML VIAL IV PRN (17:58)
[2022-04-03] MEDS ORDERED: PIPER TAZO 3.375 GM in NA CHLORIDE 0.9% 100 ML IV SCH (18:00)
[2022-04-03] MEDS ORDERED: D50W 25 GM/50 ML SYRINGE IV PRN (18:01)
[2022-04-03] MEDS ORDERED: GLUCAGON 1 MG/VIAL IM PRN ×2 (18:01→18:02)
[2022-04-03] MEDS ORDERED: DEXTROSE 10%-WATER 500 ML IV BAG IV PRN (18:08)
[2022-04-03] MEDS ORDERED: ACETAMINOPHEN 500 MG TAB ONE (18:52)
[2022-04-03] MEDS: INSULIN -REGULAR HUMAN 50 UNIT/0.5 ML ML SQ SCH (21:00)
[2022-04-03] MEDS: MORPHINE 2 MG/ML SYR IV PRN (21:07)
[2022-04-03] MEDS: PIPER TAZO 3.375 GM in NA CHLORIDE 0.9% 100 ML IV SCH (21:48)
[2022-04-03] MEDS: ENOXAPARIN 40 MG/0.4 ML SQ SCH (21:49)
[2022-04-03] MEDS: ATORVASTATIN 20 MG TAB PO SCH (21:49)
[2022-04-03 22:13] VITALS: BMI 40.5
[2022-04-04 03:50] LABS: Absolute Lymphocytes (CBC) 2.1 K/uL (0.7-4.9); Hematocrit 36.1 % (36.0-45.0); Lymphocytes % 15.7 % (15.3-44.8); MCV 83.3 fL (80-100); MPV 8.4 fL (7.6-11.3); RBC Red Blood Cell Count 4.33 M/uL (3.86-4.86)
[2022-04-04 04:06] LABS: Potassium 3.8 mmol/L (3.5-5.1)
[2022-04-04] MEDS: ACETAMINOPHEN 500 MG TAB PO PRN ×2 (05:40→14:41)
[2022-04-04] MEDS: MORPHINE 2 MG/ML SYR IV PRN ×4 (05:41→21:31)
[2022-04-04] MEDS: PIPER TAZO 3.375 GM in NA CHLORIDE 0.9% 100 ML IV SCH ×3 (05:41→21:37)
[2022-04-04] MEDS: INSULIN -REGULAR HUMAN 50 UNIT/0.5 ML ML SQ SCH ×5 (07:30→21:39)
[2022-04-04] MEDS: ASPIRIN EC 81 MG TAB PO SCH (08:47)
[2022-04-04] MEDS: METFORMIN ER 500 MG TAB PO SCH (08:47)
[2022-04-04] MEDS: INSULIN GLARGINE 100 UNIT/ML SQ SCH (08:48)
[2022-04-04] MEDS ORDERED: POTASSIUM CL SA 10 MEQ TAB PO ONE (09:00)
[2022-04-04 09:10] VITALS: O2SAT 96
--- NOTE | 2022-04-04 10:56 | P.CNS ---
Date of Consult: 04/04/22 PC: I was asked to see this 61-year-old female who has a history of lumpectomy with axillary node dissection who presented to the emergency room with a severe sore pain and swelling in her left breast. HPC: Patient has had the surgery done a number of years ago. Most recently she noticed that her breast started to swell, became quite painful, and she could feel a lot of heat in it. She came to the emergency room for evaluation and treatment. PSHx: Previous left breast lumpectomy with axillary node dissection. Completed her chemotherapy a good number of years ago. Her most recent mammogram was done a year ago. Social Hx: States she is allergic to latex Sys R: No cough, wheeze, shortness of breath. No chest pain or palpitations. Denies any urinary complaints. Says she has been in pretty good health. O/E: Awake alert comfortable vital signs are stable HEENT: Negative Chest: Air entry equal bilaterally Breast: On inspection of the left breast 1 can obviously see an area of erythema it extends for about 80% of the body of the breast. It seems to be more located inferiorly. The skin itself shows some edema, but not intense peau d'orange. No area of skin cracking around the nipple or on the skin is observed. Abd: Negative [place]: Left axilla is clear no adenopathy no associated erythema lumps or masses Data: Presented with a markedly elevated white cell count, today has reduced considerably Impression: Cellulitis and a breast that has been treated with chemotherapy and has had a extensive [patient states 54] lymph nodes removed. Plan: Patient already feels better today. I was unable to write a note last night. But today her breast appears to be improved, less erythema, less heat. Recommended continue IV antibiotics. This will most likely resolve on its own. There is no evidence of abscess formation seen on the ultrasound that has already been done. Follow-up can be obtained post hospital stay, back with her oncology team and primary care physician.
--- NOTE | 2022-04-04 13:57 | EKG ---
Test Date: 2022-04-03 Test Time: 14:25:36 Plant Puller: KATHI MEASUREMENT RESULTS: Intervals: Rate: 99 NV: 150 QRSD: 72 QT: 340 QTc: 436 [place]: P: 74 NV: 150 QRS: 43 T: 32 INTERPRETIVE STATEMENTS: Normal sinus rhythm Normal ECG Compared to ECG 11/03/2018 10:29:53 No significant changes Electronically Signed On 04-04-22 13:55:29 CDT by Jaime José
--- NOTE | 2022-04-04 19:25 | PN ---
Date of Progress Note: 04/04/2022 Subjective: Patient was seen this morning for followup. No new complaints or problems reported by h er. She is afebrile this morning. No shortness of breath. No nausea. No vomiting. Objective: Vital signs: Reviewed. HEENT: Unremarkable. Heart: Sounds normal. Abdomen: Soft. Bowel sounds normal. No guarding, rigidity, tenderness, or distention. Extremities: No leg edema. Breasts: Patient's was present in the room with her and breast examination was done in prese nce of her and it was limited to inspection only and inspection of left breast shows the area of cellulitis from left breast is better today than yesterday. Laboratory Data: White count 13.2, hemoglobin 11.7, platelets 261. Sodium 138, potassium 3.8, chlor king 106, bicarb 26, BUN 11, creatinine 0.82, glucose 231. Impression: 1.Left breast mastitis. 2.Type 2 diabetes mellitus, uncontrolled. 3.Hypertension. 4.Hyperlipidemia. 5.Left breast cancer. Plan: We will go ahead and continue current medication. Continue current antibiotic, which is IV Zo syn. We will repeat blood work tomorrow morning. Continue current DVT prophylaxis and diabetes management. Possible discharge to go home tomorrow with oral antibiotics, Augmentin. SATINDER/MODL Voice ID: [id number] Report ID: [id number]
[2022-04-04] MEDS: ATORVASTATIN 20 MG TAB PO SCH (21:39)
[2022-04-04] MEDS: ENOXAPARIN 40 MG/0.4 ML SQ SCH (21:39)
--- NOTE | 2022-04-04 23:25 | HP ---
Date of Admission: 04/03/2022 Chief Complaint: Fever, chills, pain, and redness of left breast. History Of Present Illness: A 61-year-old female patient who woke up this morning with fever, chills , and reported that she had some pain in her left breast, so when she looked at her left breast, monica campbell entire left breast was red. Denies any fall injury. There is no open wound on the surface of the left breast. She contacted office with this complaint and she was advised to come to emergency room . After she was evaluated in the ER, she was admitted to the hospital. I saw her in the emergency r oom. Allergies: NO KNOWN ALLERGIES. Medications: Aspirin 81 mg daily, atorvastatin 20 mg daily, gabapentin 300 mg 2 times a day, Toujeo insulin 60 units subcutaneous injection daily, Januvia 100 mg daily, metformin, and Farxiga 5 mg nae y. Review of Systems: Constitutional: As mentioned above. Dermatology: As mentioned above. All other systems reviewed and negative. 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 Blair, who is managing her diabetes medications, hypertension, mixed hyperlipidemia, and left breast cancer. Past Surgical History: Left breast lumpectomy in 2002, appendectomy, partial resection of colon due to intraabdominal adhesions, appendectomy, and hysterectomy. Family History: Not pertinent. Social History: Prior history of smoking, but quit long time ago. Negative for alcohol use. Physical Examination: Vital Signs: When she first came into the hospital emergency room, temperature 98.6, pulse 103, resp iratory rate 18, blood pressure 124/58, oxygen saturation 96%. Height 5 feet 3 inches, weight 229 po unds. General: Awake, alert, oriented, not in distress. HEENT: Head atraumatic, normocephalic. Conjunctivae nonerythematous. Sclerae white. Mouth, no thr ush or edema noted. Ears/Nose, no mass, lesion, discharge noted. Neck: Supple. No JVD, lymph nodes, bruit, thyromegaly noted. Lungs: Bilateral good equal air entry. Clear to auscultation. No rhonchi. No rales. Heart: Normal heart sounds, no murmur or gallop. Abdomen: Soft, bowel sounds normal. No guarding, rigidity, tenderness, mass, hepatosplenomegaly, dis tention, or bruit noted. Extremities: No leg edema. No calf tenderness. Skin: No rash, ulcer, cellulitis. Lymphatics: No lymph node enlargement in neck, supraclavicular, infraclavicular region. Neuro: No focal neurological deficit. Chest: Unremarkable. External Genitalia: Deferred. Rectal: Deferred. Breasts: Examination was done in the emergency room in presence of nurse, Chelsey, and right breast ap pears normal except one faint pink linear area across the right breast, but the left breast exam is s ignificant for redness of almost entire left breast with some induration and tenderness. There is no discharge from nipple. No bleeding. No open wound. Laboratory Data: White count 22.5, hemoglobin 12.8, and platelet count of 309. Sodium 137, potassiu m 3.4, chloride 103, bicarb 25, BUN 16, creatinine 0.98, glucose 199. Liver function tests unremarka ble. COVID- 19 test negative. Urinalysis: Trace blood, trace ketones. Chest x-ray, no acute cardi opulmonary changes. Ultrasound of left breast does not show any evidence of abscess. Impression: 1.Left breast mastitis. 2.Hypokalemia. 3.Type 2 diabetes mellitus, uncontrolled. 4.Hypertension. 5.Mixed hyperlipidemia. 6.Left breast cancer. Plan: We will go ahead and admit the patient to hospital for further evaluation and management of th is problem. The patient is appropriate for inpatient and [facility] DVT prophylaxis will be given using Lovenox. Home medications will be continued per order. Diab etes will be managed with insulin per order. I will go ahead and repeat blood work tomorrow morning. General surgeon, Dr. Bowen will be consulted. The patient's last mammogram was in November of this y ear and her mammogram was normal. She received 1 dose of Zosyn and vancomycin in the emergency room and upon admission, we will just continue Zosyn by itself. Details and plan of treatment discussed w ith her and I will see her tomorrow morning for followup. SATINDER/MODL Voice ID: [id number]
[2022-04-05] MEDS: ACETAMINOPHEN 500 MG TAB PO PRN (03:25)
[2022-04-05] MEDS: PIPER TAZO 3.375 GM in NA CHLORIDE 0.9% 100 ML IV SCH (05:23)
[2022-04-05] MEDS: INSULIN -REGULAR HUMAN 50 UNIT/0.5 ML ML SQ SCH (07:30)
[2022-04-05] MEDS ORDERED: MAGNESIUM HYDROXIDE 8% 30 ML PO ONE (08:00)
[2022-04-05 08:53] VITALS: BP 131/67; TEMP 97.9
[2022-04-05] MEDS: INSULIN GLARGINE 100 UNIT/ML SQ SCH (09:00)
[2022-04-05] MEDS: METFORMIN ER 500 MG TAB PO SCH (10:08)
[2022-04-05] MEDS: MORPHINE 2 MG/ML SYR IV PRN (10:08)
[2022-04-05] MEDS: ASPIRIN EC 81 MG TAB PO SCH (10:08)
--- NOTE | 2022-04-05 12:10 | DS ---
Date of Discharge: 04/05/2022 Disposition: Discharged to go home. Physical Examination: HEENT: Unremarkable. Lungs: Clear to auscultation. Heart: Sounds normal. Abdomen: Soft. Bowel sounds normal. No guarding, rigidity, tenderness, distention. Extremities: No leg edema. Breasts: Her breast examination which was limited to inspection only was done in presence of her patrica rommel Wen who was in the room with her and right breast shows that faint pink color linear area t hat she has almost resolved and left breast redness is significantly better compared to what it was a t the time of admission. Laboratory Data: Upon admission; white count 22.5, hemoglobin 12.8, platelets 309, and repeat white count yesterday 13.2, hemoglobin 11.7, platelets 261. Upon admission; chemistry showed sodium 137, p otassium 3.4, chloride 103, bicarb 25, BUN 16, creatinine 0.98, glucose 199. Liver function tests un remarkable. Lactic acid 1.4 and yesterday sodium 138, potassium 3.8, chloride 106, bicarb 26, BUN 11 , creatinine 0.82, glucose 239. Wound blood culture remains negative. Discharge Medications And Instructions: 1.Continue all prior home medications. 2.Follow up at my office a week after. 3.Take Augmentin 875 mg 2 times a day with food for 10 days. 4.Take Zofran 4 mg 4 times a day as needed for nausea and vomiting. 5.Use Tylenol 500 mg 1 tablet and Motrin 200 mg 2 tablets by mouth every 6 hours as needed for pain. Hospital Course: This is a 61-year-old pleasant female patient, who came into emergency room with co mplaints of pain in her left breast associated with redness of the left breast, fever, and chills. P gabe see dictated H and P for more information. After the patient was evaluated in the emergency ro om, she was admitted to the hospital with cellulitis/mastitis of left breast. Dr. Hemphill from [facility] was consulted. Left breast ultrasound did not show any evidence of abscess. The patient received 1 dose of vancomycin in the emergency room and Zosyn and after she was admitted, we continue d Zosyn by itself without any vancomycin. She has remained afebrile. Her white count has come down to normal and overall she feels better. She has not had a bowel movement in last 3 to 4 days and Usman vallejo advised her to take milk of magnesia 30 cc by mouth daily as needed and may use prunes or prune j uice at home as needed. Overall, the patient's condition has improved very well and today she will b e discharged to go home in stable condition with above-mentioned medication and instructions. Final Diagnoses: 1.Left breast cellulitis/mastitis. 2.Hypokalemia. 3.Type 2 diabetes mellitus, uncontrolled. 4.Hypertension. 5.Mixed hyperlipidemia. 6.Left breast cancer. SATINDER/MODL Voice ID: [id number] Report ID: [id number]
== END 2022-04-05 10:55 | disposition home or self-care (01) | DRG 601 ==
LOC: ER 13:13 → ERHOLD 17:59 → 4TH 19:17
PROVIDERS: ADMIT Internal Medicine; ATTEND Internal Medicine
DX: N61.0 Mastitis without abscess (principal); E87.6 Hypokalemia; E11.65 Type 2 diabetes mellitus with hyperglycemia; I10 Essential (primary) hypertension; E78.2 Mixed hyperlipidemia; Z85.3 Personal history of malignant neoplasm of breast; Z79.82 Long term (current) use of aspirin; Z79.4 Long term (current) use of insulin; Z79.84 Long term (current) use of oral hypoglycemic drugs; Z79.899 Other long term (current) drug therapy; Z91.040 Latex allergy status; Z90.710 Acquired absence of both cervix and uterus; Z90.49 Acquired absence of other specified parts of digestive tract; Z87.891 Personal history of nicotine dependence; Z20.822 Contact with and (suspected) exposure to COVID-19
CPT/HCPCS: 36415; 71045; 76882; 80048; 80053; 81003; 81015; 82947; 83605; 85025; 85610; 85730; 87040; 87811; 93005; 96365; 96366; 96367; 96368; 96375; 99285; J1650; J2270; J2405; J2543; J2550; J3010; J3370; J7030; J7050

== ENCOUNTER 2022-04-21 16:05 | Inpatient (IN) | payer OTHER ==
--- OUTSIDE RECORDS SUMMARY | 2022-04-21 16:09 | XMS REPORT | Continuity of Care Document ---
:1960 Author Organization [facility] t Address [address] [place] [address] [place] [id number] Care Team Providers Name Role Phone Danis Attending Clinician Unavailable Danis Admitting Clinician Unavailable Payers Payer Name Policy Type Policy Number Effective Date Expiration Date [facility] [id number] (PPO) Problems Condition Condition Condition Status Onset Resolution Last Treating Co mments Source Name Details Category Date Date Treatment Clinician Date Sepsis Sepsis Problem Active [facility] 9-13 Family 00:00: Practic 00 e Tinea Tinea Problem Active [facility] cruris Cruris 9-13 Family 00:00: Practic 00 e Body mass Body Mass Problem Active Kevin veronica index 30+ Index 30+ 8-02 Fami ly - obesity - Obesity 00:00: Prac tic 00 e Morbid Morbid Problem Active [facility] obesity Obesity 8-02 Family 00:00: Practic 00 e Type 2 Type 2 Problem Active [facility] diabetes Diabetes 8-02 Family mellitus Mellitus 00:00: Practi c 00 e Allergies, Adverse Reactions, Alerts Allergy Allergy Status Severity Reaction(s) Onset Inactive Treating Comm ents Source Name Type Date Date Clinician Romana Allergy Active Moderate Other Villag e to [...] BREATHING BREATHING DIFFICULTY BREATHING atorvastati atorvastati No atorvastat Village n 20 mg n 20 mg in 20 mg Famil y tablet TAKE tablet TAKE tablet Practic 1 TABLET BY 1 TABLET BY TAKE 1 e MOUTH ONCE MOUTH ONCE TABLET BY DAILY WITH DAILY WITH MOUTH ONCE EVENING EVENING DAILY WITH MEAL MEAL EVENING MEAL BD BD No BD Village Ultra-Fine Ultra-Fine Ultra-Fine Family Short Pen Short Pen Short Pen Practic Needle 31 Needle 31 Needle 31 e gauge x gauge x gauge x 12/09" USE 12/09" USE 12/09" USE DIRECTED DIRECTED 4 TIMES 4 TIMES DIRECTED 4 DAILY DAILY TIMES DAILY benzonatate benzonatate No benzonatat [facility] 100 mg 100 mg e 100 mg Family capsule capsule capsule Practi c TAKE 1 TAKE 1 TAKE 1 e CAPSULE BY CAPSULE BY CAPSULE BY MOUTH EVERY MOUTH EVERY MOUTH 8 HOURS 8 HOURS EVERY 8 NEEDED FOR NEEDED FOR HOURS COUGH COUGH NEEDED FOR COUGH Easy Touch Easy Touch No Easy Touch Village 31 gauge x 31 gauge x 31 gauge x Family 10/09" 10/09" 10/09" Practic needle USE needle USE needle USE e DIRECTED DIRECTED FOUR TIMES FOUR TIMES DIRECTED DAILY DAILY FOUR TIMES DAILY Flovent HFA Flovent HFA No Flovent [facility] 44 44 HFA 44 Family mcg/actuati mcg/actuati mcg/actuat Practic on aerosol on aerosol ion e inhaler inhaler aerosol INHAL 1 TO INHAL 1 TO inhaler 2 PUFFS 2 PUFFS INHAL 1 TO EVERY 12 EVERY 12 2 PUFFS HOURS RINSE HOURS RINSE EVERY 12 MOUTH AFTER MOUTH AFTER HOURS USE USE RINSE MOUTH AFTER USE fluconazole fluconazole No fluconazol [facility] 150 mg 150 mg e 150 mg Family tablet TAKE tablet TAKE tablet Practic 1 TABLET BY 1 TABLET BY TAKE 1 e MOUTH ONCE MOUTH ONCE TABLET BY A WEEK A WEEK MOUTH ONCE A WEEK FreeStyle FreeStyle No FreeStyle Village Viviana 2 Viviana 2 Viviana 2 Family Sensor kit Sensor kit Sensor kit Practic USE USE USE e DIRECTED DIRECTED DIRECTED BUT CHANGE BUT CHANGE BUT CHANGE EVERY 14 EVERY 14 EVERY 14 DAYS DAYS DAYS gabapentin gabapentin No gabapentin [facility] 300 mg 300 mg 300 mg Family capsule capsule capsule Practi c TAKE 1 TAKE 1 TAKE 1 e CAPSULE BY CAPSULE BY CAPSULE BY MOUTH TWICE MOUTH TWICE MOUTH DAILY DAILY TWICE DAILY Guaiatussin Guaiatussin No Guaiatussi [facility] AC 10 AC 10 n AC 10 Family mg-100 mg/5 mg-100 mg/5 mg-100 Practic mL oral mL oral mg/5 mL e liquid TAKE liquid TAKE oral BY MOUTH 1 BY MOUTH 1 liquid TEASPOONFUL TEASPOONFUL TAKE BY EVERY 6 EVERY 6 MOUTH 1 HOURS HOURS TEASPOONFU NEEDD FOR NEEDD FOR L EVERY 6 COUGH COUGH HOURS NEEDD FOR COUGH Humalog Humalog No Chano Leger (U-100) (U-100) (U-100) Practi c Insulin [...] TIMES DAILY WITH MEAL Humalog Humalog No Chano Leger U-200 U-200 U-200 Practic Insulin 200 Insulin 200 Insulin e unit/mL (3 unit/mL (3 200 mL) mL) unit/mL (3 subcutaneou subcutaneou mL) s Give s Give subcutaneo before before us Give meals for meals for before glucose glucose meals for >200 using >200 using glucose CF 1:30: CF 1:30: >200 using TDD 50 TDD 50 CF 1:30: TDD 50 ivermectin ivermectin No ivermectin [facility] 3 mg tablet 3 mg tablet 3 mg F amily TAKE 7 TAKE 7 tablet Practic TABLET BY TABLET BY TAKE 7 e MOUTH EVERY MOUTH EVERY TABLET BY DAY FOR 5 DAY FOR 5 MOUTH DAYS DAYS EVERY DAY FOR 5 DAYS meloxicam meloxicam No meloxicam [facility] 15 mg 15 mg 15 mg Family tablet TAKE tablet TAKE tablet Practic 1 TABLET BY 1 TABLET BY TAKE 1 e MOUTH DAILY MOUTH DAILY TABLET BY WITH FOOD WITH FOOD MOUTH DAILY WITH FOOD metformin metformin No 1 BID metformin [facility] ER 500 mg ER 500 mg ER [...] 30 days. 30 days. for 30 days. metformin metformin No metformin [facility] ER 500 mg ER 500 mg ER 500 mg Family tablet,exte tablet,exte tablet,ext Practic nded nded ended e release 24 release 24 release 24 hr TAKE 1 hr TAKE 1 hr TAKE 1 TABLET BY TABLET BY TABLET BY MOUTH TWICE MOUTH TWICE MOUTH DAILY WITH DAILY WITH TWICE MEALS MEALS DAILY WITH MEALS nystatin nystatin No nystatin Kevin veronica 100,000 100,000 100,000 Family unit/gram unit/gram unit/gram Practic topical topical topical e cream APPLY cream APPLY cream TO THE TO THE APPLY TO AFFECTED AFFECTED THE AREA(S) BY AREA(S) BY AFFECTED TOPICAL TOPICAL AREA(S) BY ROUTE 2 ROUTE 2 TOPICAL TIMES PER TIMES PER ROUTE 2 DAY DAY TIMES PER DAY nystatin nystatin No nystatin Kevin veronica 100,000 100,000 100,000 Family unit/gram unit/gram unit/gram Practic topical topical topical e powder powder powder APPLY TO APPLY TO APPLY TO THE THE THE AFFECTED AFFECTED AFFECTED AREA(S) BY AREA(S) BY AREA(S) BY TOPICAL TOPICAL TOPICAL ROUTE 2 ROUTE 2 ROUTE 2 TIMES PER TIMES PER TIMES PER DAY DAY DAY ondansetron ondansetron No ondansetro [facility] 4 mg 4 mg n 4 mg Family disintegrat disintegrat disintegra Practic ing tablet ing tablet ting e DISSOLVE 1 DISSOLVE 1 tablet TABLET IN TABLET IN DISSOLVE 1 MOUTH EVERY MOUTH EVERY TABLET IN 6 HOURS 6 HOURS MOUTH NEEDED FOR NEEDED FOR EVERY 6 NAUSEA OR NAUSEA OR HOURS VOMITING VOMITING NEEDED FOR NAUSEA OR VOMITING OneTouch OneTouch No OneTouch Kevin veronica Delica Plus Delica Plus Delica Family Lancet 33 Lancet 33 Plus Pract ic gauge gauge Lancet 33 e gauge OneTouch OneTouch No OneTouch Kevin veronica Verio test Verio test Verio test Family strips USE strips USE strips USE Practic TO TEST TO TEST TO TEST e BLOOD BLOOD BLOOD GLUCOSE GLUCOSE GLUCOSE THREE TIMES THREE TIMES THREE DAILY FOR DAILY FOR TIMES 30 DAYS 30 DAYS DAILY FOR 30 DAYS oseltamivir oseltamivir No oseltamivi [facility] 75 mg 75 mg r 75 mg Family capsule capsule capsule Practi c TAKE 1 TAKE 1 TAKE 1 e CAPSULE BY CAPSULE BY CAPSULE BY MOUTH TWICE MOUTH TWICE MOUTH DAILY FOR 5 DAILY FOR 5 TWICE DAYS DAYS DAILY FOR 5 DAYS Ozempic Ozempic No Ozempic Villag e 0.25 mg or 0.25 [...] Pepcid AC No 1 BID Pepcid AC Village 20 mg 20 mg 20 mg Family tablet Take tablet Take tablet Practic 1 tablet 1 tablet Take 1 e twice a day twice a day tablet by oral by oral twice a route. route. day by oral route. [facility] U-300 U-300 U-300 Family SoloStar SoloStar SoloStar Pra ctic 300 unit/mL 300 unit/mL 300 e (3 mL) (3 mL) unit/mL (3 subcutaneou subcutaneou mL) s insulin s insulin subcutaneo pen GIVE 30 pen GIVE 30 us insulin UNITS AND UNITS AND pen GIVE INCREASE INCREASE 30 UNITS DIRECTED DIRECTED AND TOTAL DAILY TOTAL DAILY INCREASE DOSE 100 DOSE 100 UNITS UNITS DIRECTED TOTAL DAILY DOSE 100 UNITS Immunizations Ordered Immunization Filled Immunization Date Status Commen ts Source Name Name COVID-19, mRNA, COVID-19, mRNA, 2020-08-14 Completed [facility] Family LNP-S, PF, 100 LNP-S, PF, 100 00:00:00 Practi ce mcg/0.5 mL dose mcg/0.5 mL dose (Moderna) (Moderna) influenza, influenza, 2020-08-14 Completed [facility] Family unspecified unspecified 00:00:00 Practice formulation formulation Vital Signs Vital Name Observation Time Observation Value Comments Source BP Diastolic 2022-04-08 00:00:00 71 mm[Hg] [facility] Practice Height 2022-04-08 00:00:00 65 [in_i] [facility] BMI (Body Mass 2022-04-08 00:00:00 38.9 kg/m2 [facility] Family Index) Practice BP Systolic 2022-04-08 00:00:00 109 mm[Hg] [facility] Body Weight 2022-04-08 00:00:00 234 [lb_av] [facility] BP Diastolic 2022-02-25 00:00:00 71 mm[Hg] [facility] Height 2022-02-25 00:00:00 65 [in_i] [facility] BMI (Body Mass 2022-02-25 00:00:00 39.1 kg/m2 [facility] Family Index) Practice BP Systolic 2022-02-25 00:00:00 122 mm[Hg] [facility] Body Weight 2022-02-25 00:00:00 235 [lb_av] [facility] Procedures Procedure Date / Time Performed Performing Clinician Sourc e [facility] Surgery 2011-07-27 00:00:00 Rachael carpenter (Gynecology) Practice Lumpectomy 1999-07-27 00:00:00 Rachael carpenter Practice Plan of Care Planned Activity Planned Date Details Comments Source Diagnostic Test 2022-04-08 glucose, [facility] Rya carpenter Pending 00:00:00 fingerstick, blood Practice [code = glucose, fingerstick, blood] Future Appointment 2022-06-08 Immanuel Blair Rosana Leger 00:00:[id number]; [address], [place] [address] Encounters Start End Encounter Admission Attending Care Care Encounter Source Date/Time Date/Time Type Type Clinicians Facility Department ID 2021-08-29 Outpatient MDA SHELLY [id number] 17:47:06 Anderso n 2022-04-17 2022-04-17 Outpatient Daniel_T VFP VFP [id number] [address] 00:00:00 00:00:00 [id number] Family Practic e 2022-04-10 2022-04-10 Outpatient Daniel_T VFP VFP [id number] [address] 00:00:00 00:00:00 [id number] Family Practic e 2022-04-08 2022-04-08 Outpatient Daniel_T VFP VFP [id number] [address] 00:00:00 00:00:00 [id number] Family Practic e 2022-04-08 2022-04-08 Immanuel VFP [place] - [id number] V illage 00:00:00 00:00:00 [facility] - Practi rosemarie MD: [id number] VM_HOAlfie_Steve e [address], [address], [place] [address] , Ph. 2022-03-24 2022-03-24 Outpatient Daniel_T VFP VFP [id number] [address] [facility] 00:00:00 00:00:00 [id number] Family Practic e 2022-03-16 2022-03-16 Outpatient Daniel_T VFP VFP [id number] [facility] 00:00:00 00:00:00 [id number] Family Practic e 2022-02-25 2022-02-25 Outpatient Daniel_T VFP VFP [id number] [facility] 00:00:00 00:00:00 [id number] Family Practic e 2022-02-25 2022-02-25 Immanuel VFP [place] - [id number] V illage 00:00:00 00:00:00 [facility] - Pracyony houston MD: [id number] [email or web address]_Steve e [address] [facility], [address], [place] [address] , Ph. 2022-01-30 2022-01-30 Outpatient Daniel_T VFP VFP [id number] [facility] 10:09:00 10:09:00 [id number] Family Practic e Results Test Description Test Time Test Comments Results Result Comments Source Glucose [Mass/volume] in Capillary blood 2022-04-08 15:05:43 Test Item Value Reference Range Interpretation Comme nts Blood Glucose: mg/dl (test code = Blood Glucose: mg/dl) [address] [facility] [id number] 14:46:36 Test Item Value Reference Range Interpretation Comments Hemoglobin A1c/Hemoglobin.total in 11.4 % 5.7-6.4 Blood (test code = 4548-4) [facility]Mass/volume] in Capillary [id number] 14:44:18 Test Item Value Reference Range Interpretation Comments Blood Glucose: mg/dl (test code = Blood 296 Glucose: mg/dl) [facility]
[2022-04-21] MEDS ORDERED: VANCOMYCIN 1 GM/VIAL ONE (16:49)
[2022-04-21] MEDS ORDERED: MORPHINE 4 MG/ML SYR ONE (16:49)
[2022-04-21] MEDS ORDERED: NA CHLORIDE 0.9% 1,000 ML ONE (16:50)
[2022-04-21] MEDS ORDERED: NA CHLORIDE 0.9% 500 ML ONE (16:50)
[2022-04-21] MEDS ORDERED: VANCOMYCIN 500 MG/VIAL ONE (16:50)
[2022-04-21] MEDS ORDERED: PROMETHAZINE INJ 25 MG/ML AMP ONE (16:52)
[2022-04-21] MEDS ORDERED: PIPERACIL/TAZO 3.375 GM VIAL IV ONE (17:02)
[2022-04-21] MEDS ORDERED: NA CHLORIDE 0.9% 100 ML ONE (17:02)
--- NOTE | 2022-04-21 17:20 | RAD REPORT ---
EXAM DESCRIPTION: RAD - Chest Single View - 04/21/2022 4:59 pm CLINICAL HISTORY: sepsis COMPARISON: Portable 04/03/2022 TECHNIQUE: AP portable chest image was obtained 04/21/2022 4:59 pm . FINDINGS: Lungs are clear. Heart and vasculature are normal. No measurable pleural effusion and no p neumothorax. No acute bony abnormality seen. No acute aortic findings suspected. IMPRESSION: No acute cardiopulmonary process. No significant change from comparison study.
--- NOTE | 2022-04-21 18:11 | EDPHYS ---
Physician Documentation [facility] Name: Karen Lyons Age: 61 yrs Sex: Female : 1960 Arrival Date: 04/21/2022 Time: 16:07 Bed 16 Private MD: Mila Moraes C ED Physician Kamaljit Soria HPI: 04/21 17:52 This 61 yrs old Black Female presents to ER via Ambulatory with complaints of Breast snw Problem, Fever, chills. 17:52 Patient presents to ED for recheck of: pt with recent cellulitis of left breast, area snw became painful and red again today. The affected area is on the left breast. Previous treatment: as noted. The patient has experienced a previous episode. The patient has been recently seen by a physician: the patient's primary care provider, Dr. Moraes. Historical: - Allergies: 16:24 Latex, Natural Rubber; jl7 - PMHx: 16:24 Cancer, Breast; Diabetes - NIDDM; jl7 - PSHx: 16:24 Total abdominal hysterectomy; jl7 - Immunization history:: Client reports receiving the 2nd dose of the Covid vaccine. - Social history:: Smoking status: Patient denies any tobacco usage or history of. ROS: 17:49 Constitutional: Negative for fever, chills, and weight loss, Eyes: Negative for injury, snw pain, redness, and discharge, ENT: Negative for injury, pain, and discharge, Neck: Negative for injury, pain, and swelling. 17:49 Respiratory: Negative for shortness of breath, cough, wheezing, and pleuritic chest pain, Abdomen/GI: Negative for abdominal pain, nausea, vomiting, diarrhea, and constipation, Back: Negative for injury and pain, MS/Extremity: Negative for injury and deformity, Skin: Negative for injury, rash, and discoloration, Neuro: Negative for headache, weakness, numbness, tingling, and seizure, Psych: Negative for depression, anxiety, suicide ideation, homicidal ideation, and hallucinations. 17:49 Cardiovascular: Positive for palpitations. 17:49 Cardiovascular: Positive for pt with throbbing to left breast, noted the entire left breast has become red again s/p improvement with iv/po abx. Pt was recently discharged from hospital (2 weeks ago) for cellulitis to left breast with sepsis. Exam: 16:47 Constitutional: This is a well developed, well nourished patient who is awake, alert, snw and in no acute distress. Head/Face: Normocephalic, atraumatic. Eyes: Pupils equal round and reactive to light, extra-ocular motions intact. Lids and lashes normal. Conjunctiva and sclera are non-icteric and not injected. Cornea within normal limits. Periorbital areas with no swelling, redness, or edema. ENT: Nares patent. No nasal discharge, no septal abnormalities noted. Tympanic membranes are normal and external auditory canals are clear. Oropharynx with no redness, swelling, or masses, exudates, or evidence of obstruction, uvula midline. Mucous membranes moist. Neck: Trachea midline, no thyromegaly or masses palpated, and no cervical lymphadenopathy. Supple, full range of motion without nuchal rigidity, or vertebral point tenderness. No Meningismus. 16:47 Respiratory: Lungs have equal breath sounds bilaterally, clear to auscultation and percussion. No rales, rhonchi or wheezes noted. No increased work of breathing, no retractions or nasal flaring. Abdomen/GI: Soft, non-tender, with normal bowel sounds. No distension or tympany. No guarding or rebound. No evidence of tenderness throughout. Back: No spinal tenderness. No costovertebral tenderness. Full range of motion. MS/ Extremity: Pulses equal, no cyanosis. Neurovascular intact. Full, normal range of motion. Neuro: Awake and alert, GCS 15, oriented to person, place, time, and situation. Cranial nerves II-XII grossly intact. Motor strength 5/5 in all extremities. Sensory grossly intact. Cerebellar exam normal. Normal gait. 16:47 Chest/axilla: Inspection: Cellulitis of almost entire left breast with mild peeling, no nipple dc. Pt admitted for sepsis two weeks ago. 16:47 Cardiovascular: Rate: tachycardic, Pulses: no pulse deficits are appreciated, Heart sounds: normal. 16:47 Skin: Appearance: Color: erythematous, Temperature: warm, Moisture: dry, mild edema, mild dimpling. Vital Signs: 16:19 BP 114 / 68; Pulse 120; Resp 17; Temp 98.2; Pulse Ox 95% ; Weight 104.33 kg; Height 5 jl7 ft. 5 in. (165.10 cm); Pain 10/10; 17:30 BP 104 / 90; Pulse 103; Resp 17; Temp 98.9; Pulse Ox 97% ; db 18:00 BP 105 / 60; Pulse 106; Resp 20; Pulse Ox 96% on R/A; db 18:30 BP 99 / 53; Pulse 99; Resp 16; Pulse Ox 96% on R/A; db 19:51 BP 104 / 55; Pulse 94; Resp 17; Pulse Ox 94% on R/A; vc1 16:19 Body Mass Index 38.27 (104.33 kg, 165.10 cm) jl7 MDM: 16:44 Data reviewed: vital signs, nurses notes. Data interpreted: Pulse oximetry: on room air snw is 95 %. Interpretation:. 16:50 Patient medically screened. snw 18:09 Physician consultation: A Dimitry HU was called at 18:09, was contacted at 18:09, snw regarding admission, to the medical/surgical unit. would like medications started, Levaquin 750mg iv daily. 20:25 Physician consultation: and will see patient in ED. snw 23:14 ED course: Dr. Hemphill consulted at 2145 re: retro areolar abscess. Pt will be NPO post snw MN and he will see her in the morning. 04/21 16:36 Order name: Blood Culture Adult (2) snw 04/21 16:36 Order name: CBC with Diff; Complete Time: 18:35 snw 04/21 16:36 Order name: CMP; Complete Time: 18:58 snw 04/21 16:36 Order name: Lactate; Complete Time: 18:01 snw 04/21 16:36 Order name: Protime (+inr); Complete Time: 18:40 snw 04/21 16:36 Order name: Ptt, Activated; Complete Time: 18:40 snw 04/21 16:36 Order name: Urine Culture snw 04/21 16:36 Order name: Urine Microscopic Only; Complete Time: 21:46 snw 04/21 16:36 Order name: Chest Single View XRAY; Complete Time: 17:22 snw 04/21 16:46 Order name: BREAST/AXILLA, COMPLETE; Complete Time: 19:21 EDMS 04/21 18:12 Order name: SARS RAPID; Complete Time: 19:21 snw 04/21 16:36 Order name: Accucheck; Complete Time: 17:24 w 04/21 16:36 Order name: Cardiac monitoring; Complete Time: 17:00 w 04/21 16:36 Order name: EKG - Nurse/Tech; Complete Time: 20:25 w 04/21 16:36 Order name: IV Saline Lock - Large Bore; Complete Time: 17:24 snw 04/21 16:36 Order name: Labs collected and sent; Complete Time: 17:24 snw 04/21 16:36 Order name: O2 Per Protocol; Complete Time: 17:00 snw 04/21 16:36 Order name: O2 Sat Monitoring; Complete Time: 17:00 snw 04/21 17:34 Order name: Labs - recollect needed: recollect lav,blue and green top; Complete Time: bd 18:28 EC:25 Rate is 87 beats/min. Rhythm is regular. QRS [place] is Normal. DC interval is normal. QRS snw interval is normal. QT interval is normal. Clinical impression: Normal ECG. Administered Medications: 17:30 Drug: morphine 5 mg Route: IVP; Infused Over: 4 mins; Site: right antecubital; db 17:30 Drug: Phenergan (promethazine) 25 mg Route: IM; Site: right deltoid; db 17:30 Drug: Zosyn (piperacillin-tazobactam) 3.375 grams Route: IVPB; Infused Over: 60 mins; db Site: right hand; 18:40 Follow up: Response: No adverse reaction; IV Status: Completed infusion db 18:45 Drug: vancoMYCIN 1.5 grams Route: IVPB; Rate: calculated rate; Site: right hand; db 19:45 Drug: Lovenox (enoxaparin) 40 mg Route: Sub-Q; Site: right lower abdomen; vc1 19:45 Drug: Potassium Effervescent Tablet 50 mEq Route: PO; vc1 19:52 Drug: Potassium Chloride 20 mEq Route: IV; Rate: calculated rate; Site: right wrist; vc1 Disposition: 04/22 08:45 Co-signature as Attending Physician, Kamaljit REEVES was immediately available on-site ms3 in the Emergency Department for consultation in the care of the patient. . Disposition Summary: 04/21/22 18:11 Hospitalization Ordered Hospitalization Status: Inpatient Admission snw Provider: Mila Moraes Location: Telemetry/MedSur (Inpatient) snw Condition: Stable snw Problem: an acute exacerbation snw Symptoms: have worsened snw Bed/Room Type: Standard snw Room Assignment: 201(04/21/22 19:18) dw Diagnosis - Cellulitis of left breast - recurrent snw Forms: - Medication Reconciliation Form snw - SBAR form snw Signatures: Dispatcher [employer] EDNina Spring Diana RN MINERVA dw Terra Higgins, PRESS OPERATOR [employer] PRESS OPERATOR [employer] Nakul Gatica RN RN jl7 Kamaljit Soria DO DO ms3 Wendy Hodgse RN RN vc1 Ellen Villagomez RN RN db Corrections: (The following items were deleted from the chart) 04/21 17:33 17:32 Labs - recollect needed ordered. [facility] 19:18 18:11 snw dw
--- NOTE | 2022-04-21 18:11 | ER ---
Nurse's Notes [facility] Name: Karen Lyons Age: 61 yrs Sex: Female : 1960 Arrival Date: 04/21/2022 Time: 16:07 Bed 16 Private MD: Mila Moraes C Diagnosis: Cellulitis of left breast - recurrent Presentation: 04/21 16:19 Chief complaint: Patient states: Started with chills and fever at 1300, took 3 extra jl7 strength Tylenol, then took 3 Aleve at 1430, high temp 102.2, noticed swelling and redness to left breast, recently treated for cellulitis of left breast. Coronavirus screen: At this time, the client does not indicate any symptoms associated with coronavirus-19. Ebola Screen: No symptoms or risks identified at this time. Initial Sepsis Screen: Does the patient meet any 2 criteria? Temp <36.0*C (96.8*F)) or > 38.3*C (100.9*F). HR > 90 bpm. Yes Does the patient have a suspected source of infection? Yes: Skin breakdown/wound If YES to both, name of provider notified: Kamaljit Soria DO Risk Assessment: Do you want to hurt yourself or someone else? Patient reports no desire to harm self or others. Onset of symptoms was April 21, 2022. 16:19 Method Of Arrival: Ambulatory [facility] 16:19 Acuity: TONYA 2 jl7 Triage Assessment: 16:24 General: Appears in no apparent distress. uncomfortable, Behavior is calm, cooperative, jl7 agitated. Pain: Complains of pain in left breast Pain currently is 10 out of 10 on a pain scale. Historical: - Allergies: 16:24 Latex, Natural Rubber; jl7 - PMHx: 16:24 Cancer, Breast; Diabetes - NIDDM; jl7 - PSHx: 16:24 Total abdominal hysterectomy; jl7 - Immunization history:: Client reports receiving the 2nd dose of the Covid vaccine. - Social history:: Smoking status: Patient denies any tobacco usage or history of. Screenin:52 Abuse screen: Denies threats or abuse. Denies injuries from another. Nutritional db screening: No deficits noted. Tuberculosis screening: No symptoms or risk factors identified. Fall Risk None identified. No secondary diagnosis (0 pts). Ambulatory Aid- None/Bed Rest/Nurse Assist (0 pts). Gait- Normal/Bed Rest/Wheelchair (0 pts) Mental Status- Oriented to own ability (0 pts). Total Dumont Fall Scale indicates. Sepsis Screening: . Infection: Patient has suspected or documented infection. Assessment: 17:53 Reassessment: Patient appears in no apparent distress at this time. No changes from db previously documented assessment. Patient and/or family updated on plan of care and expected duration. Pain level reassessed. Patient is alert, oriented x 3, equal unlabored respirations, skin warm/dry/pink. Pain: Complains of pain in chest reddness and noted swelling. Neuro: No deficits noted. Cardiovascular: No deficits noted. Respiratory: No deficits noted. GI: No deficits noted. : No deficits noted. EENT: No deficits noted. Derm: Skin is red, Skin temperature is warm Wound noted chest redness. 17:55 Musculoskeletal: No deficits noted. db 17:55 Reassessment: lab at bedside for redraw of labs. Lab states need recollect due to db hemolysis. 18:48 Reassessment: Patient appears in no apparent distress at this time. No changes from db previously documented assessment. Patient and/or family updated on plan of care and expected duration. Pain level reassessed. Patient is alert, oriented x 3, equal unlabored respirations, skin warm/dry/pink. Reassessment: Patient states feeling better. 20:40 Reassessment: Patient and/or family updated on plan of care and expected duration. Pain vc1 level reassessed. Patient is alert, oriented x 3, equal unlabored respirations, skin warm/dry/pink. Pain: Complains of pain in left breast. Vital Signs: 16:19 BP 114 / 68; Pulse 120; Resp 17; Temp 98.2; Pulse Ox 95% ; Weight 104.33 kg; Height 5 jl7 ft. 5 in. (165.10 cm); Pain 10/10; 17:30 BP 104 / 90; Pulse 103; Resp 17; Temp 98.9; Pulse Ox 97% ; db 18:00 BP 105 / 60; Pulse 106; Resp 20; Pulse Ox 96% on R/A; db 18:30 BP 99 / 53; Pulse 99; Resp 16; Pulse Ox 96% on R/A; db 19:51 BP 104 / 55; Pulse 94; Resp 17; Pulse Ox 94% on R/A; vc1 16:19 Body Mass Index 38.27 (104.33 kg, 165.10 cm) jl7 ED Course: 16:07 Patient arrived in ED. am2 16:08 Mila Moraes MD is Private Physician. am2 16:24 Triage completed. jl7 16:24 Arm band placed on right wrist. jl7 16:27 Terra Higgins FNP-C [facility]. snw 16:27 Kamaljit Soria DO is Attending Physician. snw 16:42 Ellen Villagomez, RN is Primary Nurse. db 16:55 Missed attempt(s): 20 gauge in right antecubital area. db 17:00 Inserted saline lock: 20 gauge in right hand, using aseptic technique. Blood collected. db 17:01 Chest Single View XRAY In Process Unspecified. EDMS 17:51 Accessed Blood collected. 1st blood culture. db 18:10 Mila Moraes MD is Hospitalizing Provider. snw 18:33 BREAST/AXILLA, COMPLETE In Process Unspecified. EDMS 19:00 Patient has correct armband on for positive identification. Bed in low position. Call vc1 light in reach. Side rails up X2. Client placed on continuous cardiac and pulse oximetry monitoring. NIBP monitoring applied. 19:51 No provider procedures requiring assistance completed. Patient admitted, IV remains in vc1 place. 20:04 Primary Nurse role handed off by Ellen Villagomez, RN wm Administered Medications: 17:30 Drug: morphine 5 mg Route: IVP; Infused Over: 4 mins; Site: right antecubital; db 17:30 Drug: Phenergan (promethazine) 25 mg Route: IM; Site: right deltoid; db 17:30 Drug: Zosyn (piperacillin-tazobactam) 3.375 grams Route: IVPB; Infused Over: 60 mins; db Site: right hand; 18:40 Follow up: Response: No adverse reaction; IV Status: Completed infusion db 18:45 Drug: vancoMYCIN 1.5 grams Route: IVPB; Rate: calculated rate; Site: right hand; db 19:45 Drug: Lovenox (enoxaparin) 40 mg Route: Sub-Q; Site: right lower abdomen; vc1 19:45 Drug: Potassium Effervescent Tablet 50 mEq Route: PO; vc1 19:52 Drug: Potassium Chloride 20 mEq Route: IV; Rate: calculated rate; Site: right wrist; vc1 Medication: 19:51 VIS not applicable for this client. vc1 Outcome: 18:11 Decision to Hospitalize by Provider. snw 20:40 Admitted to Med/surg accompanied by tech, via wheelchair, room 201, Report called to socrates Howard RN 20:40 Condition: good 20:40 Instructed on the need for admit. 20:41 Patient left the ED. 1 Signatures: Dispatcher [employer] EDMS Terra Higgins, [employer] CH[employer] OFFBEARER-Csnw Nakul Gatica RN RN jl7 Doreen Muro Wendy Wendy Hodges RN RN vc1 Ellen Villagomez RN RN db
[2022-04-21 18:17] LABS: Absolute Lymphocytes (CBC) 2.1 K/uL (0.7-4.9); Hematocrit 34.8 % (36.0-45.0); Lymphocytes % 10.9 % (15.3-44.8); MCV 82.8 fL (80-100); MPV 8.6 fL (7.6-11.3)
[2022-04-21 18:38] LABS: Protime INR 1.19
[2022-04-21 18:49] LABS: Albumin 2.7 g/dL (3.4-5.0); Bilirubin Total 0.4 mg/dL (0.2-1.0); Protein, Total 5.8 g/dL (6.4-8.2)
--- NOTE | 2022-04-21 19:06 | RAD REPORT ---
EXAM DESCRIPTION: US - BREAST/AXILLA, COMPLETE - 04/21/2022 6:30 pm CLINICAL HISTORY: Cellulitis of the left breast COMPARISON: Ultrasound 04/03/2022 FINDINGS: Retroareolar and four-quadrant whole left breast sonography performed. Left breast tissue is diffusely edematous. In the retroareolar left breast there is a 2 centimeter ar ea of spiculated hypoechoic tissue at the subcutaneous fat - breast tissue interface. This is slightl y more pronounced than seen on the April 03 study. In the setting of breast infection, focal absce ss is suspected. In a patient with breast cancer history, continued follow-up is needed after medical management to assure complete resolution of this spiculated mass complex. Elsewhere in the left breast no other possible abscess or focal fluid collection. IMPRESSION: Suspected 2 centimeter retroareolar abscess. In a patient with a breast cancer history, continued close follow-up is needed to assure complete claudia aring of this focal abnormality.
[2022-04-21 19:13] LABS: SARS-CoV-2 Antigen Rapid Res Negative (Negative)
[2022-04-21] MEDS ORDERED: POTASSIUM 25 MEQ EFFERV TAB ONE (19:29)
[2022-04-21] MEDS ORDERED: KCL 20 MEQ/100 mL IVPB 100 ML IV ONE (19:30)
[2022-04-21] MEDS ORDERED: ENOXAPARIN 40 MG/0.4 ML SQ ONE (19:30)
[2022-04-21] MEDS: NA CHLORIDE 0.9% 1,000 ML IV SCH (21:03)
[2022-04-21] MEDS: Levofloxacin 750mg IV 750 MG/150 ML BAG IV SCH (21:14)
[2022-04-21] MEDS ORDERED: NA CHLORIDE 0.9% 500 ML IV ONE (21:54)
[2022-04-21] MEDS: HYDROCODONE/APAP 5/325 MG TAB PO PRN (21:59)
[2022-04-21 22:13] VITALS: BMI 38.2
[2022-04-22 06:14] LABS: Absolute Lymphocytes (CBC) 2.4 K/uL (0.7-4.9); Hematocrit 35.7 % (36.0-45.0); Lymphocytes % 19.7 % (15.3-44.8); MCV 83.8 fL (80-100); MPV 8.9 fL (7.6-11.3); RBC Red Blood Cell Count 4.26 M/uL (3.86-4.86)
--- NOTE | 2022-04-22 07:04 | HP ---
Date of Admission: 04/21/2022 Chief Complaint: Fever, chills, and redness of left breast. History Of Present Illness: Ms. Lyosn is a very pleasant 61-year-old female patient, who was admitt ed to the hospital earlier this month with left breast cellulitis and she was treated in the hospital with IV vancomycin and Zosyn. She was discharged to go home with oral Augmentin and she actually samuel d a followup visit at office today. The patient reported that the redness of the left breast had michelle ost completely resolved and all of a sudden today, she started to have fever and chills, and her left breast started to turn red, warm to touch, and she called office, and she was advised to come to [facility] room. After she was evaluated in the ER, she was admitted to the hospital. I saw her in the emergency room. Her daughter was present with her at bedside. Review of Systems: Constitutional: As mentioned above. Dermatology: As mentioned above. All other systems reviewed and negative. Allergies: NO KNOWN ALLERGIES. Medications: Augmentin 875 mg 2 times a day, aspirin 81 mg daily, atorvastatin 20 mg daily, Toujeo i nsulin 60 units daily, and metformin 500 mg 2 times a day. Past Medical History: Significant for type 2 diabetes mellitus, which is uncontrolled; mixed hyperli pidemia; hypertension; and left breast cancer. Past Surgical History: Significant for left breast lumpectomy and this was done in 2002, appendectom y, partial resection of colon due to intraabdominal adhesions, and hysterectomy. Family History: Not pertinent. Social History: Prior history of smoking, not at present time. Use of alcohol, negative. Physical Examination: Vital Signs: Temperature 97.5, pulse 87, respiratory rate 18, blood pressure 95/51, oxygen saturatio n 97%. Height 5 feet 5 inches, weight 230 pounds. General: Awake, alert, oriented, not in distress. HEENT: Head atraumatic, normocephalic. Conjunctivae nonerythematous. Sclerae white. Mouth, no thr ush or edema noted. Ears/Nose, no mass, lesion, discharge noted. Neck: Supple. No JVD, lymph nodes, bruit, thyromegaly noted. Lungs: Bilateral good equal air entry. Clear to auscultation. No rhonchi. No rales. Heart: Normal heart sounds, no murmur or gallop. Abdomen: Soft, bowel sounds normal. No guarding, rigidity, tenderness, mass, hepatosplenomegaly, dis tention, or bruit noted. Extremities: No leg edema. No calf tenderness. Skin: No rash, ulcer, cellulitis. Lymphatics: No lymph node enlargement in neck, supraclavicular, infraclavicular region. Neuro: No focal neurological deficit. Chest: Unremarkable. External Genitalia: Deferred. Rectal: Deferred. Breasts: Entire left breast, skin was pink in color. There was some skin peeling noted, which she h ad noted at home also. There was no evidence of any discharge. Skin was warm to touch. Breast exam ination was done in presence of patient's daughter as well as nurse practitioner, Sandra Thao. Laboratory Data: White count 19.5, hemoglobin 11.1, platelets 311. Chest x-ray, no acute cardiopulm onary changes. COVID-19 test negative. Sodium 140, potassium 3, chloride 111, bicarb 21, BUN 12, cr eatinine 0.67, glucose 213. Lactic acid 1.6. Liver function tests unremarkable. Ultrasound of the left breast shows approximately 2 cm collection in the left breast retroareolar reg ion. Impression: 1.Left breast abscess. 2.Cellulitis, left breast. 3.Hypokalemia. 4.Left breast cancer. 5.Hypertension. 6.Mixed hyperlipidemia. 7.Type 2 diabetes mellitus, uncontrolled. Plan: We will admit the patient to hospital for further evaluation and management of this problem. The patient is appropriate for inpatient and is expected to spend 2 midnights in the hospital. Consu General Surgeon, Dr. Sierra, who was consulted during her last hospital admission also. The lis ent received 1 dose of vancomycin and Zosyn in emergency room. We will go ahead and start her on Lev aquin 750 mg IV daily. We will give her IV fluid per order. DVT prophylaxis was ordered using Loven ox per order. Keep patient n.p.o. for possible surgical intervention in form of incision and drainag e tomorrow. Details and plan of treatment discussed with the patient. I will see her tomorrow bella briones for followup. SATINDER/MODL Voice ID: [id number]
[2022-04-22] MEDS ORDERED: D50W 25 GM/50 ML SYRINGE IV PRN (07:31)
[2022-04-22] MEDS ORDERED: GLUCAGON 1 MG/VIAL IM PRN (07:31)
[2022-04-22] MEDS ORDERED: DEXTROSE 10%-WATER 125 ML IV PRN (07:36)
[2022-04-22] MEDS: INSULIN -REGULAR HUMAN 50 UNIT/0.5 ML ML SQ SCH ×4 (08:59→21:30)
[2022-04-22] MEDS: NA CHLORIDE 0.9% 1,000 ML IV SCH ×2 (08:59→15:58)
[2022-04-22] MEDS: HYDROCODONE/APAP 5/325 MG TAB PO PRN ×3 (09:03→21:23)
[2022-04-22] MEDS: ONDANSETRON 4 MG/2 ML VIAL IV PRN ×2 (09:06→21:30)
[2022-04-22] MEDS ORDERED: MIDAZOLAM HCL 2 MG/2 ML INJ ONE (12:43)
[2022-04-22] MEDS ORDERED: KETOROLAC 30 MG/ML INJ ONE (12:43)
[2022-04-22] MEDS ORDERED: propofoL 200 MG/20 ML VIAL IV ONE (12:43)
[2022-04-22] MEDS ORDERED: LIDOCAINE 2% MPF 5 ML VIAL ONE (12:43)
[2022-04-22] MEDS ORDERED: FENTANYL CITR 100 MCG/2 ML ONE (12:43)
[2022-04-22] MEDS ORDERED: ONDANSETRON 4 MG/2 ML VIAL ONE (12:44)
--- NOTE | 2022-04-22 12:45 | P.CNS ---
Date of Consult: 04/22/22 PC: This 61-year-old female presented to the emergency room with pain in her left breast for diagnosis and treatment. HPC: Patient has been in the hospital about 2 weeks ago with a similar complaint. She had a marked amount of erythema on her left breast. No masses were palpable nor were any areas of fluctuance. She was treated with IV antibiotics, and discharged home on oral regime. She presents back now due to increasing pain and discomfort. PSHx: Total abdominal hysterectomy PMHx: Breast cancer [left breast] treated with chemotherapy a few years ago. Has done well since. [id number] diabetes Social Hx: Allergic to latex Sys R: No cough, wheeze or shortness of breath. No chest pain or palpitations. Denies urinary complaints. No breast discharge. O/E: Awake alert vital signs are stable HEENT: Within normal limits Chest: Air entry equal bilaterally Breast: Erythema of her left breast. However it is not tense like it was 2 weeks ago. Area of fluctuance behind the nipple. Abd: Negative [place]: Intact Data: Ultrasound demonstrates retroareolar abscess Impression: Abscess of left breast Plan: I will taken the operating room for a incision, drainage, sharp debridement of this left breast abscess. The risks of this procedure have been discussed. The possibility of bleeding, infection, and recurrence were explained. The need for follow-up, further x-rays and imaging modalities were explained. The possible need for further surgeries and procedures was discussed. She understands and wishes to proceed.
[2022-04-22] MEDS ORDERED: BUPIVACAINE 0.5% PF 10 ML VIAL ONE (12:46)
--- NOTE | 2022-04-22 13:40 | P.OP ---
Preoperative diagnosis: Abscess of the left breast Postoperative diagnosis: The same Primary procedure: Incision, drainage, sharp debridement of abscess of left breast Anesthesia: General Estimated blood loss: Sent 10 cc Specimen: Cultures both aerobic and anaerobic were sent Operative Technique: The patient brought the operating room and placed supine on the table. After the induction of adequate general endotracheal anesthesia, the area of the left breast was prepped and draped in the usual aseptic manner. Attention was turned towards area of the left breast. In the supra areolar area a skin incision was made at the junction of the skin with the areola. This was brought down through the full-thickness of the skin. At this point, having used a 16-gauge needle to find the fluid collection, we were able with a hemostat to enter this large cavity. We encountered some fluid in this area. Cultures both aerobic and anaerobic were taken. Gently probing the inside of this we could see there was no other areas that were fluctuant in this area. The area was debrided with 11 blade taking minimal tissue. A #2 nylon was now placed into the wound and brought out more laterally. The suture was tied on itself to keep it open and draining during the postoperative period. At the end of the procedure the patient was in a stable condition when sent to the recovery room. Needle sponge instrument count were correct Complications: None Drain(s): Other (2. Nylon) Transferred to: Recovery Room Condition: Good
[2022-04-22] MEDS ORDERED: ENOXAPARIN 40 MG/0.4 ML SQ SCH (17:00)
[2022-04-22] MEDS: Levofloxacin 750mg IV 750 MG/150 ML BAG IV SCH (21:29)
--- NOTE | 2022-04-22 22:58 | PN ---
Date of Progress Note: 04/22/2022 Subjective: The patient was seen this morning for followup. No new complaints or problems reported by her. Her daughter was present with her at bedside. Objective: Vital Signs: Reviewed. HEENT: Unremarkable. Lungs: Clear to auscultation. Heart: Sounds normal. Abdomen: Soft. Bowel sounds normal. No guarding, rigidity, tenderness, or distention. Extremities: No leg edema. Breasts: Limited to inspection of left breast, done in presence of her daughter, and exam findings r emains unchanged from yesterday. Laboratory Data: Today; white count 12.3, hemoglobin 11.4, platelets 273. Sodium 138, potassium 4, chloride 109, bicarb 24, BUN 13, creatinine 0.81, glucose 31. Impression: 1.Left breast abscess. 2.Cellulitis, left breast. 3.Diabetes mellitus, uncontrolled. Plan: We will go ahead and continue current antibiotic. The patient had incision and drainage done for left breast abscess today by Dr. Sierra and he did call and discuss details with me regarding op erative finding. Cultures were sent during surgery and I will see her tomorrow for followup. Ryan le discharge to go home tomorrow with oral antibiotics and Dr. Sierra has released her to go home fr om his point of view by tomorrow and he will see her at his office on Thursday. SATINDER/MODL Voice ID: [id number] Report ID: [id number]
[2022-04-23] MEDS: NA CHLORIDE 0.9% 1,000 ML IV SCH (03:16)
[2022-04-23] MEDS: HYDROCODONE/APAP 5/325 MG TAB PO PRN (08:52)
[2022-04-23] MEDS: INSULIN -REGULAR HUMAN 50 UNIT/0.5 ML ML SQ SCH (09:32)
[2022-04-23 10:23] VITALS: BP 131/62; TEMP 97.8; O2SAT 97
--- NOTE | 2022-04-23 13:10 | EKG ---
Test Date: 2022-04-21 Test Time: 20:25:25 Window Dresser: CAN MEASUREMENT RESULTS: Intervals: Rate: 87 TN: 160 QRSD: 72 QT: 362 QTc: 435 [place]: P: 68 TN: 160 QRS: 47 T: 43 INTERPRETIVE STATEMENTS: Normal sinus rhythm Normal ECG Compared to ECG 04/03/2022 14:25:36 No significant changes Electronically Signed On 04-23-22 13:06:15 CDT by Jaime José
--- NOTE | 2022-04-25 04:12 | DS ---
Date of Discharge: 04/23/2022 Disposition: Discharged to go home. Physical Examination: HEENT: Unremarkable. Lungs: Clear to auscultation. Heart: Sounds normal. Abdomen: Soft. Bowel sounds normal. No guarding, rigidity, tenderness, or distention. Extremities: No leg edema. Discharge Medications And Instructions: 1.Continue all prior home medications. 2.Take Levaquin 750 mg 1 tablet by mouth daily for 10 days. 3.Follow up with Dr. Sierra this week on Thursday which is day after tomorrow, and follow up at [facility] next week. Laboratory Data: Upon admission: White count 19.5, hemoglobin 11.1, platelets 311. Yesterday: Whi te count 12.3, hemoglobin 11.4, platelets 273. Upon admission: Sodium 140, potassium 3, chloride 11 1, bicarb 21, BUN 12, creatinine 0.67, glucose 213. Liver function tests unremarkable. Lactic acid 1.6. Yesterday: Sodium 138, potassium 4, chloride 109, bicarb 24, BUN 13, creatinine 0.81, glucose 319, magnesium 2. Hospital Course: This is a 61-year-old pleasant female patient, admitted to the hospital with fever, chills, and redness of her left breast. Please see dictated H and P for more information. After jus gudino was evaluated in the emergency room, she was admitted to the hospital with extensive cellulitis of her entire left breast and ultrasound of the left breast revealed 2 cm collection of fluid undern eath the left areola. This was concerning for left breast abscess. She was admitted to the hospital . She received 1 dose of Zosyn and vancomycin in the emergency room and when I was contacted for thi s admission, we decided to go ahead and start her on IV Levaquin 750 mg daily. General Surgeon, Dr. Sierra was consulted. The patient was kept n.p.o., and she had incision and drainage done for this breast abscess problem yesterday and very small amount of fluid was obtained, which was more like a h emorrhagic colored fluid. There was no pus collection. Culture was sent by Dr. Sierra, and she jaden l see her for followup day after tomorrow. Overall, the patient's condition has improved and she was discharged to go home in stable condition. Final Diagnoses: 1.Left breast sepsis. 2.Cellulitis, left breast. 3.Hypokalemia. 4.Left breast cancer. 5.Hypertension. 6.Mixed hyperlipidemia. 7.Type 2 diabetes mellitus, uncontrolled. SATINDER/MODL Voice ID: [id number] Report ID: [id number]
== END 2022-04-23 10:20 | disposition home or self-care (01) | DRG 855 ==
LOC: ER 16:05 → ERHOLD 18:24 → 2ND 20:06
PROVIDERS: ADMIT Internal Medicine; ATTEND Internal Medicine
PROC: 0JB60ZZ Excision of Chest Subcutaneous Tissue and Fascia, Open Approach (ICD-10-PCS; principal; 2022-04-22 12:30)
DX: A41.9 Sepsis, unspecified organism (principal); N61.0 Mastitis without abscess; E11.9 Type 2 diabetes mellitus without complications; E78.2 Mixed hyperlipidemia; N61.1 Abscess of the breast and nipple; E87.6 Hypokalemia; Z85.3 Personal history of malignant neoplasm of breast; Z90.710 Acquired absence of both cervix and uterus; Z91.040 Latex allergy status; Z20.822 Contact with and (suspected) exposure to COVID-19
CPT/HCPCS: 36415; 71045; 76641; 80048; 80053; 81015; 82947; 83605; 83735; 85025; 85610; 85730; 87040; 87070; 87075; 87086; 87088; 87205; 87811; 93005; 96372; 99285; J1650; J1815; J2001; J2250; J2405; J2543; J2550; J2704; J3010; J3370; J3480; J7030; J7040

== ENCOUNTER 2022-09-22 22:53 | Emergency (ER) | payer OTHER ==
--- OUTSIDE RECORDS SUMMARY | 2022-09-22 23:03 | XMS REPORT | Continuity of Care Document ---
:1960 Author Organization [facility] t Address [address] [place] [id number] Care Team Providers Name Role Phone Danis Attending Clinician Unavailable Danis Admitting Clinician Unavailable Payers Payer Name Policy Type Policy Number Effective Date Expiration Date [facility] [id number] (PPO) Problems Condition Condition Condition Status Onset Resolution Last Treating Co mments Source Name Details Category Date Date Treatment Clinician Date Sepsis Sepsis Problem Active [place] 9-13 Family 00:00: Practic 00 e Tinea Tinea Problem Active [facility] cruris Cruris 9-13 Family 00:00: Practic 00 e Body mass Body Mass Problem Active Kevin veronica index 30+ Index 30+ 8-02 Fami ly - obesity - Obesity 00:00: Prac tic 00 e Morbid Morbid Problem Active [facility] obesity Obesity 8-02 Family 00:00: Practic 00 e Type 2 Type 2 Problem Active [facility] diabetes Diabetes 8-02 Family mellitus Mellitus [...] DAILY TIMES DAILY benzonatate benzonatate No benzonatat [facility] 100 mg 100 mg e 100 mg [...] DAYS DAYS DAYS gabapentin gabapentin No gabapentin [facility] 300 mg 300 mg 300 mg Family capsule capsule capsule Practi c TAKE 1 TAKE 1 TAKE 1 e CAPSULE BY CAPSULE BY CAPSULE BY MOUTH TWICE MOUTH TWICE MOUTH DAILY DAILY TWICE DAILY Guaiatussin Guaiatussin No Guaiatussi [facility] AC 10 AC 10 n AC [...] 1:30: TDD 50 ivermectin ivermectin No ivermectin [facility] 3 mg tablet 3 mg tablet 3 mg F amily TAKE 7 TAKE 7 tablet Practic TABLET BY TABLET BY TAKE 7 e MOUTH EVERY MOUTH EVERY TABLET BY DAY FOR 5 DAY FOR 5 MOUTH DAYS DAYS EVERY DAY FOR 5 DAYS meloxicam meloxicam No meloxicam [facility] 15 mg 15 mg 15 mg [...] for 30 days. metformin metformin No metformin [facility] ER 500 mg ER 500 mg [...] DAY DAY DAY ondansetron ondansetron No ondansetro [facility] 4 mg 4 mg n 4 mg [...] FOR 30 DAYS oseltamivir oseltamivir No oseltamivi [facility] 75 mg 75 mg r 75 [...] route. day by oral route. [facility] Toukendall [facility] U-300 U-300 U-300 Family SoloStar SoloStar SoloStar [...] Name COVID-19, mRNA, COVID-19, mRNA, 2020-08-14 Completed [facility] Family LNP-S, PF, 100 LNP-S, PF, 100 00:00:00 Practi ce mcg/0.5 mL dose mcg/0.5 mL dose (Moderna) (Moderna) influenza, influenza, 2020-08-14 Completed [facility] Family unspecified unspecified 00:00:00 Practice formulation formulation Vital Signs Vital Name Observation Time Observation Value Comments Source BP Diastolic 2022-04-08 00:00:00 71 mm[Hg] [facility] Practice Height 2022-04-08 00:00:00 65 [in_i] [facility] BMI (Body Mass 2022-04-08 00:00:00 38.9 kg/m2 [facility]) Practice BP Systolic 2022-04-08 00:00:00 109 mm[Hg] [facility] Body Weight 2022-04-08 00:00:00 234 [lb_av] [facility] BP Diastolic 2022-02-25 00:00:00 71 mm[Hg] [facility] Height 2022-02-25 00:00:00 65 [in_i] [facility] BMI (Body Mass 2022-02-25 00:00:00 39.1 kg/m2 [facility] e Family Index) Practice BP Systolic 2022-02-25 00:00:00 122 mm[Hg] [facility] Body Weight 2022-02-25 00:00:00 235 [lb_av] [facility] Procedures Procedure Date / Time Performed Performing Clinician Sourc e RISK PROFESSIONAL Surgery 2011-07-27 00:00:00 Rachael Ray carpenter (Gynecology) Practice Lumpectomy 1999-07-27 00:00:00 [facility] Ray carpenter Practice Plan of Care Planned Activity Planned Date Details Comments Source Diagnostic Test 2022-04-08 glucose, [facility] Jovanyjohn carpenter Pending 00:00:00 fingerstick, blood Practice [code = glucose, fingerstick, blood] Encounters Start End Encounter Admission Attending Care Care Encounter Source Date/Time Date/Time Type Type Clinicians Facility Department ID 2021-08-29 Outpatient MDA MDA [id number] 17:47:06 Andreginaldoo n 2022-08-10 2022-08-10 Outpatient Daniel_T VFP VFP [id number] [facility] 00:00:00 00:00:00 [id number] Family Practic e 2022-06-25 2022-06-25 Outpatient Daniel_T VFP VFP [id number] [facility] 00:00:00 00:00:00 [id number] Family Practic e 2022-05-21 2022-05-21 Outpatient Daniel_T VFP VFP [id number] [facility] 00:00:00 00:00:00 [id number] Family Practic e 2022-04-17 2022-04-17 Outpatient Daniel_T VFP VFP [id number] [facility] 00:00:00 00:00:00 [id number] Family Practic e 2022-04-10 2022-04-10 Outpatient Daniel_T VFP VFP [id number] [address] 00:00:00 00:00:00 [id number] Family Practic e 2022-04-08 2022-04-08 Outpatient Daniel_T VFP VFP [id number] [address] [place] [address] 00:00:00 00:00:00 [id number] Family Practic e 2022-04-08 2022-04-08 Immanuel VFP [place] - [id number] V illage 00:00:00 00:00:00 [facility] [place]acyony [place] MD: [id number] MCKINLEY_JAYNE_Steve e [facility], [address] [address] , Ph. 2022-03-24 2022-03-24 Outpatient Daniel_T VFP VFP [id number] [address] [place] [address] 00:00:00 00:00:00 [id number] Family Practic e 2022-03-16 2022-03-16 Outpatient Daniel_T VFP VFP [id number] [address] [place] [address] 00:00:00 00:00:00 [id number] Family Practic e 2022-02-25 2022-02-25 Outpatient Daniel_T VFP VFP [id number] [address] [place] [address] 00:00:00 00:00:00 [id number] Family Practic e 2022-02-25 2022-02-25 Immanuel VFP [place] - [id number] V illage 00:00:00 00:00:00 [facility] Family [facility] - Sacha [place] MD: [id number] MCKINLEY_JAYNE_Steve e [facility], [address], [place] [address] , Ph. 2022-01-30 2022-01-30 Outpatient Daniel_T VFP VFP [id number] [address] [place] [address] 10:09:00 10:09:00 [id number] Family Practic e Results Test Description Test Time Test Comments Results Result Comments Source Glucose [Mass/volume] in Capillary blood 2022-04-08 15:05:43 Test Item Value Reference Range Interpretation Comme nts Blood Glucose: mg/dl (test code = Blood Glucose: mg/dl) [address] [place] [address] PracticeHemoglobin A1c measurement device [id number] 14:46:36 Test Item Value Reference Range Interpretation Comments Hemoglobin A1c/Hemoglobin.total in 11.4 % 5.7-6.4 Blood (test code = 4548-4) [facility] Capillary [id number] 14:44:18 Test Item Value Reference Range Interpretation Comments Blood Glucose: mg/dl (test code = Blood 296 Glucose: mg/dl) [facility]
[2022-09-23] MEDS ORDERED: NA CHLORIDE 0.9% 1,000 ML ONE (00:01)
[2022-09-23] MEDS ORDERED: MORPHINE 4 MG/ML SYR ONE (00:01)
[2022-09-23 00:56] LABS: Absolute Lymphocytes (CBC) 3.7 K/uL (0.7-4.9); Hematocrit 39.3 % (36.0-45.0); Lymphocytes % 28.8 % (15.3-44.8); MCV 83.5 fL (80-100); MPV 9.4 fL (7.6-11.3); RBC Red Blood Cell Count 4.71 M/uL (3.86-4.86)
[2022-09-23 01:00] LABS: Albumin 3.4 g/dL (3.4-5.0); Bilirubin Total 0.3 mg/dL (0.2-1.0); Protein, Total 7.2 g/dL (6.4-8.2)
[2022-09-23] MEDS ORDERED: INSULIN -REGULAR HUMAN 50 UNIT/0.5 ML ML ONE (01:23)
[2022-09-23 02:11] LABS: Urine Blood Negative (Negative); Urine Glucose 2+ (Negative); Urine Protein Negative (Negative)
[2022-09-23 02:28] LABS: Urine Bacteria <20 /HPF (<20); Urine RBC None Seen /HPF (None Seen)
[2022-09-23] MEDS ORDERED: KETOROLAC 30 MG/ML INJ ONE (02:31)
--- NOTE | 2022-09-23 02:31 | ER ---
Nurse's Notes [facility] Name: Karen Lyons Age: 62 yrs Sex: Female : 1960 Arrival Date: 09/22/2022 Time: 23:09 Bed 13 Private MD: Diagnosis: Lower abdominal pain, unspecified;Diabetes mellitus due to underlying condition with hyperglycemia Presentation: 09/22 23:13 Chief complaint: Patient states: I have been going to see Dr Moraes today for sharp pain kd3 in my left lower quadrant pain. It feels like twisting. Dr. Moraes told me to come here and so i did but it was very busy and I didn't want to stay too long so I left with some antibiotics but he told me to come to try to get labs and a CT scan. He thinks it might be diverticulitis. Coronavirus screen: Vaccine status: Patient reports receiving the 2nd dose of the covid vaccine. Ebola Screen: No symptoms or risks identified at this time. Initial Sepsis Screen: Does the patient meet any 2 criteria? No. Patient's initial sepsis screen is negative. Does the patient have a suspected source of infection? No. Patient's initial sepsis screen is negative. Risk Assessment: Do you want to hurt yourself or someone else? Patient reports no desire to harm self or others. Onset of symptoms was September 22, 2022. 23:13 Method Of Arrival: Ambulatory kd3 23:13 Acuity: TONYA 3 kd3 Triage Assessment: 23:16 General: Appears uncomfortable, Behavior is calm, cooperative. Pain: Complains of pain kd3 in left lower quadrant. GI: Abdomen is non-distended. Historical: - Allergies: 23:16 Latex, Natural Rubber; kd3 - PMHx: 23:16 Cancer, Breast; Diabetes - NIDDM; kd3 - PSHx: 23:16 Total abdominal hysterectomy; kd3 - Immunization history:: Adult Immunizations up to date. - Social history:: Smoking status: Patient denies any tobacco usage or history of. Screenin:[facility] ED Fall Risk Assessment (Adult) History of falling in the last 3 months, aa9 including since admission No falls in past 3 months (0 pts) Confusion or Disorientation No (0 pts) Intoxicated or Sedated No (0 pts) Impaired Gait No (0 pts) Mobility Assist Device Used No (0 pt) Altered Elimination No (0 pt) Score/Fall Risk Level 0 - 2 = Low Risk Oriented to surroundings, Maintained a safe environment. Abuse screen: Denies threats or abuse. Denies injuries from another. Nutritional screening: No deficits noted. Tuberculosis screening: No symptoms or risk factors identified. Assessment: 23:25 General: Appears in no apparent distress. comfortable, Behavior is calm, cooperative. aa9 23:25 Pain: Complains of pain in abdomen. Neuro: Level of Consciousness is awake, alert, aa9 obeys commands, Oriented to person, place, time, situation, Appropriate for age. Cardiovascular: Patient's skin is warm and dry. Respiratory: Airway is patent Respiratory effort is even, unlabored. GI: Reports diarrhea, Patient currently denies nausea, vomiting. GI: Bowel sounds present X 4 quads. Abd is soft X 4 quads. : No signs and/or symptoms were reported regarding the genitourinary system. Derm: Skin is intact, is healthy with good turgor. 09/23 00:00 Reassessment: Patient appears in no apparent distress at this time. Patient is alert, aa9 oriented x 3, equal unlabored respirations, skin warm/dry/pink. 01:13 Reassessment: Patient appears in no apparent distress at this time. Patient is alert, aa9 oriented x 3, equal unlabored respirations, skin warm/dry/pink. 02:12 Reassessment: Patient appears in no apparent distress at this time. Patient is alert, aa9 oriented x 3, equal unlabored respirations, skin warm/dry/pink. 02:42 Reassessment: Patient appears in no apparent distress at this time. Patient is alert, aa9 oriented x 3, equal unlabored respirations, skin warm/dry/pink. Patient states feeling better. Vital Signs: 09/22 23:12 BP 125 / 58; Pulse 83; Resp 19; Temp 98.7(O); Pulse Ox 97% on R/A; Weight 102.51 kg; kd3 Height 5 ft. 5 in. (165.10 cm); 23:12 Body Mass Index 37.61 (102.51 kg, 165.10 cm) kd3 ED Course: 23:09 Patient arrived in ED. ag3 23:16 Triage completed. kd3 23:16 Arm band placed on right wrist. kd3 23:21 Dilan Clark PA is PHCP. cp 23:22 José Miguel Griffin MD is Attending Physician. cp 23:30 Loraine Evans, MINERVA is Primary Nurse. aa9 23:51 Missed attempt(s): 22 gauge in right forearm. Bleeding controlled, band aid applied, aa9 catheter tip intact. 23:53 Patient has correct armband on for positive identification. Placed in gown. Bed in low aa9 position. Call light in reach. Side rails up X2. Adult w/ patient. 09/23 00:10 CBC with Diff Sent. kd3 00:10 CMP Sent. kd3 00:11 Lipase Sent. kd3 00:25 Hemoglobin A1c Sent. aa9 00:55 CT Abd/Pelvis - IV Contrast Only In Process Unspecified. EDMS 02:11 Urine Microscopic Only Sent. aa9 02:29 Mila Moraes MD is Referral Physician. cp 02:35 IV discontinued, intact, bleeding controlled, No redness/swelling at site. Pressure aa9 dressing applied. 02:42 No provider procedures requiring assistance completed. aa9 Administered Medications: 00:15 Drug: morphine 4 mg Route: IVP; Infused Over: 4 mins; Site: right antecubital; aa9 02:11 Follow up: Response: No adverse reaction aa9 00:19 Drug: NS 0.9% 500 ml Route: IV; Rate: bolus; Site: right antecubital; aa9 00:19 Drug: NS 0.9% 500 ml Route: IV; Rate: 125 ml/hr; Site: left antecubital; aa9 01:21 Drug: Insulin Regular Human 10 units {Co-Signature: kd3 (Nasrin Springer RN).} Route: aa9 IVP; Site: right antecubital; 02:22 Follow up: Response: No adverse reaction; Blood sugar is lowered aa9 02:35 Drug: Ketorolac 15 mg Route: IVP; Site: right antecubital; aa9 02:37 Follow up: Response: No adverse reaction aa9 02:35 Drug: HYDROcodone-acetaminophen 10 mg-325 mg 1 tabs Route: PO; aa9 02:37 Follow up: Response: No adverse reaction aa9 02:35 Drug: Flexeril (cyclobenzaprine) 10 mg Route: PO; aa9 02:37 Follow up: Response: No adverse reaction aa9 Medication: 02:42 VIS not applicable for this client. aa9 Outcome: 02:30 Discharge ordered by . génesis 02:42 Discharged to home ambulatory, with family. aa9 02:42 Condition: stable 02:42 Discharge instructions given to patient, Instructed on discharge instructions, follow up and referral plans. medication usage, Demonstrated understanding of instructions, follow-up care, medications, Prescriptions given X 2. 02:43 Patient left the ED. aa9 Signatures: Dispatcher [employer] EDMS Dilan Clark PA PA cp Gomez, Alice 3 Nasrin Springer RN RN kd3 Loraine Evans RN RN aa9 Nasrin Springer RN kd3
--- NOTE | 2022-09-23 02:31 | EDPHYS ---
Physician Documentation [facility] Name: Karen Lyons Age: 62 yrs Sex: Female : 1960 Arrival Date: 09/22/2022 Time: 23:09 Bed 13 Private MD: ED Physician José Miguel Griffin HPI: 09/22 23:54 This 62 yrs old Black Female presents to ER via Ambulatory with complaints of Abdominal cp Pain. 23:55 The patient presents with abdominal pain in the left lower quadrant. cp 23:55 Onset: The symptoms/episode began/occurred last week. The symptoms do not radiate. cp Associated signs and symptoms: Pertinent negatives: anorexia, constipation, diarrhea, dysuria, fever. The symptoms are described as waxing/waning. Severity of pain: in the emergency department the pain is unchanged despite home interventions. Patient reports she was sent by DR Moraes for evaluation of LLQ abdomen pain. DR Moraes requested CT abdomen/pelvis and blood work. Historical: - Allergies: 23:16 Latex, Natural Rubber; kd3 - PMHx: 23:16 Cancer, Breast; Diabetes - NIDDM; kd3 - PSHx: 23:16 Total abdominal hysterectomy; kd3 - Immunization history:: Adult Immunizations up to date. - Social history:: Smoking status: Patient denies any tobacco usage or history of. ROS: 23:58 Constitutional: Negative for body aches, chills, fever, poor PO intake. cp 23:58 Eyes: Negative for injury, pain, redness, and discharge. cp 23:58 ENT: Negative for drainage from ear(s), ear pain, sore throat, difficulty swallowing, difficulty handling secretions. 23:58 Cardiovascular: Negative for chest pain, palpitations. 23:58 Respiratory: Negative for cough, shortness of breath, wheezing. 23:58 Abdomen/GI: Positive for abdominal pain, of the left lower quadrant, Negative for vomiting, diarrhea, constipation. 23:58 Back: Negative for pain at rest, pain with movement. 23:58 : Negative for urinary symptoms, vaginal bleeding, vaginal discharge. 23:58 Skin: Negative for rash. 23:58 All other systems are negative. Exam: 23:59 Constitutional: The patient appears in no acute distress, alert, awake, non-toxic, well cp developed, well nourished, obese. 23:59 Head/Face: Normocephalic, atraumatic. cp 23:59 Eyes: Periorbital structures: appear normal, Conjunctiva: normal, no exudate, no injection, Sclera: no appreciated abnormality, Lids and lashes: appear normal, bilaterally. 23:59 ENT: External ear(s): are unremarkable, Nose: is normal, Mouth: Lips: moist, Oral mucosa: pink and intact, moist, Posterior pharynx: is normal, airway is patent, no erythema, no exudate. 23:59 Chest/axilla: Inspection: normal, Palpation: is normal, no crepitus, no tenderness. 23:59 Cardiovascular: Rate: normal, Rhythm: regular. 23:59 Respiratory: the patient does not display signs of respiratory distress, Respirations: normal, no use of accessory muscles, no retractions, labored breathing, is not present, Breath sounds: are clear throughout, no decreased breath sounds, no stridor, no wheezing. 23:59 Abdomen/GI: Inspection: obese Bowel sounds: active, all quadrants, Palpation: soft, in all quadrants, mild abdominal tenderness, in the left lower quadrant, rebound tenderness, is not appreciated, involuntary guarding, is not appreciated. 23:59 Back: pain, is absent, ROM is normal. 23:59 Skin: cellulitis, is not appreciated, no rash present. Vital Signs: 23:12 BP 125 / 58; Pulse 83; Resp 19; Temp 98.7(O); Pulse Ox 97% on R/A; Weight 102.51 kg; kd3 Height 5 ft. 5 in. (165.10 cm); 23:12 Body Mass Index 37.61 (102.51 kg, 165.10 cm) kd3 MDM: 23:22 Patient medically screened. 09/23 00:00 Differential diagnosis: bowel obstruction, diverticulitis, non-specific abd pain, cp Peritonitis, Pyelonephritis, Ureterolithiasis, urinary tract infection. 09/22 23:34 Order name: CBC with Diff; Complete Time: 01:35 cp 09/23 01:35 Interpretation: Normal except: WBC 12.70; MCH 26.7; MCHC 31.9. 09/22 23:34 Order name: CMP; Complete Time: 01:02 cp 09/23 01:35 Interpretation: Normal except: NA 133; GLUC 399; GFR 70; AST 11; GLOB 3.8; A/G 0.9. cp 09/22 23:34 Order name: Lipase; Complete Time: 01:02 cp 09/22 23:34 Order name: Urine Microscopic Only cp 09/23 00:04 Order name: Hemoglobin A1c cp 09/23 01:52 Order name: Glucose, Ancillary Testing; Complete Time: 02:14 EDMS 09/22 23:53 Order name: CT Abd/Pelvis - IV Contrast Only cp 09/23 02:12 Order name: Urine Dipstick-Ancillary; Complete Time: 02:14 EDMS 09/23 02:14 Interpretation: Normal except: UGLUC 2+. cp 09/23 02:40 Order name: Hemoglobin A1c EDMS 09/22 23:34 Order name: IV Saline Lock; Complete Time: 00:10 cp 09/22 23:34 Order name: Labs collected and sent; Complete Time: 00:10 cp 09/22 23:34 Order name: Urine Dipstick-Ancillary (obtain specimen); Complete Time: 02:11 cp Administered Medications: 00:15 Drug: morphine 4 mg Route: IVP; Infused Over: 4 mins; Site: right antecubital; aa9 02:11 Follow up: Response: No adverse reaction aa9 00:19 Drug: NS 0.9% 500 ml Route: IV; Rate: bolus; Site: right antecubital; aa9 00:19 Drug: NS 0.9% 500 ml Route: IV; Rate: 125 ml/hr; Site: left antecubital; aa9 01:21 Drug: Insulin Regular Human 10 units {Co-Signature: kd3 (Nasrin Springer RN).} Route: aa9 IVP; Site: right antecubital; 02:22 Follow up: Response: No adverse reaction; Blood sugar is lowered aa9 02:35 Drug: Ketorolac 15 mg Route: IVP; Site: right antecubital; aa9 02:37 Follow up: Response: No adverse reaction aa9 02:35 Drug: HYDROcodone-acetaminophen 10 mg-325 mg 1 tabs Route: PO; aa9 02:37 Follow up: Response: No adverse reaction aa9 02:35 Drug: Flexeril (cyclobenzaprine) 10 mg Route: PO; aa9 02:37 Follow up: Response: No adverse reaction aa9 Disposition Summary: 09/23/22 02:30 Discharge Ordered Location: Home cp Problem: new cp Symptoms: have improved cp Condition: Stable cp Diagnosis - Lower abdominal pain, unspecified cp - Diabetes mellitus due to underlying condition with hyperglycemia cp Followup: cp - With: Mila Moraes MD - When: 1 - 2 days - Reason: Recheck today's complaints Discharge Instructions: - Discharge Summary Sheet cp - Abdominal Pain, Adult cp - Hyperglycemia cp - Diabetes Mellitus and Nutrition, Adult cp Forms: - Medication Reconciliation Form cp - Thank You Letter cp - Antibiotic Education cp - Prescription Opioid Use cp Prescriptions: - Diclofenac Sodium 75 mg Oral tablet,delayed release (DR/EC) - take 1 tablet by ORAL route 2 times per day; 20 tablet; Refills: 0, Product cp Selection Permitted - methocarbamol 500 mg Oral Tablet - take 1 tablet by ORAL route 3 times per day; 30 tablet; Refills: 0, Product cp Selection Permitted Signatures: Dispatcher [employer] EDHI Dilan Clark PA PA cp Doucette, Kyli, RN RN kd3 Loraine Evans RN RN aa9 Nasrin Springer RN kd3
[2022-09-23] MEDS ORDERED: HYDROCODONE/APAP 10/325 TAB ONE (02:33)
[2022-09-23] MEDS ORDERED: CYCLOBENZAPRINE 10 MG TAB ONE (02:33)
[2022-09-23 03:19] VITALS: BP 125/58; TEMP 98.7; O2SAT 97
--- NOTE | 2022-09-23 10:58 | RAD REPORT ---
EXAM DESCRIPTION: CT - Abdomen Pelvis W Contrast - 09/23/2022 6:28 am CLINICAL HISTORY: 62 years Female LLQ abdomen pain TECHNIQUE: Axial CT imaging of the abdomen and pelvis was performed following the administration of intravenous contrast.. Oral contrast was not administered. Sagittal and coronal reconstructed image s were then performed. The CT study is performed according to ALARA (as low as reasonably achievabl e) or ALARA/IMAGE GENTLY, with automatic adjustment of mA and/or kV according to patient size. Performed on: 09/23/2022 at 12:34 AM. COMPARISON: CT abdomen and pelvis without contrast performed on 08/12/2018 FINDINGS: Lung bases: The lung bases are clear. There is minimal bibasilar atelectasis and/or fibros is. There is a stable coarse 1.0 cm calcification within the inferior medial left breast. Liver: The liver measures approximately 19.3 cm in craniocaudal dimension. No focal hepatic abnormali ties are identified. Liver attenuation is within normal limits. The hepatic and portal veins are davey nt. Spleen: The spleen is normal in size, configuration and attenuation. Gallbladder and bile duct: The gallbladder is well distended and unremarkable. There is no biliary ductal dilatation. Pancreas: The pancreas is grossly normal in size and configuration. Adrenal Glands: The adrenal glands are normal in size and configuration. Kidneys: The kidneys are normal in size and configuration. There is no evidence of hydronephrosis. Th ere is no evidence of nephrolithiasis. There are a few benign-appearing left renal cortical cysts. Th ere are a couple subcentimeter right renal cortical cysts. No follow-up imaging is recommended. Stomach: The stomach is grossly normal. There is no definite hiatal hernia. Bowel: The bowel gas pattern is non specific and non obstructive. Appendix: The appendix is not well-visualized on this examination. There is no CT evidence to suggest acute appendicitis. Free air: There is no evidence of free air. Free fluid: There is no evidence of free fluid. Vasculature: The aorta is normal in caliber and contour. The inferior vena cava is grossly unremarkab le. Lymphadenopathy: No pathologic lymphadenopathy is identified. Bladder: The bladder is well distended and smooth in contour. Reproductive: The uterus is surgically absent. Bones: No acute osseous abnormalities are identified. Soft tissues: No acute soft tissue abnormalities are identified. There is a small fat-containing vent ral umbilical hernia. There are surgical clips in the left hemipelvis. IMPRESSION: 1. No evidence of acute intra-abdominal or intrapelvic pathology. There are no finding s on this examination to explain the patient's reported clinical symptoms. 2. Remote hysterectomy. 3. Small fat-containing ventral umbilical hernia. Electronically signed by: Kiya Flynn DO 09/23/2022 1:20 AM [employer]IG BU[employer]DER HELPER Due to temporary technical issues with the PACS/Fluency reporting system, reports are being signed by the in house radiologists without review as a courtesy to insure prompt reporting. The interpreting radiologist is fully responsible for the content of the report.
== END 2022-09-23 02:43 | disposition home or self-care (01) ==
LOC: ER 22:53
DX: R10.31 Right lower quadrant pain (principal); E11.65 Type 2 diabetes mellitus with hyperglycemia; Z91.040 Latex allergy status; Z91.048 Other nonmedicinal substance allergy status
CPT/HCPCS: 85025; 36415; 82565; 82947; 83036; 83690; 80053; 74177; Q9967; J1815; 81003; 81015

== ENCOUNTER 2023-05-20 18:06 | Emergency (ER) | payer OTHER ==
--- OUTSIDE RECORDS SUMMARY | 2023-05-20 18:09 | XMS REPORT | Continuity of Care Document ---
:1960 Author Organization [facility] t Address [address] [place] [address] [place] [id number] Care Team Providers Name Role Phone JUNG PINEDA Primary Care Physician Unavailable Jai Attending Clinician Unavailable ODETTE BANSAL Attending Clinician Unavailable Odette Hernandez Attending Clinician Jai Admitting Clinician Unavailable ODETTE BANSAL Admitting Clinician Unavailable Payers Payer Name Policy Type Policy Number Effective Date Expiration Date S meet [facility] [id number] (PPO) [facility] [id number] 2023 PPO 00:00:00 Problems Condition Condition Condition Status Onset Resolution Last Treating Co mments Source Name Details Category Date Date Treatment Clinician Date Hyperlipid Hyperlipid Problem Active [facility] emia emia 7-10 Family 00:00: Practic 00 e Sepsis Sepsis Problem Active [facility] 9-13 Family 00:00: Practic 00 e Tinea Tinea Problem Active [facility] cruris Cruris 9-13 Family 00:00: Practic 00 e Body mass Body Mass Problem Active Kevin veronica index 30+ Index 30+ 8-02 Fami ly - obesity - Obesity 00:00: Prac tic 00 e Morbid Morbid Problem Active [facility] obesity Obesity 8-02 Family 00:00: Practic 00 e Type 2 Type 2 Problem Active [facility] diabetes Diabetes 8-02 Family mellitus Mellitus 00:00: Practi c 00 e Allergies, Adverse Reactions, Alerts Allergy Allergy Status Severity Reaction(s) Onset Inactive Treating Comm ents Source Name Type Date Date Clinician NO KNOWN Drug Active Univers ALLERGIE Class ity of [facility] LATEX, Allergy Active [facility] NATURAL to Family RUBBER substanc Practic e e Social History Social Habit Start Date Stop Date Quantity Comments Source Gender identity [facility] Sexual orientation [facility]iver s[facility] Sex Assigned At [birth year] [facility] Smoking Status Start Date Stop Date Source Tobacco smoking consumption [facility] Medications Ordered Filled Start Stop Current Ordering Indication Dosage Frequency Signature Comments Components Source Medication Medication Date Date Medication? Clinician (SIG) Name Name HYDROcodone 2022- No 1{tbl} 1 tablet, Univers -acetaminop 04-04 Oral, ity of hen (NORCO) 03:30[place] 02[place] :00 dose, On Medica l tablet 1 Thu04/03/23 Branc h tablet at 2230, Routine ketorolac Yes [id number] 10mg Take 1 Univers 10 mg 04-0302 tablet by ity of tablet 00:00: mouth [place] 00 every 6 Medical (six) Branch hours as needed for Pain (scale 4-6). acetaminoph acetaminoph No acetaminop [facility] en 300 en 300 hen 300 Family mg-codeine mg-codeine mg-codeine Practic 30 mg 30 mg 30 mg e tablet TAKE tablet TAKE tablet 1 TABLET BY 1 TABLET BY TAKE 1 MOUTH EVERY MOUTH EVERY TABLET BY 6 HOURS 6 HOURS MOUTH NEEDED FOR NEEDED FOR EVERY 6 PAIN PAIN HOURS NEEDED FOR PAIN albuterol albuterol No albuterol [place] sulfate HFA [...] DIFFICULTY NEEDED FOR BREATHING BREATHING DIFFICULTY BREATHING amoxicillin amoxicillin No amoxicilli [facility] 500 mg 500 mg n 500 mg Family capsule capsule capsule Practi c TAKE 1 TAKE 1 TAKE 1 e CAPSULE BY CAPSULE BY CAPSULE BY MOUTH THREE MOUTH THREE MOUTH TIMES DAILY TIMES DAILY THREE TIMES DAILY atorvastati atorvastati No atorvastat [facility] n 20 [...] DAILY TIMES DAILY benzonatate benzonatate No benzonatat [facility] 100 mg 100 mg e 100 [...] MOUTH AFTER USE fluconazole fluconazole No fluconazol [facility] 150 mg 150 mg e 150 mg Family tablet TAKE tablet TAKE tablet Practic 1 TABLET BY 1 TABLET BY TAKE 1 e MOUTH ONCE MOUTH ONCE TABLET BY A WEEK A WEEK MOUTH ONCE A WEEK FreeStyle FreeStyle No FreeStyle [facility] Viviana 2 Viviana 2 Viviana 2 Family Sensor kit Sensor kit Sensor kit Practic USE USE USE e DIRECTED DIRECTED DIRECTED BUT CHANGE BUT CHANGE BUT CHANGE EVERY 14 EVERY 14 EVERY 14 DAYS DAYS DAYS gabapentin gabapentin No gabapentin [facility] 300 mg 300 mg 300 mg Family capsule capsule capsule Practi c TAKE 1 TAKE 1 TAKE 1 e CAPSULE BY CAPSULE BY CAPSULE BY MOUTH TWICE MOUTH TWICE MOUTH DAILY DAILY TWICE DAILY Humulin R Humulin R No Humulin R [facility] U-500 U-500 U-500 Family (Conc) (Conc) (Conc) Practic Insulin Insulin Insulin e Kwikpen 500 Kwikpen 500 Kwikpen unit/mL (3 unit/mL (3 500 mL) mL) unit/mL (3 subcutaneou subcutaneou mL) s Give 40 s Give 40 subcutaneo units units us Give 40 before before units breakfast breakfast before and dinner and dinner breakfast and and and dinner increase as increase as and directed: directed: increase TDD 200 TDD 200 as directed: TDD 200 levofloxaci levofloxaci No levofloxac [facility] n 750 mg n 750 mg in 750 mg Fa edwin tablet TAKE tablet TAKE tablet Practic 1 TABLET BY 1 TABLET BY TAKE 1 e MOUTH ONCE MOUTH ONCE TABLET BY DAILY DAILY MOUTH ONCE DAILY losartan 25 losartan 25 No losartan [facility] mg tablet mg tablet 25 mg Fami ly TAKE 1 TAKE 1 tablet Practic TABLET BY TABLET BY TAKE 1 e MOUTH ONCE MOUTH ONCE TABLET BY DAILY DAILY MOUTH ONCE DAILY metformin metformin No 1 BID metformin [facility] [...] days. for 30 days. metformin metformin No 1 Q1D metformin [facility] ER 500 mg ER 500 mg ER 500 mg Family tablet,exte tablet,exte tablet,ext Practic nded nded ended e release 24 release 24 release 24 hr Take 1 hr Take 1 hr Take 1 tablet tablet tablet every day every day every day by oral by oral by oral route at route at route at dinner for dinner for dinner for 90 days. 90 days. 90 days. metronidazo metronidazo No metronidaz [facility] le 500 mg le 500 mg ole 500 mg Family tablet TAKE tablet TAKE tablet Practic 1 TABLET BY 1 TABLET BY TAKE 1 e MOUTH THREE MOUTH THREE TABLET BY TIMES DAILY TIMES DAILY MOUTH THREE TIMES DAILY Mounjaro Mounjaro No Mounjaro Kevin veronica 2.5 mg/0.5 2.5 mg/0.5 2.5 mg/0.5 Family mL mL mL Practic subcutaneou subcutaneou subcutaneo e s pen s pen us pen injector injector injector INJECT INJECT INJECT 2.5MG 2.5MG 2.5MG SUBCUTANEOU SUBCUTANEOU SUBCUTANEO SLY ONCE A SLY ONCE A USLY ONCE WEEK WEEK A WEEK ondansetron ondansetron No ondansetro [facility] 4 mg 4 mg n 4 [...] DAYS 30 DAYS DAILY FOR 30 DAYS Ozempic Ozempic No Ozempic Villag e [...] Pepcid AC No 1 BID Pepcid AC [facility] 20 mg 20 mg 20 mg Family tablet Take tablet Take tablet Practic 1 tablet 1 tablet Take 1 e twice a day twice a day tablet by oral by oral twice a route. route. day by oral route. Toulesleeo Max Toukendall Max No Toukendall Doherty [facility] U-300 U-300 U-300 Family SoloStar SoloStar SoloStar Pra ctic 300 unit/mL 300 unit/mL 300 e (3 mL) (3 mL) unit/mL (3 subcutaneou subcutaneou mL) s insulin s insulin subcutaneo pen INJECT pen INJECT us insulin 80 UNITS 80 UNITS pen INJECT SUBCUTANEOU SUBCUTANEOU 80 UNITS SLY ONCE SLY ONCE SUBCUTANEO DAILY IN DAILY IN USLY ONCE THE MORNING THE MORNING DAILY IN THE MORNING Marlene Rosario No Marlene [facility] SoloStar SoloStar SoloStar Fam modesta U-300 U-300 U-300 Practic Insulin 300 Insulin 300 Insulin e unit/mL unit/mL 300 (1.5 mL) (1.5 mL) unit/mL subcutaneou subcutaneou (1.5 mL) s pen s pen subcutaneo INJECT 70 INJECT 70 us pen UNITS UNITS INJECT 70 SUBCUTANEOU SUBCUTANEOU UNITS SLY ONCE SLY ONCE SUBCUTANEO DAILY AT DAILY AT USLY ONCE BEDTIME BEDTIME DAILY AT BEDTIME acetaminoph acetaminoph No acetaminop [facility] en 300 en 300 hen 300 Family mg-codeine mg-codeine mg-codeine Practic 30 mg 30 mg 30 mg e tablet TAKE tablet TAKE tablet 1 TABLET BY 1 TABLET BY TAKE 1 MOUTH EVERY MOUTH EVERY TABLET BY 6 HOURS 6 HOURS MOUTH NEEDED FOR NEEDED FOR EVERY 6 PAIN PAIN HOURS NEEDED FOR PAIN al[facility]ol [facility] sulfate HFA sulfate HFA sulfate Family 90 [...] DIFFICULTY NEEDED FOR BREATHING BREATHING DIFFICULTY BREATHING amoxicillin amoxicillin No amoxicilli [facility] 500 mg 500 mg n 500 mg Family capsule capsule capsule Practi c TAKE 1 TAKE 1 TAKE 1 e CAPSULE BY CAPSULE BY CAPSULE BY MOUTH THREE MOUTH THREE MOUTH TIMES DAILY TIMES DAILY THREE TIMES DAILY atorvastati atorvastati No atorvastat [facility] n 20 mg n 20 mg in 20 mg Famil y tablet TAKE tablet TAKE tablet Practic 1 TABLET BY 1 TABLET BY TAKE 1 e MOUTH ONCE MOUTH ONCE TABLET BY DAILY WITH DAILY WITH MOUTH ONCE EVENING EVENING DAILY WITH MEAL MEAL EVENING MEAL BD BD No BD [facility] Ultra-Fine Ultra-Fine Ultra-Fine Family Mini Pen Mini Pen Mini Pen Pra ctic Needle 31 Needle 31 Needle 31 e gauge x gauge x gauge x 3/16" USE 10/09" USE 10/09" USE DIRECTED DIRECTED 4 TIMES 4 TIMES DIRECTED 4 DAILY DAILY TIMES DAILY BD BD No BD [facility] Ultra-Fine Ultra-Fine Ultra-Fine Family Short Pen Short Pen Short Pen Practic Needle 31 Needle 31 Needle 31 e gauge x gauge x gauge x 12/09" USE 12/09" USE 12/09" USE DIRECTED DIRECTED 4 TIMES 4 TIMES DIRECTED 4 DAILY DAILY TIMES DAILY benzonatate benzonatate No benzonatat [facility] 100 mg 100 mg e 100 mg [facility] capsule capsule capsule Practi c TAKE 1 TAKE 1 TAKE 1 e CAPSULE BY CAPSULE BY CAPSULE BY MOUTH EVERY MOUTH EVERY MOUTH 8 HOURS 8 HOURS EVERY 8 NEEDED FOR NEEDED FOR HOURS COUGH COUGH NEEDED FOR COUGH Flovent HFA Flovent HFA No Flovent [facility] 44 44 HFA 44 Family mcg/actuati mcg/actuati mcg/actuat Practic on aerosol on aerosol ion e inhaler inhaler aerosol INHAL 1 TO INHAL 1 TO inhaler 2 PUFFS 2 PUFFS INHAL 1 TO EVERY 12 EVERY 12 2 PUFFS HOURS RINSE HOURS RINSE EVERY 12 MOUTH AFTER MOUTH AFTER HOURS USE USE RINSE MOUTH AFTER USE fluconazole fluconazole No fluconazol [facility] 150 mg 150 mg e 150 mg [facility] tablet TAKE tablet TAKE tablet Practic 1 TABLET BY 1 TABLET BY TAKE 1 e MOUTH ONCE MOUTH ONCE TABLET BY A WEEK A WEEK MOUTH ONCE A WEEK FreeStyle FreeStyle No FreeStyle [facility] Viviana 2 Viviana 2 Viviana 2 [facility] Sensor kit Sensor kit Sensor kit Practic USE USE USE e DIRECTED DIRECTED DIRECTED BUT CHANGE BUT CHANGE BUT CHANGE EVERY 14 EVERY 14 EVERY 14 DAYS DAYS DAYS FreeStyle FreeStyle No [facility] Viviana 3 Viviana 3 [facility] Sensor Sensor Sensor Practic device USE device USE device USE e DIRECTED DIRECTED DAILY DAILY DIRECTED (CHANGE (CHANGE DAILY SENSOR SENSOR (CHANGE EVERY 14 EVERY 14 SENSOR DAYS) DAYS) EVERY 14 DAYS) gabapentin gabapentin No gabapentin [facility] 300 mg 300 mg 300 mg [facility] capsule capsule capsule Practi c TAKE 1 TAKE 1 TAKE 1 e CAPSULE BY CAPSULE BY CAPSULE BY MOUTH TWICE MOUTH TWICE MOUTH DAILY DAILY TWICE DAILY Humulin R Humulin R No Humulin R [facility] U-500 U-500 U-500 [facility] (Conc) (Conc) (Conc) Practic Insulin Insulin Insulin e Kwikpen 500 Kwikpen 500 Kwikpen unit/mL (3 unit/mL (3 500 mL) mL) unit/mL (3 subcutaneou subcutaneou mL) s INJECT 40 s INJECT 40 subcutaneo UNITS UNDER UNITS UNDER us INJECT THE SKIN THE SKIN 40 UNITS BEFORE BEFORE UNDER THE BREAKFAST BREAKFAST SKIN AND DINNER AND DINNER BEFORE AND AND BREAKFAST INCREASE INCREASE AND DINNER DIRECTED DIRECTED AND (TOTAL (TOTAL INCREASE DAILY DOSE DAILY DOSE OF 200 OF 200 DIRECTED UNITS) UNITS) (TOTAL DAILY DOSE OF 200 UNITS) levofloxaci levofloxaci No levofloxac [facility] n 750 mg n 750 mg in 750 mg Fa edwin tablet TAKE tablet TAKE tablet Practic 1 TABLET BY 1 TABLET BY TAKE 1 e MOUTH ONCE MOUTH ONCE TABLET BY DAILY DAILY MOUTH ONCE DAILY losartan 25 losartan 25 No losartan [facility] mg tablet mg tablet 25 mg Fami ly TAKE 1 TAKE 1 tablet Practic TABLET BY TABLET BY TAKE 1 e MOUTH ONCE MOUTH ONCE TABLET BY DAILY DAILY MOUTH ONCE DAILY metformin metformin No 1 BID metformin [facility] [...] for 30 days. metformin metformin No metformin [facility] ER 500 mg ER 500 mg ER 500 mg Family tablet,exte tablet,exte tablet,ext Practic nded nded ended e release 24 release 24 release 24 hr TAKE 1 hr TAKE 1 hr TAKE 1 TABLET BY TABLET BY TABLET BY MOUTH ONCE MOUTH ONCE MOUTH ONCE DAILY WITH DAILY WITH DAILY WITH SUPPER SUPPER SUPPER metronidazo metronidazo No metronidaz [facility] le 500 mg le 500 mg ole 500 mg Family tablet TAKE tablet TAKE tablet Practic 1 TABLET BY 1 TABLET BY TAKE 1 e MOUTH THREE MOUTH THREE TABLET BY TIMES DAILY TIMES DAILY MOUTH THREE TIMES DAILY Mounjaro Mounjaro No 2.5mg Q1W Mounjaro Vi ll[facility] 2.5 mg/0.5 2.5 mg/0.5 2.5 mg/0.5 Family mL mL mL Practic subcutaneou subcutaneou subcutaneo e s pen s pen us pen injector injector injector Inject 2.5 Inject 2.5 Inject 2.5 mg every mg every mg every week by week by week by subcutaneou subcutaneou subcutaneo s route for s route for us route 30 days. 30 days. for 30 days. ondansetron ondansetron No ondansetro [facility] 4 mg 4 mg n 4 [...] DAYS 30 DAYS DAILY FOR 30 DAYS Ozempic Ozempic No Ozempic Villag e [...] AC Pepcid AC No [address] [facility] 20 mg 20 mg 20 mg Family tablet Take tablet Take tablet Practic 1 tablet 1 tablet Take 1 e twice a day twice a day tablet by oral by oral twice a route. route. day by oral route. Toujeo Max Toujeo Max No Toujeo Max [facility] U-300 U-300 U-300 Family SoloStar SoloStar SoloStar Pra ctic 300 unit/mL 300 unit/mL 300 e (3 mL) (3 mL) unit/mL (3 subcutaneou subcutaneou mL) s insulin s insulin subcutaneo pen INJECT pen INJECT us insulin 80 UNITS 80 UNITS pen INJECT SUBCUTANEOU SUBCUTANEOU 80 UNITS SLY ONCE SLY ONCE SUBCUTANEO DAILY IN DAILY IN USLY ONCE THE MORNING THE MORNING DAILY IN THE MORNING Marlene Rosario No Marlene [facility] SoloStar SoloStar SoloStar Fam modesta U-300 U-300 U-300 Practic Insulin 300 Insulin 300 Insulin e unit/mL unit/mL 300 (1.5 mL) (1.5 mL) unit/mL subcutaneou subcutaneou (1.5 mL) s pen s pen subcutaneo INJECT 70 INJECT 70 us pen UNITS UNITS INJECT 70 SUBCUTANEOU SUBCUTANEOU UNITS SLY ONCE SLY ONCE SUBCUTANEO DAILY AT DAILY AT USLY ONCE BEDTIME BEDTIME DAILY AT BEDTIME albuterol albuterol No albuterol [place] sulfate HFA [...] BREATHING DIFFICULTY BREATHING atorvastati atorvastati No atorvastat [facility] n 20 mg n 20 mg in 20 mg Famil y tablet TAKE tablet TAKE tablet Practic 1 TABLET BY 1 TABLET BY TAKE 1 e MOUTH ONCE MOUTH ONCE TABLET BY DAILY WITH DAILY WITH MOUTH ONCE EVENING EVENING DAILY WITH MEAL MEAL EVENING MEAL BD BD No BD [facility] Ultra-Fine Ultra-Fine Ultra-Fine [facility] Short Pen Short Pen Short Pen Practic Needle 31 Needle 31 Needle 31 e gauge x gauge x gauge x 516" USE 12/09" USE 12/09" USE DIRECTED DIRECTED 4 TIMES 4 TIMES DIRECTED 4 DAILY DAILY TIMES DAILY benzonatate benzonatate No benzonatat [facility] 100 mg 100 mg e 100 [...] 31 gauge x 31 gauge x Family 3/16" 316" 316" Practic needle USE needle USE needle USE e DIRECTED DIRECTED FOUR TIMES FOUR TIMES DIRECTED DAILY DAILY FOUR TIMES DAILY Flovent HFA Flovent HFA No Flovent [facility] 44 44 HFA 44 Family mcg/actuati mcg/actuati mcg/actuat Practic on aerosol on aerosol ion e inhaler inhaler aerosol INHAL 1 TO INHAL 1 TO inhaler 2 PUFFS 2 PUFFS INHAL 1 TO EVERY 12 EVERY 12 2 PUFFS HOURS RINSE HOURS RINSE EVERY 12 MOUTH AFTER MOUTH AFTER HOURS USE USE RINSE MOUTH AFTER USE fluconazole fluconazole No fluconazol [facility] 150 mg 150 mg e 150 mg Family tablet TAKE tablet TAKE tablet Practic 1 TABLET BY 1 TABLET BY TAKE 1 e MOUTH ONCE MOUTH ONCE TABLET BY A WEEK A WEEK MOUTH ONCE A WEEK FreeStyle FreeStyle No FreeStyle [facility] Viviana 2 Viviana 2 Viviana 2 Family Sensor kit Sensor kit Sensor kit Practic USE USE USE e DIRECTED DIRECTED DIRECTED BUT CHANGE BUT CHANGE BUT CHANGE EVERY 14 EVERY 14 EVERY 14 DAYS DAYS DAYS gabapentin gabapentin No gabapentin [facility] 300 mg 300 mg 300 mg Family capsule capsule capsule Practi c TAKE 1 TAKE 1 TAKE 1 e CAPSULE BY CAPSULE BY CAPSULE BY MOUTH TWICE MOUTH TWICE MOUTH DAILY DAILY TWICE DAILY Guaiatussin Guaiatussin No Guaiatussi [facility] AC 10 AC 10 n AC 10 [...] WITH MEAL Humalog Humalog No Humalog [facility] Kenzei Lopez Family U-200 U-200 U-200 Practic Insulin [...] 1:30: TDD 50 ivermectin ivermectin No ivermectin [facility] 3 mg tablet 3 mg tablet 3 mg F amily TAKE 7 TAKE 7 tablet Practic TABLET BY TABLET BY TAKE 7 e MOUTH EVERY MOUTH EVERY TABLET BY DAY FOR 5 DAY FOR 5 MOUTH DAYS DAYS EVERY DAY FOR 5 DAYS meloxicam meloxicam No meloxicam [facility] 15 mg 15 mg 15 mg [...] for 30 days. metformin metformin No metformin [facility] ER 500 mg ER 500 mg [...] DAY DAY DAY ondansetron ondansetron No ondansetro [facility] 4 mg 4 mg n 4 [...] FOR 30 DAYS oseltamivir oseltamivir No oseltamivi [facility] 75 mg 75 mg r 75 [...] Pepcid AC No 1 BID Pepcid AC [facility] 20 mg 20 mg 20 mg Family tablet Take tablet Take tablet Practic 1 tablet 1 tablet Take 1 e twice a day twice a day tablet by oral by oral twice a route. route. day by oral route. Toujeo Max Toukendall Max No Toukendall Max [facility] U-300 U-300 U-300 Family SoloStar SoloStar SoloStar [...] UNITS DIRECTED TOTAL DAILY DOSE 100 UNITS Vital Signs Vital Name Observation Time Observation Value Comments Source Systolic blood 2023-04-04 04:06:00 148 mm[Hg] Univer [facility]ity of [facility] Diastolic blood 2023-04-04 04:06:00 68 mm[Hg] Unive rsity [facility] Heart rate 2023-04-04 04:06:00 69 /min [facility] Body temperature 2023-04-04 04:06:00 36.61 [facility] rate 2023-04-04 04:06:00 16 /min [facility] Oxygen saturation in 2023-04-04 04:06:00 99 /min [facility] blood by [facility] Pulse oximetry [place] Body height 2023-04-04 00:58:[address] [facility] Body weight 2023-04-04 00:58:[address] [facility] BMI 2023-04-04 00:58:00 37.94 kg/m2 [facility] BP Diastolic 2023-02-02 00:00:00 67 mm[Hg] [facility] Height 2023-02-02 00:00:00 65 [in_i] [facility] BMI (Body Mass 2023-02-02 00:00:00 39.2 kg/m2 [facility] Family Index) Practice BP Systolic 2023-02-02 00:00:00 101 mm[Hg] [facility] Body Weight 2023-02-02 00:00:00 235.8 [lb_av] [facility] BP Diastolic 2022-04-08 00:00:00 71 mm[Hg] [facility] Height 2022-04-08 00:00:00 65 [in_i] [facility] BMI (Body Mass 2022-04-08 00:00:00 38.9 kg/m2 [facility] Family Index) Practice BP Systolic 2022-04-08 00:00:00 109 mm[Hg] [facility] Body Weight 2022-04-08 00:00:00 234 [lb_av] [facility] BP Diastolic 2022-02-25 00:00:00 71 mm[Hg] [facility] Height 2022-02-25 00:00:00 65 [in_i] [facility] BMI (Body Mass 2022-02-25 00:00:00 39.1 kg/m2 [facility] Index) Practice BP Systolic 2022-02-25 00:00:00 122 mm[Hg] [facility] Body Weight 2022-02-25 00:00:00 235 [lb_av] [facility] Procedures Procedure Date / Time Performed Performing Clinician Abdias crystal ASSIGNMENT OF BENEFITS 2023-04-04 03:15:43 Doctor Unassigned, No [facility] Name Medical Branch XR HIPS 2 VW RIGHT 2023-04-04 02:53:34 Odette Bansal [facility] CONSENT/REFUSAL FOR 2023-04-04 00:44:43 Doctor Unassigned, No Un [facility] DIAGNOSIS AND [facility] Medical Branch TREATMENT NOTICE OF PRIVACY 2023-04-04 00:44:05 Doctor Unassigned, No Univ [facility] PRACTICES Name Medical Branch [place] Surgery 2011-07-27 00:00:00 [facility] Ray carpenter (Gynecology) Practice Lumpectomy 1999-07-27 00:00:00 [facility] Ray jayden Practice Plan of Care Planned Activity Planned Date Details Comments Source Diagnostic Test 2023-02-02 glucose, fingerstick, Kevin Leger Pending 00:00:00 blood [code = Practice glucose, fingerstick, blood] Diagnostic Test 2023-02-02 hemoglobin A1C, [facility] Jose bennett Pending 00:00:00 fingerstick [code = Practice hemoglobin A1C, fingerstick] Future Appointment 2023-05-24 Immanuel Blair, [id number] [facility] 00:00:[address]; Practice [address], [place] [address] Encounters Start End Encounter Admission Attending Care Care Encounter Source Date/Time Date/Time Type Type Clinicians Facility Department ID 2021-08-29 Outpatient SHELLY BRAVO [id number] 17:47:06 Anderso n 2023-04-12 2023-04-12 Outpatient Johnnie_Daniel_HO VFP VFP [id number] [facility] 00:00:00 00:00:00 JACQUELINE [id number] Family Practic e 2023-04-03 2023-04-03 [facility] [id number] Univers 20:07:00 23:10:00 ODETTE real of [facility] 2023-04-03 2023-04-03 Emergency Nimisha [facility] [id number] Univers 20:07:00 23:10:00 Odette Santillan [place] [id number] i ty [facility] [id number] [facility] [id number] [facility] 084 Branch 2023-03-24 2023-03-24 Immanuel VFP [place] - [id number] V illage 00:00:00 00:00:00 [facility] Family BlairSherita - Sacha houston MD: [id number] [place] - e Shadow VM_HOU_[facility], [address], [place] [address] , Ph. 2023-02-28 2023-02-28 Outpatient Daniel_T_HO VFP VFP [id number] [facility] 00:00:00 00:00:00 U_ [id number] Family Practic e 2023-02-28 2023-02-28 Outpatient Daniel_T_HO VFP VFP [id number] [facility] 00:00:00 00:00:00 U_ [id number] Family Practic e 2023-02-28 2023-02-28 Outpatient Daniel_T_HO VFP VFP [id number] [facility] 00:00:00 00:00:00 U_ [id number] Family Practic e 2023-02-02 2023-02-02 Outpatient Daniel_T_HO VFP VFP [id number] [facility] 00:00:00 00:00:00 U_ [id number] Family Practic e 2023-02-02 2023-02-02 Outpatient Daniel_T_HO VFP VFP [id number] [facility] 00:00:00 00:00:00 U_ [id number] Family Practic e 2023-02-02 2023-02-02 Outpatient Daniel_T_HO VFP VFP [id number] [facility] 00:00:00 00:00:00 U_ [id number] Family Practic e 2023-02-02 2023-02-02 Immanuel VFP [place] - [id number] V illage 00:00:00 00:00:00 [facility] Family BlairSherita MD: [id number] [place] - e Shadow [facility], [address] [address] , Ph. 2022-08-10 2022-08-10 Outpatient Daniel_T VFP VFP [id number] [address] [place] [address] 00:00:00 00:00:00 [id number] Family Practic e 2022-06-25 2022-06-25 Outpatient Daniel_T VFP VFP [id number] [address] [place] [address] 00:00:00 00:00:00 [id number] Family Practic e 2022-05-21 2022-05-21 Outpatient Daniel_T VFP VFP [id number] [address] [place] [address] 00:00:00 00:00:00 [id number] Family Practic e 2022-04-17 2022-04-17 Outpatient Daniel_T VFP VFP [id number] [address] [place] [address] 00:00:00 00:00:00 [id number] Family Practic e 2022-04-10 2022-04-10 Outpatient Daniel_T VFP VFP [id number] [address] [place] [address] 00:00:00 00:00:00 [id number] Family Practic e 2022-04-08 2022-04-08 Outpatient Daniel_T VFP VFP [id number] [address] [place] [address] 00:00:00 00:00:00 [id number] Family Practic e 2022-04-08 2022-04-08 Immanuel VFP [place] - [id number] V illage 00:00:00 00:00:00 [facility] Family BlairSherita MD: [id number] MCKINLEY_JAYNEKavondesirae e Shadow [facility], [facility] [address] [address] , Ph. 2022-03-24 2022-03-24 Outpatient Daniel_T VFP VFP [id number] [address] [place] [address] 00:00:00 00:00:00 [id number] Family Practic e 2022-03-162022-03-16 Outpatient Daniel_T VFP VFP [id number] 3-20 [facility] 00:00:00 00:00:00 [id number] Family Practic e 2022-02-25 2022-02-25 Outpatient Daniel_T VFP VFP [id number] - [facility] 00:00:00 00:00:00 [id number] Family Practic e 2022-02-25 2022-02-25 Immanuel VFP [place] - [id number] [facility] 00:00:00 00:00:00 Juancarlos [facility] Family Johnnie, Medical - Practi c MD: [id number] [email or web address] [address], [address], [place] [address] , Ph. 2022-01-30 2022-01-30 Outpatient Daniel_T VFP VFP [id number] 10-13 [facility] 10:09:00 10:09:00 [id number] Family Practic e Results Test Description Test Time Test Comments Results Result Comments Source Glucose [Mass/volume] in Capillary blood 2023-02-02 14:03:08 Test Item Value Reference Range Interpretation Comme nts Blood Glucose: mg/dl (test code = Blood Glucose: mg/dl) [facility] [id number] 15:05:43 Test Item Value Reference Range Interpretation Comments Blood Glucose: mg/dl (test code = Blood 253 Glucose: mg/dl) [facility] device [id number] 14:46:36 Test Item Value Reference Range Interpretation Comments Hemoglobin A1c/Hemoglobin.total in 11.4 % 5.7-6.4 Blood (test code = 4548-4) [facility] [[facility]] in Capillary [id number] 14:44:18 Test Item Value Reference Range Interpretation Comments Blood Glucose: mg/dl (test code = Blood 296 Glucose: mg/dl) [facility]
[2023-05-20] MEDS ORDERED: FAMOTIDINE 20 MG/2 ML VIAL IV ONE (18:33)
[2023-05-20 18:44] LABS: Absolute Lymphocytes (CBC) 0.7 K/uL (0.7-4.9); Hematocrit 41.6 % (36.0-45.0); Lymphocytes % 4.9 % (15.3-44.8); MCV 82.6 fL (80-100); MPV 9.2 fL (7.6-11.3); Platelets 312 thou/uL (152-406); RBC Red Blood Cell Count 5.04 M/uL (3.86-4.86)
--- NOTE | 2023-05-20 18:58 | RAD REPORT ---
EXAM DESCRIPTION: RAD - Chest Single View - 05/20/2023 6:46 pm CLINICAL HISTORY: CHEST PAIN Chest pain. COMPARISON: Chest Single View dated 04/21/2022; Chest Single View dated 04/03/2022; Chest Single View d ated 11/03/2018; Chest Single View dated 03/12/2018 FINDINGS: Portable technique limits examination quality. The lungs are grossly clear. The heart is normal in size. No displaced fractures. IMPRESSION: No acute intrathoracic process suspected.
--- NOTE | 2023-05-20 19:09 | RAD REPORT ---
EXAM DESCRIPTION: US - Abdomen Exam Limited - 05/20/2023 7:02 pm CLINICAL HISTORY: ABD PAIN COMPARISON: Abdomen Exam Limited dated 03/12/2018 FINDINGS: The gallbladder demonstrates no gallstones. No pericholecystic fluid or gallbladder wall t hickening. The common bile duct is normal measuring 4 mm. The liver demonstrates no findings of intrahepatic biliary dilatation. IMPRESSION: Unremarkable examination.
[2023-05-20] MEDS ORDERED: ONDANSETRON 4 MG (ODT) TAB ONE (21:01)
[2023-05-21] MEDS ORDERED: ONDANSETRON 4 MG/2 ML VIAL ONE (00:31)
[2023-05-21] MEDS ORDERED: MORPHINE 4 MG/ML SYR ONE (00:31)
[2023-05-21 01:13] LABS: Bilirubin Total 0.6 mg/dL (0.2-1.0); Protein, Total 6.9 g/dL (6.4-8.2); Troponin High Sensitivity 4.9 (<58.9)
--- NOTE | 2023-05-21 01:21 | EDPHYS ---
Physician Documentation [facility] Name: Karen Lyons Age: 62 yrs Sex: Female : 1960 Arrival Date: 05/20/2023 Time: 18:06 Bed 13 Private MD: ED Physician Dilan Mansfield HPI: 05/20 19:27 This 62 yrs old Black Female presents to ER via EMS with complaints of Nausea, kb vomiting,. 19:27 Patient is a 62-year-old female who presents for nausea, vomiting, epigastric pain, kb chest pain and low blood sugar that all started at 5:00 this morning. EMS reports fever of 100.2 upon their arrival on scene. Patient was given Tylenol prior to arrival. Historical: - Allergies: 18:13 Latex; ph - PMHx: 18:13 Cancer; L breast; Diabetes - NIDDM; ph - PSHx: 18:13 Total abdominal hysterectomy; ph - Immunization history:: Adult Immunizations unknown. - Social history:: Smoking status: Patient denies any tobacco usage or history of. ROS: 19:28 Respiratory: Negative for shortness of breath, cough, wheezing, and pleuritic chest kb pain, 19:28 Constitutional: Positive for fever, 19:28 Cardiovascular: Positive for chest pain, 19:28 Abdomen/GI: Positive for abdominal pain, nausea and vomiting, 19:28 All other systems are negative, Exam: 19:28 Constitutional: This is a well developed, well nourished patient who is awake, alert, kb and in no acute distress. Head/Face: Normocephalic, atraumatic. ENT: Moist Mucous membranes Cardiovascular: Regular rate Respiratory: Respirations even and unlabored. No increased work of breathing. Talking in full sentences Skin: Warm, dry with normal turgor. Normal color. MS/ Extremity: Pulses equal, no cyanosis. Neurovascular intact. Full, normal range of motion. Neuro: Awake and alert, GCS 15, oriented to person, place, time, and situation. Moves all extremities. Normal gait. 19:28 Chest/axilla: Inspection: normal, Palpation: tenderness, that is moderate, of the mid-sternal area, that totally reproduces the patient's complaints, 19:28 Abdomen/GI: Inspection: abdomen appears normal, Bowel sounds: normal, Palpation: soft, in all quadrants, moderate abdominal tenderness, in the epigastric area and right upper quadrant, Vital Signs: 18:11 BP 161 / 63; Pulse 115; Resp 18; Temp 99.8(O); Pulse Ox 98% on R/A; Weight 97.52 kg; ph Height 5 ft. 3 in. ; 19:00 BP 152 / 71; Pulse 112; Resp 20 S; Pulse Ox 97% on R/A; jw7 20:00 BP 124 / 68; Pulse 109; Resp 21 S; Pulse Ox 95% on R/A; jw7 21:00 BP 125 / 55; Pulse 106; Resp 20 S; Pulse Ox 96% on R/A; jw7 22:00 BP 118 / 50; Pulse 103; Resp 21 S; Pulse Ox 95% on R/A; jw7 23:00 BP 121 / 63; Pulse 101; Resp 18 S; Pulse Ox 96% on R/A; jw7 05/21 00:00 BP 129 / 60; Pulse 100; Resp 19 S; Pulse Ox 96% on R/A; jw7 01:29 BP 121 / 63; Pulse 97; Resp 19 S; Pulse Ox 96% on R/A; jw7 05/20 18:11 Body Mass Index 38.09 (97.52 kg, 160.02 cm) ph MDM: 05/20 18:08 Patient medically screened. kb 19:28 Differential diagnosis: Nonspecific abd pain, gastritis, cholecystitis, pancreatitis, kb gastroenteritis, Abnormal EKG, NE, dissection. Data reviewed: vital signs, nurses notes. 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 05/20 18:10 Order name: CBC with Diff; Complete Time: 18:55 kb 05/20 18:10 Order name: CMP; Complete Time: 01:16 kb 05/20 18:10 Order name: Lipase; Complete Time: 01:16 kb 05/20 18:10 Order name: Troponin High Sensitivity; Complete Time: 01:16 kb 05/20 18:24 Order name: Flu; Complete Time: 19:07 kb 05/20 18:24 Order name: COVID-19 SARS RT PCR; Complete Time: 19:33 kb 05/21 00:32 Order name: CREATININE WHOLE BLOOD; Complete Time: 00:38 EDMS 05/20 18:10 Order name: Abdomen Limited US; Complete Time: 19:19 kb 05/20 18:10 Order name: Chest Single View XRAY; Complete Time: 19:00 kb 05/20 19:30 Order name: CT Abd/Pelvis - IV Contrast Only kb 05/20 18:10 Order name: EKG; Complete Time: 18:10 kb 05/20 18:10 Order name: IV Saline Lock; Complete Time: 18:28 kb 05/20 18:10 Order name: Labs collected and sent; Complete Time: 18:29 kb 05/20 18:10 Order name: EKG - Nurse/Tech; Complete Time: 18:28 kb 05/20 19:14 Order name: Misc. Order: RECOLLECT GREEN TOP; Complete Time: 19:31 rv1 05/20 19:36 Order name: Misc. Order: RECOLLECT GREEN TOP PLEASE; Complete Time: 19:58 rv1 Administered Medications: 05/20 18:29 Drug: Famotidine IVP 20 mg IVP once; dilute with 10 mL 0.9% NaCl; give over 2 minutes ph Route: IVP; Site: right hand; 20:50 Follow up: Response: No adverse reaction; Marked relief of symptoms jw7 20:50 Drug: Ondansetron Oral Disintegrating Tablet Oral Disintegrating Tablet 4 mg PO once jw7 Route: PO; 23:37 Follow up: Response: No adverse reaction; Marked relief of symptoms jw7 05/21 00:30 Drug: Ondansetron IVP 4 mg IVP once; over 2 minutes Route: IVP; Site: right forearm; jw7 01:54 Follow up: Response: No adverse reaction; Marked relief of symptoms jw7 00:30 Drug: morphine IVP or IV 4 mg IVP once over 4 mins Route: IVP; Infused Over: 4 mins; jw7 Site: right forearm; 01:54 Follow up: Response: No adverse reaction; Marked relief of symptoms jw7 Disposition Summary: 05/21/23 01:20 Discharge Ordered Notes: Location: Home kb Condition: Stable kb Diagnosis - Enterocolitis kb - Chest pain, unspecified kb - Hyperglycemia, unspecified kb Followup: kb - With: Emergency Department - When: As needed - Reason: Worsening of condition Followup: kb - With: Private Physician - When: 2 - 3 days - Reason: Recheck today's complaints, Continuance of care, Re-evaluation by your physician Discharge Instructions: - Discharge Summary Sheet kb - Viral Gastroenteritis, Adult, [id number] kb - Nonspecific Chest Pain, Adult, [id number] kb - Hyperglycemia, [id number] kb - Colitis kb Forms: - Medication Reconciliation Form kb - Thank You Letter kb - Antibiotic Education kb - Prescription Opioid Use kb - Patient Portal Instructions kb - Leadership Thank You Letter kb Prescriptions: - ondansetron 4 mg Oral Tablet,disintegrating - take 1 tablet ORAL route every 6 hours As needed; 12 tablet; Refills: 0, kb Product Selection Permitted - Cipro 500 mg Oral Tablet - take 1 tablet ORAL route every 12 hours for 10 days; 20 tablet; Refills: 0, kb Product Selection Permitted - Flagyl 500 mg Oral Tablet - take 1 tablet ORAL route every 8 hours for 10 days; 30 tablet; Refills: 0, kb Product Selection Permitted - dicyclomine 20 mg Oral tablet - take 1 tablet ORAL route 4 times per day As needed; 20 tablet; Refills: 0, kb Product Selection Permitted Signatures: Dispatcher [employer] Stephanie Quiroz, AURICULAR THERAPIST-C AURICULAR THERAPIST-Sanaz Richards, RN RN Jen Nuno RN RN 7 Katheryn Doyle rv1 Corrections: (The following items were deleted from the chart) 05/20 18:14 18:13 PMHx: Cancer; ph ph 18:14 18:13 PMHx: Cancer; ph ph 18:47 18:24 Bilateral blood pressure ordered. kb kb 19:28 19:27 Patient is a 62-year-old female who presents for nausea, vomiting, epigastric kb pain, chest pain and low blood sugar that all started at 5:00 this morning.. kb
--- NOTE | 2023-05-21 01:21 | ER ---
Nurse's Notes [facility] Name: Karen Lyons Age: 62 yrs Sex: Female : 1960 Arrival Date: 05/20/2023 Time: 18:06 Bed 13 Private MD: Diagnosis: Enterocolitis;Chest pain, unspecified;Hyperglycemia, unspecified Presentation: 05/20 18:11 Chief complaint: EMS states: Pt c/o fever, N/V, abdominal and chest pain that started ph today, Temp 101, other VSS, 1 gram Tylenol PO, IV to R hand, 4 mg Zofran and fluid bolus given. Coronavirus screen: Vaccine status: Patient reports receiving the 2nd dose of the covid vaccine. Ebola Screen: No symptoms or risks identified at this time. Initial Sepsis Screen: Does the patient meet any 2 criteria? HR > 90 bpm. Does the patient have a suspected source of infection? Yes: Acute abdominal pain. Risk Assessment: Do you want to hurt yourself or someone else? Patient reports no desire to harm self or others. Onset of symptoms was May 20, 2023. 18:11 Method Of Arrival: EMS: [facility] ph 18:11 Acuity: TONYA 2 ph Triage Assessment: 18:14 General: Appears in no apparent distress. Behavior is calm, cooperative, Reports fever ph for 0-12 hours. Pain: Complains of pain in chest, abdomen and left arm. Neuro: Level of Consciousness is awake, alert, obeys commands, Oriented to person, place, time, situation. Cardiovascular: Reports chest pain, nausea, vomiting, Capillary refill < 3 seconds in bilateral fingers Patient's skin is warm and dry. Respiratory: Airway is patent Respiratory effort is even, unlabored, Respiratory pattern is regular, symmetrical. GI: Abdomen is non-distended, Reports upper abdominal pain, nausea, vomiting. Derm: Skin is pink, warm \\T\\ dry. Historical: - Allergies: 18:13 Latex; ph - PMHx: 18:13 Cancer; L breast; Diabetes - NIDDM; ph - PSHx: 18:13 Total abdominal hysterectomy; ph - Immunization history:: Adult Immunizations unknown. - Social history:: Smoking status: Patient denies any tobacco usage or history of. Screenin:15 [facility] ED Fall Risk Assessment (Adult) History of falling in the last 3 months, ph including since admission No falls in past 3 months (0 pts) Confusion or Disorientation No (0 pts) Intoxicated or Sedated No (0 pts) Impaired Gait No (0 pts) Mobility Assist Device Used No (0 pt) Altered Elimination No (0 pt) Score/Fall Risk Level 0 - 2 = Low Risk Oriented to surroundings, Maintained a safe environment, Provided non-skid footwear, Hourly rounding (assess needs \\T\\ fall precautionary measures) done. Abuse screen: Denies threats or abuse. Denies injuries from another. Nutritional screening: No deficits noted. Tuberculosis screening: No symptoms or risk factors identified. Assessment: 18:16 Reassessment: See triage assessment. nd1 18:49 Reassessment: Pt does not want blood pressure assessed on left arm "i had breast nj1 cancer". ED provider notified. 19:33 Reassessment: Patient appears in no apparent distress at this time. Patient and/or jw7 family updated on plan of care and expected duration. Pain level reassessed. Patient is alert, oriented x 3, equal unlabored respirations, skin warm/dry/pink. Patient states feeling better. 20:30 Reassessment: Patient appears in no apparent distress at this time. No changes from jw7 previously documented assessment. Patient and/or family updated on plan of care and expected duration. Pain level reassessed. Patient is alert, oriented x 3, equal unlabored respirations, skin warm/dry/pink. 20:45 Reassessment: patient c/o nausea and feeling lightheaded, provider notified. jw7 22:08 Reassessment: Patient appears in no apparent distress at this time. Patient and/or jw7 family updated on plan of care and expected duration. Pain level reassessed. Patient is alert, oriented x 3, equal unlabored respirations, skin warm/dry/pink. Patient states symptoms have improved. 23:22 Reassessment: Patient appears in no apparent distress at this time. No changes from jw7 previously documented assessment. Patient and/or family updated on plan of care and expected duration. Pain level reassessed. Patient is alert, oriented x 3, equal unlabored respirations, skin warm/dry/pink. 05/21 00:10 Reassessment: Patient appears in no apparent distress at this time. Patient and/or jw7 family updated on plan of care and expected duration. Pain level reassessed. Patient is alert, oriented x 3, equal unlabored respirations, skin warm/dry/pink. c/o upper abdominal pain and nausea, provider notified. 01:29 Reassessment: Patient appears in no apparent distress at this time. Patient and/or jw7 family updated on plan of care and expected duration. Pain level reassessed. Patient is alert, oriented x 3, equal unlabored respirations, skin warm/dry/pink. Patient states feeling better. Patient states symptoms have improved. Vital Signs: 05/20 18:11 BP 161 / 63; Pulse 115; Resp 18; Temp 99.8(O); Pulse Ox 98% on R/A; Weight 97.52 kg; ph Height 5 ft. 3 in. ; 19:00 BP 152 / 71; Pulse 112; Resp 20 S; Pulse Ox 97% on R/A; jw7 20:00 BP 124 / 68; Pulse 109; Resp 21 S; Pulse Ox 95% on R/A; jw7 21:00 BP 125 / 55; Pulse 106; Resp 20 S; Pulse Ox 96% on R/A; jw7 22:00 BP 118 / 50; Pulse 103; Resp 21 S; Pulse Ox 95% on R/A; jw7 23:00 BP 121 / 63; Pulse 101; Resp 18 S; Pulse Ox 96% on R/A; jw7 05/21 00:00 BP 129 / 60; Pulse 100; Resp 19 S; Pulse Ox 96% on R/A; jw7 01:29 BP 121 / 63; Pulse 97; Resp 19 S; Pulse Ox 96% on R/A; 7 05/20 18:11 Body Mass Index 38.09 (97.52 kg, 160.02 cm) ph ED Course: 05/20 18:08 Patient arrived in ED. kb 18:09 Stephanie Pablo FNP-C is [facility]. kb 18:09 Dilan Mansfield MD is Attending Physician. kb 18:13 Triage completed. ph 18:15 Arm band placed on Patient placed in an exam room. ph 18:15 Patient has correct armband on for positive identification. Bed in low position. Call ph light in reach. Side rails up X 1. Pulse ox on. NIBP on. Door closed. Noise minimized. 18:16 Adamaris Miguel, RN is Primary Nurse. nj1 18:28 Initial lab(s) drawn, by me, sent to lab. Maintain EMS IV. Dressing intact. Good blood ph return noted. Site clean \\T\\ dry. Gauge \\T\\ site: 22 R hand. IV is patent, with fluids infusing freely, with good blood return. 18:29 Lipase Sent. ph 18:29 CMP Sent. ph 18:29 CBC with Diff Sent. ph 18:48 Chest Single View XRAY In Process Unspecified. EDMS 19:03 Abdomen Limited US In Process Unspecified. EDMS 19:16 Report given to Jen PALMA. nj1 19:32 Lab(s) recollected, by me, sent to lab. jw7 22:55 Radiology exam delayed due to lab results not completed at this time. (BUN/Creatinine) eh4 IV insertion attempt and/or patient not having appropriate IV at this time. 05/21 00:30 Inserted saline lock: 22 gauge in right forearm, using aseptic technique. jw7 00:46 CT Abd/Pelvis - IV Contrast Only In Process Unspecified. EDMS 01:30 No provider procedures requiring assistance completed. jw7 01:58 IV discontinued, intact, bleeding controlled, No redness/swelling at site. Pressure jw7 dressing applied. 01:59 Provided Education on: discharge instructions and medications. jw7 Administered Medications: 05/20 18:29 Drug: Famotidine IVP 20 mg IVP once; dilute with 10 mL 0.9% NaCl; give over 2 minutes ph Route: IVP; Site: right hand; 20:50 Follow up: Response: No adverse reaction; Marked relief of symptoms jw7 20:50 Drug: Ondansetron Oral Disintegrating Tablet Oral Disintegrating Tablet 4 mg PO once jw7 Route: PO; 23:37 Follow up: Response: No adverse reaction; Marked relief of symptoms jw7 05/21 00:30 Drug: Ondansetron IVP 4 mg IVP once; over 2 minutes Route: IVP; Site: right forearm; jw7 01:54 Follow up: Response: No adverse reaction; Marked relief of symptoms jw7 00:30 Drug: morphine IVP or IV 4 mg IVP once over 4 mins Route: IVP; Infused Over: 4 mins; jw7 Site: right forearm; 01:54 Follow up: Response: No adverse reaction; Marked relief of symptoms jw7 Medication: 05/20 18:15 VIS not applicable for this client. ph Outcome: 05/21 01:20 Discharge ordered by . kb 01:55 Patient left the ED. jw7 01:58 Discharged to home via wheelchair, with family, jw7 01:58 Condition: stable 01:58 Discharge instructions given to patient, Instructed on discharge instructions, follow up and referral plans. medication usage, Demonstrated understanding of instructions, follow-up care, medications, Prescriptions given X 4, Signatures: Dispatcher [employer] EDIA Stephanie Pablo, DEN-C DEN-Sanaz Richards, RN RN Jen Nuno RN RN jw7 Harpreet [facility]4 Adamaris Miguel, RN RN nj1 Corrections: (The following items were deleted from the chart) 05/20 18:14 18:13 PMHx: Cancer; ph ph 18: 18:13 PMHx: Cancer; ph ph 05/21 00:31 00:10 Reassessment: Patient appears in no apparent distress at this time. Patient jw7 and/or family updated on plan of care and expected duration. Pain level reassessed. Patient is alert, oriented x 3, equal unlabored respirations, skin warm/dry/pink. c/o upper abdominal pain and nausea jw7
--- NOTE | 2023-05-21 07:58 | EKG ---
Test Date: 2023-05-20 Test Time: 18:17:01 Scheduling Agent: FORD MEASUREMENT RESULTS: Intervals: Rate: 114 IL: 150 QRSD: 80 QT: 306 QTc: 421 Arjay: P: 77 IL: 150 QRS: 55 T: 31 INTERPRETIVE STATEMENTS: Sinus tachycardia Otherwise normal ECG Compared to ECG 04/21/2022 20:25:25 Sinus rhythm no longer present Electronically Signed On 05-21-23 07:57:04 CDT by Jaime José
--- NOTE | 2023-05-21 15:08 | RAD REPORT ---
EXAM DESCRIPTION: Abdomen Pelvis W Contrast CLINICAL HISTORY: 62 years Female, ABD PAIN, VOMITING, FEVER TECHNIQUE: Helical CT axial images are obtained from the lung bases to the pubic symphysis with IV c ontrast. No oral contrast was administered. Multiplanar reconstruction. This exam was performed accor ding to our departmental dose-optimization program, which includes automated exposure control, adjust ment of the mA and/or kV according to patient size and/or use of iterative reconstruction technique. COMPARISON: September 23, 2022 FINDINGS: LUNG BASES: No basilar consolidation or effusions. LIVER: Normal in size. Normal attenuation. No focal masses. HEPATOBILIARY: Normal-appearing gallbladder. No intra- or extrahepatic ductal dilatation. SPLEEN: Normal size. PANCREAS: Normal size and contour. No focal mass. ADRENAL GLANDS: Normal size. No adrenal masses. KIDNEYS: Bilateral kidneys are normal in size without obstructing calculi or hydronephrosis. No nep hrolithiasis. Several scattered simple renal cysts, for which no further workup is warranted . No foc al solid mass. BOWEL AND MESENTERY: Fluid-filled nondistended distal third of small bowel and fluid-filled nondisten ded right colon. No small or large bowel dilatation. No colonic diverticulosis. Normal appendix. No abnormal mesenteric lymphadenopathy. No free fluid or pneumoperitoneum. RETROPERITONEUM: Normal caliber abdominal aorta without aneurysm. No abnormal retroperitoneal lymphad enopathy. PELVIS: Urinary bladder is unremarkable. Status post hysterectomy. ABDOMINAL WALL: Tiny umbilical fat-containing hernia. BONES: No suspicious osseous lytic or blastic lesions seen. IMPRESSION: 1. Fluid-filled nondistended distal third of small bowel and fluid-filled nondistended right colon, nonspecific finding but suggestive of enterocolitis. 2. Otherwise, no other acute intra-abdominal or pelvic disease. 3. Status post hysterectomy. Electronically signed by: Sridhar Robins MD 05/21/2023 1:02 AM CDT Due to temporary technical issues with the PACS/Fluency reporting system, reports are being signed by the in house radiologists without review as a courtesy to insure prompt reporting. The interpreting radiologist is fully responsible for the content of the report.
[2023-05-21 16:17] VITALS: BP 121/63; TEMP 99.8; O2SAT 96
== END 2023-05-21 01:55 | disposition home or self-care (01) ==
LOC: ER 18:06
DX: K52.9 Noninfective gastroenteritis and colitis, unspecified (principal); R07.9 Chest pain, unspecified; E11.65 Type 2 diabetes mellitus with hyperglycemia; Z85.3 Personal history of malignant neoplasm of breast; Z20.822 Contact with and (suspected) exposure to COVID-19
CPT/HCPCS: 93005; 85025; 36415; 82565; 84484; 83690; 80053; 87635; 87804 ×2; 74177; 71045; 76705; Q9967; Q0162; J2405